=== PATIENT | male | born 2000 ===

== ENCOUNTER 2022-03-12 01:13 | Inpatient (IN) | payer OTHER, SELFPAY ==
[2022-03-12] VITALS (16 sets, daily range): BP systolic 107–145; BP diastolic 59–94; PULSE 62–96; RESP 16–18; TEMP 36.3–37; O2SAT 97–100; BMI 31.7; BMI 31.2
--- NOTE | 2022-03-12 01:26 | ED_ITS ---
HPI - URI/Sore Throat General Time Seen by Provider: 01:26 Date Seen: 03/12/22 Chief Complaint: Sore Throat Stated Complaint: Swollen Tonsils, difficulty speaking Time Seen by Provider: 03/12/22 01:26 Source: patient and RN notes reviewed Mode of arrival: ambulatory Limitations: no limitations History of Present Illness HPI Narrative: KHALIF is a very pleasant 21-year-old male previously healthy who comes to the emergency room with 2 days of sore throat mainly on the left now with tonsillar swelling and change in his voice. He has never had this before. He denies a fever. He denies any belly pain. He notes that he is still able to breathe and swallow but it does cause him pain. He notes that he has pain radiating into his left ear. He has not taken any medications at this time. No nausea vomiting. Related Data Allergies Allergy/AdvReac Type Severity Reaction Status Date / Time No Known Drug Allergies Allergy Verified 03/12/22 01:33 Review of Systems Status of ROS: Reports: 10 or more systems reviewed and unremarkable except as noted in History and below Const: Denies: fever or chills ENMT: Reports: throat pain, throat swelling, difficulty swallowing and other (Change in voice); Denies: hoarseness Cardio: Denies: chest pain or shortness of breath with exertion Resp: Denies: shortness of breath or cough GI: Reports: difficulty swallowing; Denies: abdominal pain, nausea or vomiting Neuro: Denies: headache Allergy/Immuno: Reports: throat swelling Exam Narrative: Exam Narrative: KHALIF is alert and oriented. He looks fatigued but nontoxic in appearance. However, when he talks he has a definite muffled voice. Eyes are clear and TMs without erythema or fluid. He is breathing without difficulty but examination of his oral cavity shows that his tonsils are quite enlarged and touching. There is deviation of the uvula to the right. Left soft palate and peritonsillar area definitely more swollen than the right. Positive for anterior cervical lymphadenopathy could left greater than right. Neck is otherwise supple and he is moving his neck without difficulty. Heart with regular rate and rhythm and lungs are clear bilaterally. Abdomen soft. Moving all extremities. Const: Vital Signs, click to edit/add: Vital Signs - 24 hr 03/12/22 01:22 03/12/22 02:25 03/12/22 02:40 Temperature 97.3 F L Pulse Rate [Right Pulse Oximeter] 83 Respiratory Rate 16 Blood Pressure [Le ft Upper Arm] 129/94 H 117/92 H 135/87 Blood Pressure [Ri ght Upper Arm] Pulse Oximetry 97 Oxygen Delivery Me thod Room Air 03/12/22 03:09 03/12/22 03:30 03/12/22 04:00 Temperature Pulse Rate [Right Pulse Oximeter] 93 96 75 Respiratory Rate 18 18 18 Blood Pressure [Le ft Upper Arm] 143/89 H Blood Pressure [Ri ght Upper Arm] 141/86 H 127/85 Pulse Oximetry 100 99 98 Oxygen Delivery Me thod Room Air Room Air Room Air 03/12/22 04:30 03/12/22 05:00 03/12/22 05:30 Temperature Pulse Rate [Right Pulse Oximeter] 86 62 76 Respiratory Rate 18 18 18 Blood Pressure [Le ft Upper Arm] Blood Pressure [Ri ght Upper Arm] 132/81 133/73 120/72 Pulse Oximetry 100 100 100 Oxygen Delivery Me thod Room Air Room Air Room Air 03/12/22 06:00 03/12/22 06:30 Temperature Pulse Rate [Right Pulse Oximeter] 69 72 Respiratory Rate 18 18 Blood Pressure [Le ft Upper Arm] Blood Pressure [Ri ght Upper Arm] 107/59 L 133/81 Pulse Oximetry 99 100 Oxygen Delivery Me thod Room Air Room Air Documenting provider has reviewed patient's vital signs: yes Course Course Hospital Course: Past medical history: Healthy. No previous surgeries. Social history: Mom here. Family history: No problems with anesthesia. Recommend immediate placement of IV and contrast CT soft tissue neck along with CBC, comprehensive panel, CRP, COVID. Will initiate antibiotic Unasyn 3 g IV and dexamethasone 10 mg IV. Alert ENT as I a.m. quite concerned about this young man's airway. Do suggest move in to stay room. Reevaluation(s) Reevaluation #1: KHALIF has had an extreme reaction to any needles. Our nursing staff has been unable to even get close to DJ to place an IV. We have tried to explain multiple times the importance of a CT and treatment with antibiotics. In spite of that he is extremely challenging. At 1 point he starts vomiting and is very diaphoretic. We did try Ativan 0.5 mg atomizer. This did not help as what we had expected. Did have anesthesia in house and with multiple staff members coaxing him they were able to place an IV in the left antecubital fossa. He received antibiotics and was able to go to CT which unfortunately did show phlegmon. Note that the CT report states abscess but discussion with radiologist notes phlegmon or abscess not well defined at this time. Consultations Consultation #1: Dr. Odin Calderon, microsoft bi consultant came from his house to consult on DJ. He notes that he would recommend antibiotics at this time but would recommend surgery if he has any worsening symptoms. The ENT was able to view the CT while in-house. Agreed with radiology assessment of phlegmon. Vital Signs Vital signs: Initial Vital Signs Temperature 97.3 F L 03/12/22 01:22 Temperature Source Temporal Artery Scan 03/12/22 01:22 Pulse Rate 83 03/12/22 01:22 Respiratory Rate 16 03/12/22 01:22 Blood Pressure 129/94 H 03/12/22 01:22 Blood Pressure Mean 105 03/12/22 01:22 Blood Pressure Position Sitting 03/12/22 01:22 Pulse Oximetry 97 03/12/22 01:22 Oxygen Delivery Method 03/12/22 01:22 Vital Signs Temperature 97.3 F L 03/12/22 01:22 Pulse Rate 83 03/12/22 01:22 Respiratory Rate 16 03/12/22 01:22 Blood Pressure 129/94 H 03/12/22 01:22 Pulse Oximetry 97 03/12/22 01:22 Oxygen Delivery Method 03/12/22 01:22 Temperature 97.3 F L 03/12/22 01:22 Pulse Rate 72 03/12/22 06:30 Respiratory Rate 18 03/12/22 06:30 Blood Pressure 133/81 03/12/22 06:30 Pulse Oximetry 100 03/12/22 06:30 Oxygen Delivery Method 03/12/22 06:30 MDM - URI/Sore Throat MDM Narrative Medical decision making narrative: Assessment/plan 1. Tonsillitis-Decadron 10 mg IV. Recommend repeat in 6 hours. [place] negative but LFTs do appear to be elevated. 2.Phlegmon with developing abscess -Unasyn 3 g IV given prior to CT. Will repeat this dose every 6 hours. For worsening symptoms immediate contact with ENT. 3. Needle phobia -Ativan 0.5 mg x 1. At this time he is doing better and tolerating IV. He will not be tolerant of further draws unless getting some sort of sedative or perhaps EMLA application would be helpful in this case. 4. Disposition-patient will be admitted under the care of [facility] physician. ENT will round in the morning. Addendum: Patient noted that he was feeling better. He is allowed clear liquids per ENT. Obviously, for worsening symptoms he would need to be NPO. Lab Data Attestation: I reviewed the patient's lab results. Labs: Lab Results 03/12/22 03/12/22 03/12/22 Range/Units 02:25 02:25 02:25 WBC 18.83 H (4.50-11.00) K/uL RBC 4.98 (4.30-5.90) m/uL Hgb 15.0 (13.5-17.5) gm/dL Hct 44.3 (37.0-53.0) % MCV 89 (80-100) fL MCH 30 (26-34) pg MCHC 34 (32-36) gm/dL RDW Coeff of Nara 12.5 (11.5-15.5) % Plt Count 355 (140-440) K/uL Neut % (Auto) 77.1 H (42.0-72.0) % Lymph % (Auto) 13.0 L (20-44) % [place] % (Auto) 9.5 (0.0-11.0) % Eos % (Auto) 0.1 (0.0-7.0) % Baso % (Auto) 0.1 (0.0-3.0) % Neut # (Auto) 14.50 H (1.7-7.0) K/uL Lymph # (Auto) 2.40 (0.90-2.90) K/uL [place] # (Auto) 1.80 H (0.00-0.90) K/UL Eos # (Auto) 0.00 (0.00-0.50) K/uL Baso # (Auto) 0.00 (0.00-0.30) K/uL Abs Immat Gran (auto) 0.00 (0.00-0.30) K/uL Imm/Tot Granulo (auto) 0.2 % Sodium 140 (135-149) mmol/L Potassium Not Reportable Chloride 104 (96-114) mmol/L Carbon Dioxide 20 (20-32) mmol/L BUN 10 (5-24) mg/dL Creatinine 0.7 (0.5-1.5) mg/dL Estimated Creat Clear 168.33 Estimated GFR 135 ml/min Glucose 109 (60-115) mg/dL Calcium 9.9 (8.4-10.6) mg/dL Total Bilirubin 2.8 H (0.1-1.5) mg/dL AST 62 H (12-35) U/L ALT 31 (4-50) U/L Alkaline Phosphatase 159 H (40-150) U/L C-Reactive Protein 3.8 H (0.5-1.0) mg/dL Total Protein > 11.0 H (6.0-8.3) g/dL Albumin 5.6 H (3.3-5.0) g/dL SARS-CoV-2 (PCR) (Negative) Monoscreen Negative (Negative) 03/12/22 Range/Units 05:26 WBC (4.50-11.00) K/uL RBC (4.30-5.90) m/uL Hgb (13.5-17.5) gm/dL Hct (37.0-53.0) % MCV (80-100) fL MCH (26-34) pg MCHC (32-36) gm/dL RDW Coeff of Nara (11.5-15.5) % Plt Count (140-440) K/uL Neut % (Auto) (42.0-72.0) % Lymph % (Auto) (20-44) % [place] % (Auto) (0.0-11.0) % Eos % (Auto) (0.0-7.0) % Baso % (Auto) (0.0-3.0) % Neut # (Auto) (1.7-7.0) K/uL Lymph # (Auto) (0.90-2.90) K/uL [place] # (Auto) (0.00-0.90) K/UL Eos # (Auto) (0.00-0.50) K/uL Baso # (Auto) (0.00-0.30) K/uL Abs Immat Gran (auto) (0.00-0.30) K/uL Imm/Tot Granulo (auto) % Sodium (135-149) mmol/L Potassium Chloride (96-114) mmol/L Carbon Dioxide (20-32) mmol/L BUN (5-24) mg/dL Creatinine (0.5-1.5) mg/dL Estimated Creat Clear Estimated GFR ml/min Glucose (60-115) mg/dL Calcium (8.4-10.6) mg/dL Total Bilirubin (0.1-1.5) mg/dL AST (12-35) U/L ALT (4-50) U/L Alkaline Phosphatase (40-150) U/L C-Reactive Protein (0.5-1.0) mg/dL Total Protein (6.0-8.3) g/dL Albumin (3.3-5.0) g/dL SARS-CoV-2 (PCR) Negative SARS-CoV-2 (Negative) Monoscreen (Negative) Critical Care Time Critical Care Time Total Critical Care Time in Minutes: 60 Discharge Plan Discharge Clinical Impression: Acute tonsillitis, Phlegmon, Severe needle phobia Patient Disposition: Admitted As Inpatient Condition: Improved
[2022-03-12] MEDS: LORazepam 2 MG/ML inj 0.5 MG IV (02:00)
[2022-03-12] MEDS: ONDANSETRON ODT 4 MG TAB PO (02:15)
--- NOTE | 2022-03-12 02:28 | CRLHL7_ITS ---
For Patients: As a result of the Cures Act, medical imaging exams and procedure reports are released immediately into your electronic medical record. You may view this report before your referring provider. If you have questions, please contact your health care provider. DATE: 03/12/2022 CLINICAL HISTORY: Patient with bilateral tonsillar swelling, left greater than right. TECHNIQUE: Standard helical CT image acquisition of the neck up to the skull base after bolus intravenous contrast enhancement. Multiplanar reconstructed images performed on a separate workstation. COMPARISON: None. FINDINGS: There is bilateral tonsillar edema consistent with acute tonsillitis with near complete narrowing of airway at tonsillar level. There is an associated 2.0 x 1.2 x 1.6cm left tonsillar abscess and reactive bilateral cervical adenopathy measuring up to 1.3cm. The visualized intracranial contents are unremarkable. The visualized lung apices are unremarkable. The thyroid gland is unremarkable. The cervical spine is unremarkable. IMPRESSION: Bilateral tonsillar edema is consistent with acute tonsillitis causing near complete narrowing of airway at tonsillar level. There is an associated 2.0 x 1.2 x 1.6cm left tonsillar abscess and reactive bilateral cervical adenopathy measuring up to 1.3cm. Please note that all CT scans at this facility use dose modulation, iterative reconstruction, and/or weight-based dosing when appropriate to reduce radiation dose to as low as reasonably achievable. Dictated by Will Brar MD @ 03/12/2022 5:18:44 AM (Electronically Signed)
[2022-03-12 02:33] LABS: Basophils Percent Auto 0.1 % (0.0-3.0); Eosinophils Percent Auto 0.1 % (0.0-7.0); Hematocrit 44.3 % (37.0-53.0); Immature Granulocytes Pct Auto 0.2 %; Mean Corpuscular HGB Conc 34 gm/dL (32-36); Mean Corpuscular Hemoglobin 30 pg (26-34); Mean Corpuscular Volume 89 fL (80-100); Monocytes Percent Auto 9.5 % (0.0-11.0); Neutrophils Percent Auto 77.1 % (42.0-72.0); Platelet Count* 355 K/uL (140-440); RDW Coefficient of Variation % 12.5 % (11.5-15.5); Red Blood Count 4.98 m/uL (4.30-5.90); White Blood Count* 18.83 K/uL (4.50-11.00)
[2022-03-12 02:37] LABS: Slide Review Reflex No
[2022-03-12 02:40] LABS: Mono Screen* Negative (Negative)
[2022-03-12] MEDS: 0.9 % SODIUM CHLORIDE 1000 ml 1,000 ML IV (02:40)
[2022-03-12] MEDS: dexAMETHasone 10 MG/ML inj IVP ×2 (02:43→08:22)
[2022-03-12] MEDS: AMPICILLIN/SULBACTAM 3 GM in 0.9 % SODIUM CHLORIDE Mini-bag 100 ML IVPB ×4 (02:45→20:15)
[2022-03-12 02:48] LABS: Albumin* 5.6 g/dL (3.3-5.0); Chloride* 104 mmol/L (96-114); Sodium* 140 mmol/L (135-149)
[2022-03-12 02:51] LABS: Creatinine* 0.7 mg/dL (0.5-1.5); Est. Creatinine Clearance* 168.33; Estimated Glomerular Filt Rate 135 ml/min
[2022-03-12 02:52] LABS: Alkaline Phosphatase* 159 U/L (40-150); Bilirubin Total* 2.8 mg/dL (0.1-1.5); Blood Urea Nitrogen* 10 mg/dL (5-24); Calcium* 9.9 mg/dL (8.4-10.6); Carbon Dioxide* 20 mmol/L (20-32); Glucose* 109 mg/dL (60-115)
[2022-03-12 02:55] LABS: C Reactive Protein* 3.8 mg/dL (0.5-1.0)
--- NOTE | 2022-03-12 03:30 | ED.NURSE ---
Dr. Chávez in Pt room now, Pt mom at BS.
[2022-03-12 04:10] LABS: Aspartate Amino Transferase* 62 U/L (12-35); Total Protein* > 11.0 g/dL (6.0-8.3)
[2022-03-12 04:12] LABS: Alanine Aminotransferase* 31 U/L (4-50)
--- OUTSIDE RECORDS SUMMARY | 2022-03-12 04:42 | XMS_ITS | Encounter Summary ---
:2000 Author Organization Sincerely Address [address] [place] [address] Care Team Providers Name Role Phone Destiny Peralta MD Primary Care Provider Reason for Visit Reason Comments Patient Care Coordination Encounter Details Date Type Department Care Team Description 01/08/2014 Pt Care Coordination [facility] Destiny Peralta [address] [place] [place] [address] [address] [facility] [address] [phone] [place], [place] [address] (Wo rk) Social History Tobacco Use Types Packs/Day Years Used Date Smoking Tobacco: Passive Smoke Exposure - Never Smoker Comments: no smokers at home 11/13,matern all grandmother's home Alcohol Use Standard Drinks/Week Comments Not Asked 0 (1 standard drink = 0.6 oz pure alcoho l) Sex Assigned at Date Recorded Not on file documented as of this encounter Progress Notes Nicole Clemente RN - 01/22/2014 4:30 PM CDT Left message to call back. Nicole Clemente RN 01/22/2014, 4:30 PM Nicole Clemente RN - 01/20/2014 4:43 PM CDT Father states that Sue is in the shower. He will be able to talk on MondayJanuary 22 at 430pm. Will try him then. Nicole Clemente RN 01/20/2014, 4:48 PM Gillian Corrigan - 01/20/2014 4:38 PM CDT Father ( Elliot Ray ) calling you back, please try again. Nicole Clemente RN - 01/20/2014 3:45 PM CDT Left message to call back. Unable to reach by phone wrote letter to try to follow up with patient. Will try again in 1 month. Nicole Clemente RN 01/20/2014, 3:46 PM Nicole Clemente RN - 01/17/2014 4:02 PM CDT Left message to call back. Nicole Clemente RN 01/17/2014, 4:02 PM Nicole Clemente RN - 01/08/2014 2:20 PM CDT Left message to call back. Nicole Clemente RN 01/08/2014, 2:21 PM documented in this encounter Plan of Treatment Not on filedocumented as of this encounter Visit Diagnoses Not on filedocumented in this encounter Care Teams Bobbin Fixer Relationship Specialty Start Date End Date Destiny Peralta MD PCP - General Pediatric Medicine 09/23/13 01/21/15 [address] [place] [address] documented as of this encounter
--- OUTSIDE RECORDS SUMMARY | 2022-03-12 04:42 | XMS_ITS | Encounter Summary ---
:2000 Author Organization [employer] Address [address] [place] [address] Care Team Providers Name Role Phone Destiny Peralta MD Primary Care Provider Reason for Visit Reason Comments Patient Care Coordination Encounter Details Date Type Department Care Team Description 06/10/2014 Pt Care Coordination [facility] Destiny Peralta [address] [address] [address] [phone] [place], [place] [address] (Wo rk) Social History [...] encounter Progress Notes Nicole Clemente RN - 06/24/2014 4:43 PM CDT See Pt care coordination healthcare home notes. Nicole Clemente RN 06/24/2014, 4:46 PM Nicole Clemente RN - 06/20/2014 4:36 PM CDT Left message to call back. Nicole Clemente RN 06/20/2014, 4:36 PM Nicole Clemente RN - 06/13/2014 4:43 PM CST No answer. Rang and rang. Will try again later. Nicole Clemente RN 06/13/2014, 4:44 PM documented in this encounter Miscellaneous Notes Assessment & Plan Note - Nicole Clemente RN - 06/24/2014 4:41 PM CDTAssociated Problem(s): PT CARE COORDINATION - [facility] (Resolved 07/14/2014) Per father he has not had daiciyon for the past 2 weeks. His mother has not returned him. They are going back to court for this on 06/25/2014. Father states this is more of a civil matter. Will continuesame goals and check up in 3 weeks. Nicole Clemente RN 06/24/2014, 4:41 PM documented in this encounter Plan of Treatment Not on filedocumented as of this encounter Visit Diagnoses Not on filedocumented in this encounter Care Teams Residence Life Coordinator Relationship Specialty Start Date End Date Destiny Peralta MD PCP - General Pediatric Medicine 09/23/13 01/21/15 [address] [place] [address] documented as of this encounter
--- OUTSIDE RECORDS SUMMARY | 2022-03-12 04:42 | XMS_ITS | Encounter Summary ---
:2000 Author Organization [employer] Address [address] [place] [address] Care Team Providers Name Role Phone Michele Hernandez MD Primary Care Provider Encounter Details Date Type Department Care Team Description 10/09/2013 Correspondence External to External, Provid er SCHOOL ASSESSMENTS [place] [address] Social History Tobacco Use Types Packs/Day Years Used Date Smoking Tobacco: Passive Smoke Exposure - Never Smoker Comments: no smokers at home 11/13,matern all grandmother's home Alcohol Use Standard Drinks/Week Comments Not Asked 0 (1 standard drink = 0.6 oz pure alcoho l) Sex Assigned at Date Recorded Not on file documented as of this encounter Plan of Treatment Not on filedocumented as of this encounter Visit Diagnoses Not on filedocumented in this encounter Care Teams Is Support Analyst Relationship Specialty Start Date End Date Michele Hernandez MD PCP - General Family Practice 08/13/21 [address] [place], [place] [id number] documented as of this encounter
--- OUTSIDE RECORDS SUMMARY | 2022-03-12 04:42 | XMS_ITS | Encounter Summary ---
:2000 Author Organization [employer] Address [address] [place] [address] Care Team Providers Name Role Phone Destiny Peralta MD Primary Care Provider Reason for Visit Reason Comments Patient Care Coordination Encounter Details Date Type Department Care Team Description 04/22/2014 Pt Care Coordination [facility] Destiny Peralta [address] [place] [place] [address] [address] [facility] [address] [phone] [place], [place] [address] (Wo rk) Social History [...] encounter Progress Notes Nicole Clemente RN - 05/06/2014 3:13 PM CST Wrote letter since unable to reach by phone. Nicole Clemente RN 05/06/2014, 3:13 PM VIOUR SUPPORT TEACHER Nicole Clemente RN - 04/29/2014 4:32 PM CST Left message to call back. Nicole Clemente RN 04/29/2014, 4:32 PM VIOUR SUPPORT TEACHER Nicole Clemente RN - 04/25/2014 4:05 PM CST Left message to call back. Nicole Clemente RN 04/25/2014, 4:05 PM VIOUR SUPPORT TEACHER Nicole Clemente RN - 04/22/2014 3:55 PM CST Left message to call back. Nicole Clemente RN 04/22/2014, 3:55 PM VIOUR SUPPORT TEACHER documented in this encounter Plan of Treatment Not on filedocumented as of this encounter Visit Diagnoses Not on filedocumented in this encounter Care Teams Valve Grinder Relationship Specialty Start Date End Date Destiny Peralta MD PCP - General Pediatric Medicine 09/23/13 01/21/15 [address] [place] [address] documented as of this encounter
--- OUTSIDE RECORDS SUMMARY | 2022-03-12 04:42 | XMS_ITS | Encounter Summary ---
:2000 Author Organization [employer] Address [address] [place] [address] Care Team Providers Name Role Phone Destiny Peralta MD Primary Care Provider [phone] Encounter Details Date Type Department Care Team Description 07/14/2014 Notes/Orders [facility] En counter for [facility], long-term (current) [address] [place] [address] medications (Primary [phone] Dx) Social History Tobacco Use Types Packs/Day Years Used Date Smoking Tobacco: Passive Smoke Exposure - Never Smoker Comments: no smokers at home 11/13,matern all grandmother's home Alcohol Use Standard Drinks/Week Comments Not Asked 0 (1 standard drink = 0.6 oz pure alcoho l) Sex Assigned at Date Recorded Not on file documented as of this encounter Nursing Notes Vito Brown - 07/15/2014 12:24 PM CDT Letter was sent to patient. Vito Brown CMA 07/15/2014, 12:24 PM Interface, Out Surescripts Prov Query - 07/14/2014 12:45 PM CDT SCHEDULE THE FOLLOWING: - OFFICE VISIT BY: 09/19/2014 (Coming due as of 09/19/2014 for montelukast (SINGULAIR) 5 MG chewabletablet) - LAST QUALIFYING VISIT IN PEDIATRICS: 09/24/2013 - NEXT SCHEDULED VISIT: None - NEXT LAB APPOINTMENT: None Powered by [employer], Reference: [id number], 07/14/2014 12:45:47 PM CDT, Pool: TAMMY BENAVIDES RN ([id number]) documented in this encounter Plan of Treatment Not on filedocumented as of this encounter Visit Diagnoses Diagnosis Encounter for long-term (current) use of other medications - Primary documented in this encounter Care Teams Director Of Preclinical Research Relationship Specialty Start Date End Date Destiny Peralta MD PCP - General Pediatric Medicine 09/23/13 01/21/15 [address] [place] [address] documented as of this encounter
--- OUTSIDE RECORDS SUMMARY | 2022-03-12 04:42 | XMS_ITS | Encounter Summary ---
:2001 Author Organization [employer] Address [address] [place] [address] Care Team Providers Name Role Phone Destiny Peralta MD Primary Care Provider Reason for Visit Reason Comments Patient Care Coordination Encounter Details Date Type Department Care Team Description 07/14/2014 Pt Care Coordination [facility] Destiny Peralta [address] [address] [address] [facility] [address] [phone] [place], [place] [address] (Wo rk) Social History [...] encounter Progress Notes Nicole Clemente RN - 07/14/2014 4:41 PM CDT Patient is no longer living with father and now living with mother. Nicole Clemente RN 07/14/2014, 4:41PM documented in this encounter Plan of Treatment Not on filedocumented as of this encounter Visit Diagnoses Not on filedocumented in this encounter Care Teams Risk Compliance Manager Relationship Specialty Start Date End Date Destiny Peralta MD PCP - General Pediatric Medicine 09/23/13 01/21/15 [address] [facility] [place] [address] documented as of this encounter
--- OUTSIDE RECORDS SUMMARY | 2022-03-12 04:42 | XMS_ITS | Encounter Summary ---
:2000 Author Organization [employer] Address [address] [place] [address] Care Team Providers Name Role Phone Garfield Mock MD Primary Care Provider Unavailable Reason for Visit Reason Comments Refill VENTOLIN HFA 108 (90 BASE) M CG/ACT inhaler [Pharmacy Med Name: VENTOLIN HFA INH W/DOS CTR [id number]] Encounter Details Date Type Department Care Team Description 08/22/2015 Refill [facility] Garfield Mock Refi ll (VENTOLIN HFA 108 Kapil White MD (90 BASE) MCG/ACT [address] [place] [address] inhaler [[place] [address] MAIL STOP [id number] Name: VENTOLIN HFA INH [phone] [place], [place] W/DOS CTR 20 [id number]]) [address] Social History Tobacco Use Types Packs/Day Years Used Date Smoking Tobacco: Never Smokeless Tobacco: Never Alcohol Use Standard Drinks/Week Comments Not Asked 0 (1 standard drink = 0.6 oz pure alcoho l) Sex Assigned at Date Recorded Not on file documented as of this encounter Nursing Notes Garfield Mock MD - 08/24/2015 2:49 PM CDT Medication refill is ok and sent to pharmacy electronically. Isabell Solorio RN - 08/24/2015 9:55 AM CDT Routing to [facility] to assign PCP and then route to provider for refill. If no longer [facility] pt, please ask them to notify pharmacy to no longer send refills to [facility]. Isabell Solorio, RN Interface, Out Worlize Prov Query - 08/22/2015 1:51 PM CDT VENTOLIN HFA 108 (90 BASE) MCG/ACT inhaler [Pharmacy Med Name: VENTOLIN HFA INH W/DOS CTR [id number]] Protocol: Respiratory - Bronchodilator Inhalers -> Refill x 6 months (until due for an office visit) Last qualifying visit: 11/26/2014 (in Family Practice) Next scheduled visit: None Last ordered: 11/26/2014 (269 days ago) QTY: 25.5, Refills: 2, Sig: inhale 2 puffs by mouth every 4 hours as needed for wheezing (coughing). (changed but equivalent) Powered by [employer], Reference: [id number], 08/22/2015 1:51:11 PM CDT, Pool: WAYNE BENAVIDES RN ([id number]) documented in this encounter Plan of Treatment Not on filedocumented as of this encounter Visit Diagnoses Not on filedocumented in this encounter Care Teams Deodorizer Operator Relationship Specialty Start Date End Date Garfield Mock MD PCP - General Family Practice 08/24/15 08/12/21 documented as of this encounter
--- OUTSIDE RECORDS SUMMARY | 2022-03-12 04:42 | XMS_ITS | Encounter Summary ---
:2000 Author Organization [employer] Address [address] [place] [address] Care Team Providers Name Role Phone Michele Hernandez MD Primary Care Provider Encounter Details Date Type Department Care Team Description 02/18/2015 Scanned History External to External, Provid er SCHOOL - [employer]ITTEN [place] [address] Social History Tobacco Use Types Packs/Day Years [...] on filedocumented in this encounter Care Teams Spa Coordinator Relationship Specialty Start Date End Date Michele Hernandez MD PCP - General Family Practice 08/13/21 [address] [place], [place] [id number] documented as of this encounter
--- OUTSIDE RECORDS SUMMARY | 2022-03-12 04:42 | XMS_ITS | Encounter Summary ---
:2000 Author Organization [employer] Address [address] [place] [address] Care Team Providers Name Role Phone Garfield Mock MD Primary Care Provider Unavailable Reason for Visit Reason Comments Dental Conversion [facility] to [place] convers ion Encounter Details Date Type Department Care Team Description 09/15/2016 Dental Conversion [facility] General [facility], DDS [address] [place] [id number] [phone] Social History Tobacco Use Types Packs/Day Years [...] on filedocumented in this encounter Care Teams Drawing In Machine Tender Relationship Specialty Start Date End Date Garfield Mock MD PCP - General Family Practice 08/24/15 08/12/21 documented as of this encounter
--- OUTSIDE RECORDS SUMMARY | 2022-03-12 04:42 | XMS_ITS | Encounter Summary ---
:2000 Author Organization [employer] Address [address] [place] [address] Care Team Providers Name Role Phone Garfield Mock MD Primary Care Provider Unavailable Reason for Visit Reason Comments WELL CHILD EXAM Encounter Details Date Type Department Care Team Description 02/24/2016 Office Visit [facility] Pebbles Herring, Encounter for routine [address] child health [place], [place] [address] [address] examination without [phone] [place], [place] abnormal fin dings [id number] (Primary Dx) Social History Tobacco Use Types Packs/Day Years Used Date Smoking Tobacco: Never Smokeless Tobacco: Never Alcohol Use Standard Drinks/Week Comments Not Asked 0 (1 standard drink = 0.6 oz pure alcoho l) Sex Assigned at Date Recorded Not on file documented as of this encounter Last Filed Vital Signs Vital Sign Reading Time Taken Comments Blood Pressure 117/65 02/24/2016 3:04 PM WILDLIFE PROTECTOR Pulse 69 02/24/2016 3:04 PM WILDLIFE PROTECTOR Temperature 36.2 ??C (97.2 ??F) 02/24/2016 3:04 PM WILDLIFE PROTECTOR Respiratory Rate - - Oxygen Saturation - - Inhaled Oxygen Concentration - - Weight 72.6 kg (160 lb) 02/24/2016 3:04 PM WILDLIFE PROTECTOR Height 167 cm (5' 5.75) 02/24/2016 3:04 PM WILDLIFE PROTECTOR Body Mass Index 26.02 02/24/2016 3:04 PM WILDLIFE PROTECTOR Body Mass Index Percentile 94.70 % 02/24/2016 3:04 PM CS T Growth Chart: CDC (Boys, 2-20 Years) documented in this encounter Patient Instructions Patient InstructionsPebbles Herring MD - 02/24/2016 3:37 PM CST 13-14 Year Well Adolescent We would like to see Sue back every other year. If there are any problems before that time, don???t hesitate to call the clinic during business hours. Otherwise, you can call our Careline at [phone] or for 24 hour service. Development ?? Your adolescent may have questions or concerns about puberty and sexual health. ?? Talk about relationships, sex, and values. ?? Friendships will become more important. Peer pressure may begin or continue. ?? Limit your adolescent to 1 to 2 hours of quality screen time each day, according to the [place] [employer] (AAP). Screen time includes television, video game and computer use. Watch TV with your child and supervise Internet use (including social networking sites). ?? The AAP advises keeping TVs, video games and computers out of children???s and teen???s bedrooms. ?? Continue a routine for talking about school and doing homework. The AAP advises you not let your adolescent watch TV while doing homework. ?? Encourage your adolescent???to read for pleasure. ?? Teach your adolescent respect for property and other people. ?? Give your adolescent opportunities for independence within set boundaries. ?? Talk honestly with your adolescent about responsibilities and expectations around: school and homework, dating, driving, activities outside of school, keeping a job. Diet ?? Try to eat together as a family often. ?? Lean beef, iron-fortified cereal, oatmeal, soybeans, spinach and tofu are good sources of iron. ?? Breakfast is important. Make sure your adolescent eats a healthful breakfast every morning. ?? Help your adolescent choose fiber-rich fruits, vegetables and whole grains. Choose and prepare foods and beverages with little added sugars or sweeteners. ?? Offer your adolescent healthful snacks such as fruits, vegetables, healthful cereals, yogurt, pudding, turkey, peanut butter sandwich, fruit smoothie, or cheese. Avoid foods high in sugar or fat. ?? Limit soft drinks and sweetened beverages (including juice) to less than one a day. Limit sweets,treats, snack foods (such as chips), fast foods and fried foods. ?? Drink water and milk instead of sports drinks. Exercise ?? The [place] [employer] recommends adolescents get 60 minutes of moderate to vigorous physical activity each day. If your adolescent???s school does not offer regular physical education classes, organize daily family activities (such as walking or bike riding) or consider enrolling him in cla sses, team sports, or community education activities. ?? In addition to helping build strong bones and muscles, regular exercise can reduce risks of certain diseases, reduce stress levels, increase self-esteem, help maintain a healthy weight, improve concentration, and help maintain good cholesterol levels. ?? Even if your adolescent doesn???t think it???s ???cool,?? he needs to wear the right safety gearfor his activities, such as a helmet, mouth guard, knee pads, eye protection or life vest. Sleep ?? Adolescent's ages 12 to 18 need at least 9 hours of sleep each night on a regular basis. ?? Your adolescent should continue a sleep routine (such as washing his face and brushing teeth). ?? It is still important to keep a regular sleep and waking schedule. Safety ?? When riding in a car, your adolescent needs to be buckled with a lap and shoulder belt. At 13 years old, he may ride in the front seat. (Follow directions from your health care provider.) ?? Do not let anyone smoke in your home or around your adolescent. ?? Talk with your adolescent about the dangers of alcohol, drug and tobacco use. ?? Make sure your adolescent understands safety guidelines for fire, water, animal safety, firearms,social networking Internet sites, and personal safety (including dating). Self-esteem ?? Provide support, attention and enthusiasm for your adolescent???s abilities, achievements and school activities. Show your child affection. ?? Get to know your adolescent???s friends and their parents. ?? Let your child try new skills. ?? Older teenagers may want to begin dating. Set boundaries and talk honestly with your child about your family???s values and morals. ?? Help your adolescent find healthy ways to deal with stress, including talking about concerns. Discipline ?? Teach your adolescent consequences for unacceptable or inappropriate behavior. Talk about your family???s values and morals and what is right and wrong. ?? Use discipline to teach, not punish. Be fair and consistent with discipline. Dental Care ?? Make sure your child brushes his teeth twice a day and flosses once a day. ?? Make regular dental appointments for cleanings and checkups. Thank you for choosing [email or web address] It has been a pleasure taking care of your child today. A dentist appointment each year is important for your child's health. Your child's insurance may payfor this. If you don't know where to take your child to see the dentist, check your child's insurance card or call [phone] for help. LIFE PROTECTOR documented in this encounter Progress Notes Pebbles Herring MD - 02/24/2016 3:37 PM CST [id number] SPORTS QUALIFYING PHYSICAL HISTORY FORM [employer] Student name: Sue Ray Birthdate: 2000 Date of exam: 02/24/2016 History GENERAL QUESTIONS No *1. Has a doctor ever denied or restricted your participation in sports for any reason or told you to give up sports? No 2. Do you have an ongoing medical condition (like diabetes, asthma, anemia, infections)? No 3. Are you currently taking any prescription or nonprescription (myej-iya-ytrpild) medicines or pills? List: none Yes 4. Do you have allergies to medicines, pollens, foods, or stinging insects? No 5. Have you ever spent the night in a hospital? No 6. Have you ever had surgery? HEART HEALTH QUESTIONS ABOUT YOU No *7. Have you ever passed out or nearly passed out DURING exercise? No *8. Have you ever passed out or nearly passed out AFTER exercise? No *9. Have you ever had discomfort, pain, tightness, or pressure in your chest during exercise? No *10. Does your heart race or skip beats (irregular beats) during exercise? 11. Has a doctor ever told you that you have: No High blood pressure? No A heart murmur? No High cholesterol? No A heart infection? No Rheumatic fever? No Kawasaki's disease? No 12. Has a doctor ever ordered a test for your heart? (for example, ECG/EKG, echocardiogram, stress test) No *13. Do you get lightheaded or feel more short of breath than expected during exercise? No *14. Have you ever had an unexplained seizure? No 15. Do you get more tired or short of breath more quickly than your friends during exercise? HEART HEALTH QUESTIONS ABOUT YOUR FAMILY No *16. Has any family member or relative of heart problems or had an unexpected or unexplainedsudden before age 50 (including unexplained drowning, unexplained car accident, or sudden infant syndrome? No *17. Does anyone in your family have hypertrophic cardiomyopathy, Marfan syndrome, arrhythmogenicright ventricular cardiomyopathy, long QT syndrome, short QT syndrome, Brugada syndrome, or catecholaminergic polymorphic ventricular tachycardia? No *18 Does anyone in your family have a heart problem, pacemaker, or implanted defibrillator? No *19. Has anyone in your family had unexplained fainting, unexplained seizures, or near drowning? BONE AND JOINT QUESTIONS No 20. Have you ever had an injury, like a sprain, muscle or ligament tear or tendonitis that causedyou to miss a practice or game? No 21. Have you had any broken or fractured bones or dislocated joints? No 22. Have you ever had an injury that required x-rays,MRI, CT scan, injections, therapy, a brace, a cast, or crutches? No 23. Have you ever had a stress fracture? No 24. Have you ever been told that you have or have you had an x-ray for neck instability or atlantoaxial instability? (Down syndrome or dwarfism) No 25. Do you regularly use a brace, orthotics or other assistive device? No 26. Do you have a bone, muscle, or joint injury that bothers you? No 27. Do any of your joints become painful, swollen, feel warm, or look red? No 28. Do you have any history of juvenile arthritis or connective tissue disease? MEDICAL QUESTIONS yes 29. Has a doctor ever told you that you have asthma or allergies? no 30. Do you cough, wheeze, experience chest tightness, or have difficulty breathing during or after exercise? yes 31. Is there anyone in your family who has asthma? yes 32. Have you ever used an inhaler or taken asthma medicine? No 33. Do you develop a rash or hives when you exercise? No 34. Were you born without or are you missing a kidney, an eye, a testicle (males), or any other organ? No 35. Do you have groin pain or a painful bulge or hernia in the groin area? No *36. Have you had infectious mononucleosis (mono) within the last month? No 37. Do you have any rashes, pressure sores, or other skin problems? No 38. Have you had a herpes or MRSA skin infection? No *39. Have you ever had a head injury or concussion? No *40. Have you ever had a hit or blow to the head that caused confusion, prolonged headache, or memory problems? No 41. Do you have a history of seizure disorder? No 42. Do you have headaches with exercise? No *43. Have you ever had numbness, tingling, or weakness in your arms or legs after being hit or falling? No 44. Have you ever been unable to move your arms or legs after being hit or falling? No 45. Have you ever become ill while exercising in the heat? No 46. Do you get frequent muscle cramps when exercising? No 47. Do you or someone in your family have sickle cell trait or disease? No 48. Have you had any problems with your eyes or vision? No 49. Have you had any eye injuries? No 50. Do you wear glasses or contact lenses? No 51. Do you wear protective eyewear, such as goggles or a face shield? No 52. Do you worry about your weight? No 53. Are you trying to or has anyone recommended that you gain or lose weight? No 54. Are you on a special diet or do you avoid certain types of foods? No 55. Have you ever had an eating disorder? No 56. Do you have any concerns that you would like to discuss with a doctor? FEMALES ONLY na 57. Have you ever had a menstrual period? na 58. How old where you when you had your first menstrual period? na 60. How many menstrual periods have you had in the last year? Notes: none Follow-Up Questions About More Sensitive Issues: 1. Do you feel stressed out or under a lot of pressure? No 2. Do you ever feel so sad or hopeless that you stop doing some of your usual activities for more than a few days? No 3. Do you feel safe? Yes 4. Have you ever tried cigarette, cigar, or pipe smoking, even 1 of 2 puffs? No Do you currently smoke? No 5. During the past 30 days, did you use chewing tobacco, snuff, or dip? No 6. During the past 30 days, have you had any alcohols, even just one? No 7. Have you ever taken steroid pills or shots without a doctor's prescription? No 8. Have you ever taken any medications or supplements to help you gain or lose weight or improve your performance? No 9. Question Risk Behaviors like guns, seatbelts, unprotected sex, domestic violence, drugs, and others. Notes About Follow-Up Questions: none Subjective Sue Ray is a 15 y.o. male who presents accompanied by his mother for routine childcare aide. Parental/Patient Concerns absent SCHOOL Name: [employer] Grade: 9th Success: doing well Sports/Recreational Activities Sports: basketball Exercise: adequate Cardiovascular Risk: none Extracurricular Activities: none Recreation/Hobbies/TV: 2 hours/day screen time and does not read daily I have reviewed and updated the family, past and surgical history. Daily Activities Nutrition: well balanced and varied diet, adequate milk intake Sleep: adequate sleep Dental Care: last dental visit within 6 months brushes daily Developmental Assessment Family/Relationships/Community Current Living Situation: lives with mom, step dad and sister Family: no problems identified Peer: sociable Abuse: absent Mental Health Issues: None Active Support/Resources: Family/Friends Environmental Risks Tuberculosis Screening: Not indicated Review of Systems Detailed review of systems including constitutional, skin, eyes, ENT, resp, CVS, GI & , revealed no abnormality except as detailed above. Required Testing Hemoglobin Prior Hgb: HGB (g/dl) Date Value 02/23/2004 12.4 Hemoglobin test required?: Yes (Menstruating, no testing since age 13) Kidney/Bladder Screening: Prior Urine: No results found for: ULEUK Urinalysis required?: Yes (no urinalysis since age 13) Objective BP 117/65 mmHg Pulse 69 Temp(Src) 97.2 ??F (36.2 ??C) (Tympanic) Ht 5' 5.75 (1.67 m) Wt 160lb (72.576 kg) BMI 26.02 kg/m2 Estimated body mass index is 26.02 kg/(m^2) as calculated from the following: Height as of this encounter: 5' 5.75 (1.67 m). Weight as of this encounter: 160 lb (72.576 kg). Hearing Screening 125Hz 250Hz 500Hz 1000Hz 2000Hz 4000Hz 8000Hz Right ear: 20 10 5 0 5 Left ear: 10 5 0 5 5 Visual Acuity Screening Right eye Left eye Both eyes Without correction: 10/10 10/10 With correction: Normal Abnormal GENERAL X HEENT Head X Eyes/Nose X Ears X Mouth/Pharynx X NECK X LYMPHATICS X LUNGS X CV X ABDOMEN X X MS X NEURO X SKIN X Vision Objective exam completed. No problems found. and Subjective assessment. No problems found Visual Acuity Screening performed and documented in nurse's note. Hearing Objective exam completed. No problems found. and Subjective assessment. No problems found Audiogram passed. Toi Staging GENITALS 4: penis larger, glans developed, scrotum darkened PUBIC HAIR 4: adult type hair, but less than adult, no spread to medial thighs Assessment Healthy young adolescent. Cleared for sports without restriction Plan Per orders and patient instructions. Plan: Immunizations: Up-to-Date and Health Maintenance: Lifestyle, health, and safety counseling Counseling Immunizations: Reviewed benefits of receiving immunizations with parents, including deferring immunizations puts their child(amari) at risk of acquiring and transmitting vaccine-preventable disease(s). Informed that it is strongly recommended by this clinician, the [place] [employer]s, the [place] [employer], and the Centers for Disease Control and Prevention that vaccinesbe given according to recommendations. Parent deferred vaccinations at today's visit. Vaccine information sheets on deferred vaccinations provided. Social: peer pressure Parenting: increased autonomy in decision making Nutrition: age specific nutritional needs and Counseling about nutrition provided to patient and/or parent Play and communication: organized sports/regular exercise and appropriate use of TV/video games (total Screen Time) Health: Counseling about physical activity provided to patient and/or parent Dental: Reinforced benefits of daily dental care. Emphasized need for annual dental exam by a licensed dentist Safety: no safety issues identified. child should ride in care seat until .he reaches 80 lbs child should wear helmet when riding bicycle, scooter or skates install smoke/carbon monoxide detectors in home Sexuality: the following issues were discussed: self testicular exam Transition Readiness (Pediatric to Adult Medicine): Discussed Pediatric Transitions to Adult Care: Age & Transition Topics to Review Follow-up Next preventive health care visit in 1 year Pebblse Herring MD LIFE PROTECTOR documented in this encounter Plan of Treatment Not on filedocumented as of this encounter Visit Diagnoses Diagnosis Encounter for routine child health exami nation without abnormal findings - Primary Routine or child health check documented in this encounter Care Teams Archivist [employer] History Relationship Specialty Start Date End Date Garfield Mock MD PCP - General Family Practice 08/24/15 08/12/21 documented as of this encounter
--- OUTSIDE RECORDS SUMMARY | 2022-03-12 04:42 | XMS_ITS | Encounter Summary ---
:2000 Author Organization [facility] Address [address] [place] [address] Care Team Providers Name Role Phone Destiny Peralta MD Primary Care Provider [phone] Reason for Referral Consult/Transfer Care (Routine) - Closed Specialty Diagnoses / Procedures Referred By Contact Refer red To Contact Destiny Peralta MD [address] [place] [address] Referral ID Status Reason Start Date Expiration Date Visits Requ ested Visits Authorized [id number] Closed 10/08/2013 01/07/2015 1 1 Scheduling Instructions Your provider has recommended an appoint ment with a [facility] nurse. A maintenance scheduler will contact you within the next 3 in days to assist you in setting up this appointment. Reason for Visit Reason Comments Follow-up, NOS asthma,multiple Encounter Details Date Type Department Care Team Description 10/08/2013 Office Visit [facility] Sena Peralta pe rsistent asthma, uncomplicated (Primary Dx); Department Destiny Elizondo MD Allergic rhinitis; [address] Stress at home; [place] [address] [place] [address] Mood problem [phone] Social History Tobacco Use Types Packs/Day Years [...] Sign Reading Time Taken Comments Blood Pressure 101/67 10/08/2013 9:27 AM CDT Pulse 80 10/08/2013 9:27 AM CDT Temperature 36.2 ??C (97.2 ??F) 10/08/2013 9:27 AM CDT Respiratory Rate 19 10/08/2013 9:27 AM CDT Oxygen Saturation 100% 10/08/2013 9:27 AM CDT Inhaled Oxygen Concentration - - Weight 44 kg (97 lb) 10/08/2013 9:27 AM CDT Height - - Body Mass Index - - documented in this encounter Patient Instructions Patient InstructionsNicole Clemente RN - 10/08/2013 2:15 PM CDT If you have any questions or concerns please contact: Your Care Team at [facility] Department :[phone] opt. 7 Primary Care Provider: Destiny Peralta MD RN Coordinator: Nicole VASQUES CareLine at [phone] or after hours and on weekends. Care Coordination (Community Resources, Specialists, Home Health Agency, Caregiver, Supply Vendor, Commanding Officer Homicide Squad) Contact Name KRISTI Obtained? Phone Number Role in Care Comments Action Plan Sue's Chosen Goal: To work on his mental health Detailed Action Steps to Achieve Goal & Who Will Complete: Sue will ride his bike with his sister twice a week for a half hour after school for 4 weeks starting October 14, 2013. Sue will ask his father once a week if he can hang out with a friend at school starting October. Sue will get contact information from friends at school starting October 09, 2013. Father will call to make Sue a therapy appointment before next scheduled telephone visit. Confidence Level: On a scale of 1-10, Sue's confidence level to achieve this goal is 8 Date Goal Achieved Additional Patient Instructions 1. If you need anything prior to the next scheduled telephone visit please call Nicole or Caryn at [phone] Opt. 7 Follow-Up Nicole will follow-up with Sue and Timo by phone on October 21, 2013. documented in this encounter Progress Notes Destiny Peralta MD - 10/08/2013 9:39 AM CDT Sue Ray is a 12 yr old male who presents to clinic with father for a shared RN visit due follow-up on multiple concerns: Asthma- pt completed prednisone x 5 days, and used albuterol inhaler, flovent 44 two puffs BID for aweek or so (father not exactly sure) for an acute asthma exacerbation. Please see my note in EPIC from 09/24 for details. He has also been taking montelukast and loratadine. Pt pretty much seems back tohis baseline according to father. Coughing and wheezing or completely resolved. Father continues to have concerns about him having shallow breathing and breathing through his mouth during sleep. He hasnot waking up at night with any breathing difficulties. Patient does continue to have concerns that he has difficulty with his breathing when he is being physically active/playing sports. He has not been using albuterol prior to physical activity. Asthma severity: moderate persistent asthma symptoms based on daily asthma symptoms on PRN albuterolonly (prior to 09/24 when the above meds were started). Asthma Control Test - Peds 10/08/2013 ACT Total 11 Risk Assessment 1 Today's ACT reflects symptoms that were occuring prior to starting above meds. Father brings parent development the/behavioral questionnaire for my review. Father is concerns: Whyis patient's so scared and emotional? Why is he nervous all the time? Why is he afraid to open up and talk to me? Father first noticed these issues when he gained custody of the patient and whenever hereturns from mother's house. Patient spends two weekends a month with his mother and is otherwise living with father. Father has full custody. What are your child's strengths: Father notes the patient as artistic, a great leader when he comes out of his show, compassionate, and at times appears to be responsible. He does have an individualized education plan at school. Family history: A nephew with is noted to have ADD. Anxiety and depression are also present in the family. Child health history: Father has concerns about frequent and/or severe headaches, frequent stomachaches, and developmentally he has concerns about socializing and writing. Father's education level XIIth grade. He is employed full-time as a high school music instructor. Father completed the initial [place] assessment: Four symptoms of inattention were marked as being observed often or very often. One symptom of hyperactivity was notedvery often. Please see smart forms for full details. [place] form (from father only) suggests depr ession/anxiety. Pt has been seen Aunchristina Purcell once in the past, but no follow-up appt has been made yet. I did encourage dad to do this at previous visit. Outpatient Prescriptions Prior to Visit Medication Sig Dispense Refill ??? ALBUterol sulfate hfa 108 (90 BASE) MCG/ACT inhaler Inhale 2 Puffs by mouth every 4 hours as needed for Wheezing (coughing). 18 g 3 ??? diphenhydrAMINE (BENADRYL) 25 MG capsule Take 1 Cap by mouth every 6 hours as needed for Itchingor Allergies. 30 Cap 1 ??? EPINEPHrine (AUVI-Q) 0.3 MG/0.3ML SAMMIE injection Inject 0.3 mL intramuscularly once as needed for 1 dose. 1 Each 1 ??? EPINEPHrine (EPIPEN) 0.3 MG/0.3ML injection Inject 0.3 mL intramuscularly once as needed for up to 1 dose. into thigh as directed for and/or potential for an allergic reaction 2 Each 1 ??? fluticasone (FLONASE) 50 MCG/ACT nasal solution Apply or instill 1 Point Clear into both nostrils daily. 16 g 5 ??? fluticasone (FLOVENT HFA) 44 MCG/ACT inhaler Inhale 2 Puffs by mouth two times a day. Increase per Asthma Action Plan when in yellow or red zone. 10.6 g 3 ??? loratadine (AKA CLARITIN) 10 MG tablet Take 1 Tab by mouth daily. 30 Tab 3 ??? montelukast (SINGULAIR) 5 MG chewable tablet Take 1 Tab by mouth daily. 90 Tab 2 ??? predniSONE (AKA DELTASONE) 20 MG tablet Take 1 Tab by mouth two times a day for 5 days. 10 Tab 0 No facility-administered medications prior to visit. Allergies Allergen Reactions ??? Shellfish Allergy Other, see comments Swelling ,rash,hives Objective Blood pressure 101/67, pulse 80, temperature 97.2 ??F (36.2 ??C), temperature source Tympanic, resp.rate 19, weight 97 lb (43.999 kg), SpO2 100 %. General: Alert, tearful, cooperative young man Lungs clear bilaterally with no wheezing or crackles. Assessment/Plan 1. Moderate persistent asthma, uncomplicated - restart Flovent 44, 2 puffs BID and continue until seen in follow-up in 2 months. Also continue albuterol PRN and before sports/exercise. Continue Singulair. 2. Allergic rhinitis- continue loratadine. Take Flonase consistently every night for the next 2 months. I hope this will improve his mouth breathing. 3. Family stress, mood problem- Schedule counseling visit SAM. RTC in 2 months for asthma and allergies follow-up visit. Seek care sooner with concerns. Please see patient instructions and orders. Call or return to clinic if these symptoms worsen or fail to improve as anticipated. Destiny Peralta MD documented in this encounter Plan of Treatment Scheduled Referrals Name Type Priority Associated Diagnoses Order S [facility] NURSE APPOINTMENT Referral Routine Ordered: 0 10/08/2013 ADULT/PEDS [[id number]] documented as of this encounter Visit Diagnoses Diagnosis Moderate persistent asthma, uncomplicate d ([facility]) - Primary Unspecified asthma Allergic rhinitis Allergic rhinitis, cause unspecified Stress at home ([facility]) Unspecified family circumstance Mood problem ([facility]) Other mental problems documented in this encounter Care Teams Bottle Capping Machine Operator Relationship Specialty Start Date End Date Destiny Peralta MD PCP - General Pediatric Medicine 09/23/13 01/21/[address] [place] [id number] documented as of this encounter
--- OUTSIDE RECORDS SUMMARY | 2022-03-12 04:42 | XMS_ITS | Encounter Summary ---
:2000 Author Organization [facility] Address [address], [place] [address] Care Team Providers Name Role Phone Destiny Peralta MD Primary Care Provider [phone] Reason for Visit Reason Comments Patient Care Coordination Encounter Details Date Type Department Care Team Description 02/05/2014 Pt Care Coordination [facility] Destiny Peralta [address] [place] [address] [address] [facility] [phone] [place], [place] [address] (Wo rk) Social History [...] encounter Progress Notes Nicole Clemente RN - 02/05/2014 4:10 PM CDT Left message to call back. Nicole Clemente RN 02/05/2014, 4:10 PM IGN AGENT documented in this encounter Miscellaneous Notes Assessment & Plan Note - Nicole Clemente RN - 02/10/2014 4:59 PM CSTAssociated Problem(s): PT CARE COORDINATION - [facility] (Resolved 07/14/2014) Father is upset that he never knows what is going on with his son since he doesn't talk. Per father he clams up in his little shell. Father states that Aunchristina Purcell told him that he should see a psychiatrist and maybe get him on some medication. Father keeps stating that he is going through the steps.He is also nervous that its affecting the other kids in the household. The other kids noticing that he is getting away with things because Timo doesn't know how to react yet to his child. IGN AGENT documented in this encounter Plan of Treatment Not on filedocumented as of this encounter Visit Diagnoses Not on filedocumented in this encounter Care Teams Director Financial Analysis Relationship Specialty Start Date End Date Destiny Peralta MD PCP - General Pediatric Medicine 09/23/13 01/21/[address] [place] [id number] documented as of this encounter
--- OUTSIDE RECORDS SUMMARY | 2022-03-12 04:42 | XMS_ITS | Encounter Summary ---
:2000 Author Organization ? Address [address] [place] [address] Care Team Providers Name Role Phone Garfield Mock MD Primary Care Provider Unavailable Reason for Visit Reason Onset Date Comments CYST CANCEL APPOINTMENT 03/12/2021 Clinic Cancel Encounter Details Date Type Department Care Team Description 03/12/2021 Telemedicine [facility] Antonio Mosquera MD administrative purposes Dermatology [address] [facility] [address] (Primary Dx) [address] [facility] [address] [place], [place] [phone] Social History Tobacco Use Types Packs/Day Years Used Date Smoking Tobacco: Never Smokeless Tobacco: Never Alcohol Use Standard Drinks/Week Comments Yes 0 (1 standard drink = 0.6 oz pure alcoho l) Sex Assigned at Date Recorded Not on file documented as of this encounter Progress Notes Izabella Paige MD - 03/12/2021 1:30 PM CST Photos showed keloids, was able to reach him around his appt time. Will bring him in for in person visit instead since we will likely do procedure in office and didn't want to charge twice. He is agreeable to this plan. This appointment was cancelled by the clinic. PACKER documented in this encounter Plan of Treatment Not on filedocumented as of this encounter Visit Diagnoses Diagnosis Encounters for administrative purposes - Primary Encounters for unspecified administrativ e purpose documented in this encounter Care Teams Water Taxi Driver Relationship Specialty Start Date End Date Garfield Mock MD PCP - General Family Practice 08/24/15 08/12/21 documented as of this encounter
--- OUTSIDE RECORDS SUMMARY | 2022-03-12 04:42 | XMS_ITS | Encounter Summary ---
:2000 Author Organization [facility] Address [address] [place] [address] Care Team Providers Name Role Phone Garfield Mock MD Primary Care Provider Unavailable Reason for Referral Consult/Transfer Care (Routine) - Closed Specialty Diagnoses / Procedures Referred By Contact Refer red To Contact Diagnoses Snoring Witnessed episode of apnea [place] [address] [place], [place] [address] Referral ID Status Reason Start Date Expiration Date Visits Requ ested Visits Authorized [id number] Closed 09/11/2020 12/11/2021 1 1 Scheduling Instructions Your provider has recommended an appoint ment with [facility]. This is not a sleep study order and must first be re viewed by a sleep specialist to determine the next steps. The review process looks at multiple factors including your insurance requirements, personal health history, a nd [employer] guidelines. This referral will be reviewed within 1 business day and sent to scheduling for one of the following appointments: - Consultation/Office Visit with a Sleep Medicine Specialist - Consultation/Office Visit with an Inso mnia Specialist - In-Center Overnight Sleep Study - Portable/Home Sleep Test If you do not hear from our scheduling s taff within the next 7 days, please contact us at [phone]. Reason for Visit Reason Comments ROUTINE HEALTH MAINTENANCE ASTHMA Encounter Details Date Type Department Care Team Description 09/11/2020 Office Visit [facility] Michele Hernandez Ro utine health maintenance (Primary Dx); Practice MD Mild persistent asthma, unspecified whet her complicated; [address] [facility] [address] [facility] Snoring; [place], [place] Witness ed episode of apnea; [id number] Daytime somnolence [phone] Social History Tobacco Use Types Packs/Day Years Used Date Smoking Tobacco: Never Smokeless Tobacco: Never Alcohol Use Standard Drinks/Week Comments Yes 0 (1 standard drink = 0.6 oz pure alcoho l) Sex Assigned at Date Recorded Not on file documented as of this encounter Last Filed Vital Signs Vital Sign Reading Time Taken Comments Blood Pressure 117/87 09/11/2020 1:44 PM CDT Pulse 83 09/11/2020 1:44 PM CDT Temperature - - Respiratory Rate - - Oxygen Saturation - - Inhaled Oxygen Concentration - - Weight 104.8 kg (231 lb) 09/11/2020 1:44 PM CDT Height 175.8 cm (5' 9.2) 09/11/2020 1:44 PM CDT Body Mass Index 33.92 09/11/2020 1:44 PM CDT Body Mass Index Percentile 98.60 % 09/11/2020 1:44 PM CD T Growth Chart: [facility] (Boys, 2-20 Years) documented in this encounter Patient Instructions Patient InstructionsRadha Morris LPN - 09/11/2020 1:30 PM CDT Images from the original note were not included. ASTHMA START TAKING SINGULAIR 10 MG IN EVENING EVERY DAY XOPENEX INHALER USE IF NEEDED FOR COUGH TROUBLE BREATHING WHEEZING RECOMMEND TO SEE SLEEP DOCTOR OTHERWISE NORMAL EXAM FOLLOW UP IN 2 WEEKS It's been a pleasure seeing you today. Michele Hernandez MD 09/11/2020, 2:11 PM Sleep Apnea: Care Instructions Overview Sleep apnea means that you frequently stop breathing for 10 seconds or longer during sleep. It can be mild to severe, based on the number of times an hour that you stop breathing or have slowed breathing. Blocked or narrowed airways in your nose, mouth, or throat can cause sleep apnea. Your airway can become blocked when your throat muscles and tongue relax during sleep. You can help treat sleep apnea at home by making lifestyle changes. You also can use a CPAP breathing machine that keeps tissues in the throat from blocking your airway. Or your doctor may suggest thatyou use a breathing device while you sleep. It helps keep your airway open. This could be a device that you put in your mouth. In some cases, surgery may be needed to remove enlarged tissues in the throat. Follow-up care is a vanessa part of your treatment and safety. Be sure to make and go to all appointments, and call your doctor if you are having problems. It's also a good idea to know your test results and keep a list of the medicines you take. How can you care for yourself at home? ?? Lose weight, if needed. ?? Sleep on your side. It may help mild apnea. ?? Avoid alcohol and medicines such as sleeping pills, opioids, or sedatives before bed. ?? Don't smoke. If you need help quitting, talk to your doctor. ?? Prop up the head of your bed. ?? Treat breathing problems, such as a stuffy nose, that are caused by a cold or allergies. ?? Try a continuous positive airway pressure (CPAP) breathing machine if your doctor recommends it. ?? If CPAP doesn't work for you, ask your doctor if you can try other masks, settings, or breathing machines. ?? Try oral breathing devices or other nasal devices. ?? Talk to your doctor if your nose feels dry or bleeds, or if it gets runny or stuffy when you use a breathing machine. ?? Tell your doctor if you're sleepy during the day and it affects your daily life. Don't drive or operate machinery when you're drowsy. When should you call for help? Watch closely for changes in your health, and be sure to contact your doctor if: ? You still have sleep apnea even though you have made lifestyle changes. ? You are thinking of trying a device such as CPAP. ? You are having problems using a CPAP or similar machine. ? You are still sleepy during the day, and it affects your daily life. Where can you learn more? 1. Go to https://www.[employer].com/healthlibrary. 2. Enter J936 in the search box. Current as of: February 03, 2020?Content Version: 12.8 ?? [employer]. Care instructions adapted under license by your healthcare professional. If you have questions abouta medical condition or this instruction, always ask your healthcare professional. [employer] disclaims any warranty or liability for your use of this information. Well Visit, Ages 18 to 50: Care Instructions Overview Well visits can help you stay healthy. Your doctor has checked your overall health and may have suggested ways to take good care of yourself. Your doctor also may have recommended tests. At home, you can help prevent illness with healthy eating, regular exercise, and other steps. Follow-up care is a vanessa part of your treatment and safety. Be sure to make and go to all appointments, and call your doctor if you are having problems. It's also a good idea to know your test results and keep a list of the medicines you take. How can you care for yourself at home? ?? Get screening tests that you and your doctor decide on. Screening helps find diseases before any symptoms appear. ?? Eat healthy foods. Choose fruits, vegetables, whole grains, protein, and low- fat dairy foods. Limit fat, especially saturated fat. Reduce salt in your diet. ?? Limit alcohol. If you are a man, have no more than 2 drinks a day or 14 drinks a week. If you area woman, have no more than 1 drink a day or 7 drinks a week. ?? Get at least 30 minutes of physical activity on most days of the week. Walking is a good choice. You also may want to do other activities, such as running, swimming, cycling, or playing tennis or team sports. Discuss any changes in your exercise program with your doctor. ?? Reach and stay at a healthy weight. This will lower your risk for many problems, such as obesity,diabetes, heart disease, and high blood pressure. ?? Do not smoke or allow others to smoke around you. If you need help quitting, talk to your doctor about stop-smoking programs and medicines. These can increase your chances of quitting for good. ?? Care for your mental health. It is easy to get weighed down by worry and stress. Learn strategiesto manage stress, like deep breathing and mindfulness, and stay connected with your family and community. If you find you often feel sad or hopeless, talk with your doctor. Treatment can help. ?? Talk to your doctor about whether you have any risk factors for sexually transmitted infections (STIs). You can help prevent STIs if you wait to have sex with a new partner (or partners) until you've each been tested for STIs. It also helps if you use condoms (male or female condoms) and if you limit your sex partners to one person who only has sex with you. Vaccines are available for some STIs, such as HPV. ?? Use control if it's important to you to prevent . Talk with your doctor about the choices available and what might be best for you. ?? If you think you may have a problem with alcohol or drug use, talk to your doctor. This includes prescription medicines (such as amphetamines and opioids) and illegal drugs (such as cocaine and methamphetamine). Your doctor can help you figure out what type of treatment is best for you. ?? Protect your skin from too much sun. When you're outdoors from 10 a.m. to 4 p.m., stay in the shade or cover up with clothing and a hat with a wide brim. Wear sunglasses that block UV rays. Even when it's cloudy, put broad-spectrum sunscreen (SPF 30 or higher) on any exposed skin. ?? See a dentist one or two times a year for checkups and to have your teeth cleaned. ?? Wear a seat belt in the car. When should you call for help? Watch closely for changes in your health, and be sure to contact your doctor if you have any problems or symptoms that concern you. Where can you learn more? 1. Go to https://www.[employer].[place]/healthlibrary. 2. Enter P072 in the search box. Current as of: September 04, 2019?Content Version: 12.8 ?? SPARQCode. Care instructions adapted under license by your healthcare professional. If you have questions abouta medical condition or this instruction, always ask your healthcare professional. Healthwise, Incorporated disclaims any warranty or liability for your use of this information. documented in this encounter Progress Notes Michele Hernandez MD - 09/11/2020 1:30 PM CDT Routine Health Maintenance: Historical: Sue Ray is a 19 y.o. old male Chief Complaint Patient presents with ??? ROUTINE HEALTH MAINTENANCE ??? ASTHMA Current concerns: Asthma Follow-Up Do you take any prescription medication for this condition? Not taking What types of inhalers do you use? , needs new one. No flowsheet data found. Diet, fruits/ vegetables: 2-4 servings each day Present exercise habits: 30 minutes or more, >3-5 times per week Last PHQ-2 Score: No Value exists for the CHALK CUTTER: [id number] Smoke marijuana Daily To calm his nerves Snores very loud Does not feel rested in am Feels like taking day time naps Stop breathing while sleep and catches Him self ALL - See allergy list PMH - Mild persistent asthma Uses albuterol prn PSxH - None SH - S x never Marijuana - every day A x occasionally rum 1/2 cup (4 drinks) Once a week No other drugs Lives at home with mother and sister Not in school for now FH - F - asthma - blood clot to heart lung (not sure) M - lactose intolerance Observed: BP 117/87 (BP Location: Right Arm, BP Cuff Size: Regular) Pulse 83 Ht 5' 9.2 (1.758 m) Wt 231lb (104.8 kg) BMI 33.92 kg/m?? General: appears well, no acute distress, alert and oriented x3 HEENT: PERRLA, EOMI, nasal mucosa normal, MMM, Pharyngeal mucosa is normal NECK: supple soft without any lymphadenopathy LUNGS: Clear to auscultation bilaterally, no wheezes or rhonchi appreciated HEART: RRR, S1 S2 normal, no murmurs appreciated ABDOMEN: soft non tender non distended, positive bowel sounds NEURO: CN2-12 appears grossly normal, no significant motor or sensory deficits noted EXT: pedal pulses intact bilaterally, no pedal edema noted Assessment/Plan: 1. Routine health maintenance Patient counseled: -healthy diet -increasing physical activity -tobacco cessation -safe alcohol consumption -protection from UV light -sleep hygiene -stress management -safety belt use -bike/cycle helmet use -firearm storage 2. Mild persistent asthma, unspecified whether complicated (HRC) Worsening asthma. Counseled patient about asthma. Start Singulair 1 tablet a daily in the evening. Albuterol p.r.n.. Patient agreed. He will follow-up in see me in 3 weeks. - ASTHMA MANAGEMENT PLAN [AMP] - montelukast (SINGULAIR) 10 MG tablet; Take 1 Tablet by mouth every evening. Dispense: 90 Tablet; Refill: 3 - levalbuterol (XOPENEX HFA) 45 mcg/actuation inhaler; Inhale 1-2 Puffs every 4 hours as needed for Wheezing. Dispense: 1 Each; Refill: 0 3. Snoring 4. Witnessed episode of apnea 5. Daytime somnolence New complaint. Discussed with the patient about concerns for sleep apnea based on his presentation. Referred to Sleep Medicine. He agreed. - Sleep Services He will follow-up in see me in 2 weeks. Michele Hernandez MD 09/20/2020, 3:55 PM documented in this encounter Plan of Treatment Scheduled Referrals Name Type Priority Associated Diagnoses Order S [facility] Sleep Services Referral Routine Snoring Ordered: 09/11/2020 Witnessed episod e of apnea Daytime somnolence documented as of this encounter Visit Diagnoses Diagnosis Routine health maintenance - Primary Routine general medical examination at a health care facility Mild persistent asthma, unspecified whet her complicated (HRC) Snoring Other dyspnea and respiratory abnormalit y Witnessed episode of apnea Daytime somnolence documented in this encounter Care Teams Drying Supervisor Relationship Specialty Start Date End Date Garfield Mock MD PCP - General Family Practice 08/24/15 08/12/21 documented as of this encounter
--- OUTSIDE RECORDS SUMMARY | 2022-03-12 04:42 | XMS_ITS | Encounter Summary ---
:2001 Author Organization [facility] Address [address] [place] [address] Care Team Providers Name Role Phone Garfield Mock MD Primary Care Provider Unavailable Reason for Visit Reason Comments Hair/Scalp Problem Encounter Details Date Type Department Care Team Description 04/30/2020 Telemedicine [facility] [address] ne keloidalis Dermatology MD sheehan (Primary Dx) [address] [facility] [address] [facility] [place] [address] [phone] (Wo rk) Social History Tobacco Use Types Packs/Day Years Used Date Smoking Tobacco: Never Smokeless Tobacco: Never Alcohol Use Standard Drinks/Week Comments Not Asked 0 (1 standard drink = 0.6 oz pure alcoho l) Sex Assigned at Date Recorded Not on file documented as of this encounter Progress Notes Ping Gonzalez MD - 04/30/2020 1:00 PM CST Chief Complaint Patient presents with ??? Hair/Scalp Problem This visit was conducted via video. Location of clinician home. Location of patient home Billing based on: Complexity History of Present Illness: Sue Ray (--) is a 19 y.o. male here for evaluation of a rash on the posterior neck. This has been present 2 years. No pain, some pus. Past treatments include none. Past Medical History: Healthy. Medications: The patient has a current medication list which includes the following prescription(s): epinephrine. Allergies: The patient is allergic to fish-derived products and shellfish allergy. Physical Exam: General: Well appearing male in no acute distress, alert and oriented times three, normal affect. Skin: A focused skin exam was performed of the face, posterior neck. Notable findings include: - Crusted scarred papules on the posterior neck, hair is worn longer. Findings otherwise normal. Assessment and Plan: 1. Acne keloidalis nuchae, stable but chronic, not currently treated. Discussed with the patient that this is a common pattern of inflammation and scarring. Discussed that it is not caused by dirty clippers. Given robust inflammation will treat with topical fluocinonide solution used on a twice daily basis, reviewed risks of skin thinning and dyspigmentation. In in addition will treat with oral doxycycline 100 mg taken twice daily for 30 days, risks of stomach upset and photosensitivity were reviewed. If this fails to produce improvement encouraged him to return to our clinic as there are myriad treatment options with this condition, asked him to try and keep his hair longer as shorter hair styles tend to exacerbate the condition. The patient is in agreement with this plan, questions were answered. Orders Placed This Encounter ??? fluocinonide (LIDEX) 0.05 % external solution ??? doxycycline monohydrate (MONODOX) 100 MG capsule PRINT ASSEMBLER documented in this encounter Plan of Treatment Not on filedocumented as of this encounter Visit Diagnoses Diagnosis Acne keloidalis nuchae - Primary Other acne documented in this encounter Care Teams Material Crew Supervisor Relationship Specialty Start Date End Date Garfield Mock MD PCP - General Family Practice 08/24/15 08/12/21 documented as of this encounter
--- OUTSIDE RECORDS SUMMARY | 2022-03-12 04:42 | XMS_ITS | Encounter Summary ---
:2001 Author Organization [facility] Address [address] [place] [address] Care Team Providers Name Role Phone Michele Hernandez MD Primary Care Provider Encounter Details Date Type Department Care Team Description 02/18/2015 Scanned History External to External, Provid er SCHOOL - PARENTAL No address CONSENT / [place] [address] Social History Tobacco Use Types Packs/Day Years [...] on filedocumented in this encounter Care Teams Milieu Coordinator Relationship Specialty Start Date End Date Michele Hernandez MD PCP - General Family Practice 08/13/21 [address] [address] [place], [place] [id number] documented as of this encounter
--- OUTSIDE RECORDS SUMMARY | 2022-03-12 04:42 | XMS_ITS | Encounter Summary ---
:2001 Author Organization [facility] Address [address] [place] [address] Care Team Providers Name Role Phone Michele Hernandez MD Primary Care Provider Encounter Details Date Type Department Care Team Description 10/02/2013 Correspondence External to External, Provid er HEALTH EXAM [place]M [place] [address] Social History Tobacco Use Types Packs/Day Years [...] on filedocumented in this encounter Care Teams Film Technician Relationship Specialty Start Date End Date Michele Hernandez MD PCP - General Family Practice 08/13/21 [address] [place], [place] [id number] documented as of this encounter
--- OUTSIDE RECORDS SUMMARY | 2022-03-12 04:42 | XMS_ITS | Encounter Summary ---
:2000 Author Organization [facility] Address [address] [place] [address] Care Team Providers Name Role Phone Michele Hernandez MD Primary Care Provider Encounter Details Date Type Department Care Team Description 02/18/2015 Scanned History External to External, [facility] er SCHOOL [place] [address] Social History Tobacco Use Types Packs/Day Years [...] on filedocumented in this encounter Care Teams Brand Ambassador Relationship Specialty Start Date End Date Michele Hernandez MD PCP - General Family Practice 08/13/21 [address] [place] [address] documented as of this encounter
--- OUTSIDE RECORDS SUMMARY | 2022-03-12 04:42 | XMS_ITS | Encounter Summary ---
:2001 Author Organization [facility] Address [address] [place] [address] Care Team Providers Name Role Phone Destiny Peralta MD Primary Care Provider Reason for Visit Reason Comments Patient Care Coordination Encounter Details Date Type Department Care Team Description 11/18/2013 Pt Care Coordination [facility] Destiny Peralta [address] [place] [address] [address] [facility] [phone] [place], [place] [address] (Wo rk) Social History [...] encounter Progress Notes Nicole Clemente RN - 12/17/2013 4:29 PM CDT Left message to call back. Nicole Clemente RN 12/17/2013, 4:29 PM Alejandra Burden - 12/17/2013 4:17 PM CDT Dad called back Nicole Clemente RN - 12/17/2013 4:00 PM CDT Left message to call back. Nicole Clemente RN 12/17/2013, 4:00 PM Nicole Clemente RN - 12/11/2013 3:58 PM CDT Left message to call back. Nicole Clemente RN 12/11/2013, 3:59 PM Nicole Clemente RN - 11/19/2013 8:45 AM CDT Father states he will have Eduyon call nurse when he gets home from work. Nicole Clemente RN 11/19/2013, 9:03 AM Nicole Clemente RN - 11/18/2013 3:54 PM CDT Left message to call back. Nicole Clemente RN 11/18/2013, 3:54 PM documented in this encounter Miscellaneous Notes Assessment & Plan Note - Nicole Clemente RN - 11/19/2013 9:02 AM CDTAssociated Problem(s): PT CARE COORDINATION - HEALTH HALFWAY (Resolved 07/14/2014) Father states that he has a hard time getting Jean-Claudeiyon into therapy since his work schedule will not allow it. Sue is riding his bike a lot with his sister. Per father he has not asked him if he can hang out with any friends during the day. documented in this encounter Plan of Treatment Not on filedocumented as of this encounter Visit Diagnoses Not on filedocumented in this encounter Care Teams Crusher Tender Relationship Specialty Start Date End Date Destiny Peralta MD PCP - General Pediatric Medicine 09/23/13 01/21/15 [address] [place] [address] documented as of this encounter
--- OUTSIDE RECORDS SUMMARY | 2022-03-12 04:42 | XMS_ITS | Encounter Summary ---
:2001 Author Organization [facility] Address [address] [place] [address] Care Team Providers Name Role Phone Destiny Peralta MD Primary Care Provider [phone] Reason for Visit Reason Comments SHOT,FLU Encounter Details Date Type Department Care Team Description 02/25/2014 Nursing Visit [facility] Dough Catcher/Lio/Yusuf Georges Need for prophylactic Department Nursing vaccination and [address] [place] [address] [place] influenza (Primary Dx) [phone] [id number] Social History Tobacco Use Types Packs/Day Years Used Date Smoking Tobacco: Passive Smoke Exposure - Never Smoker Comments: no smokers at home 11/13,matern all grandmother's home Alcohol Use Standard Drinks/Week Comments Not Asked 0 (1 standard drink = 0.6 oz pure alcoho l) Sex Assigned at Date Recorded Not on file documented as of this encounter Progress Notes Johanna Dent LPN - 02/25/2014 3:03 PM CST Flu shot given, see smartform. OUS EXCEPTIONALITIES TEACHER documented in this encounter Plan of Treatment Not on filedocumented as of this encounter Visit Diagnoses Diagnosis Need for prophylactic vaccination and in oculation against influenza - Primary documented in this encounter Care Teams City Sanitarian Relationship Specialty Start Date End Date Destiny Peralta MD PCP - General Pediatric Medicine 09/23/13 01/21/[address] [place] [address] documented as of this encounter
--- OUTSIDE RECORDS SUMMARY | 2022-03-12 04:42 | XMS_ITS | Encounter Summary ---
:2000 Author Organization [employer] Address [address] [place] [address] Care Team Providers Name Role Phone Destiny Peralta MD Primary Care Provider [phone] Reason for Visit Reason Comments WELL CHILD EXAM Allergies Consult/Transfer Care (Routine) - Closed Specialty Diagnoses / Procedures Referred By Contact Refer red To Contact Destiny Peralta MD [address] [place] [address] Referral ID Status Reason Start Date Expiration Date Visits Requ ested Visits Authorized [id number] Closed 10/08/2013 01/07/2015 1 1 Encounter Details Date Type Department Care Team Description 11/26/2014 Office Visit Anna Chavis Nish, Routine inf ant or child health check (Primary Dx); Practice Garfield White MD Asthma with acute exacerbation, unspecif ied asthma severity; [address] Allergic rhinitis due to oth er allergen; [place] [address] MA[address] STOP [id number] Other chronic allergic conjunctivitis [phone] [place] [address] Social History Tobacco Use Types Packs/Day Years Used Date Smoking Tobacco: Never Smokeless Tobacco: Never Alcohol Use Standard Drinks/Week Comments Not Asked 0 (1 standard drink = 0.6 oz pure alcoho l) Sex Assigned at Date Recorded Not on file documented as of this encounter Last Filed Vital Signs Vital Sign Reading Time Taken Comments Blood Pressure 100/61 11/26/2014 3:41 PM CDT Pulse 78 11/26/2014 3:41 PM CDT Temperature 36.2 ??C (97.1 ??F) 11/26/2014 3:41 PM CDT Respiratory Rate - - Oxygen Saturation - - Inhaled Oxygen Concentration - - Weight 61.3 kg (135 lb 3.2 oz) 11/26/2014 3:41 PM CDT Height 157.5 cm (5' 2) 11/26/2014 3:41 PM CDT Body Mass Index 24.73 11/26/2014 3:41 PM CDT Body Mass Index Percentile 94.33 % 11/26/2014 3:41 PM CD T Growth Chart: [facility][NOTE 3] (Boys, 2-20 Years) documented in this encounter Patient Instructions Patient InstructionsEileen Martinez LPN - 11/26/2014 3:40 PM CDT It has been a pleasure taking care of your child today. A dentist appointment each year is important for your child's health. Your child's insurance may payfor this. If you don't know where to take your child to see the dentist, check your child's insurance card or call [phone] for help. 1. Refill on meds sent to pharmacy electronically 2. Use inhalers as needed. See Asthma plan 3. Deep breathing exercises : please do 3 deep breaths every 2-3 hours to strengthen your lungs. Make your hand into a tunnel and place over mouth to increase resistance as you breathe. 4. [place] teeth twice daily. Floss 2-3 times a week. 5. Exercise daily: 20 pushups, 20 situps and 20 minutes jogging or biking. 13-14 Year Well Adolescent We would like to see [facility] every other year. If there are any problems before that time, don???t hesitate to call the clinic during business hours. Otherwise, you can call our Careline at [phone] or for 24 hour service. Development ?? Your adolescent may have questions or concerns about puberty and sexual health. ?? Talk about relationships, sex, and values. ?? Friendships will become more important. Peer pressure may begin or continue. ?? Limit your adolescent to 1 to 2 hours of quality screen time each day, according to the [place] [employer] Pediatric[employer] (AAP). Screen time includes [...] instead of sports drinks. Exercise ?? The [place] Heart Association recommends adolescents get 60 minutes [...] cleanings and checkups. Thank you for choosing [email or web address] documented in this encounter Progress Notes Garfield Mock MD - 11/26/2014 3:40 PM CDT Montse Ray is a 14 y.o. male who presents accompanied by his mother for routine child development director. Parental/Patient Concerns 1. Allergies and asthma- many allergies Uses inhalers as needed. flovent only used when symptoms are occurring. Has been off all meds since 05/2014 due to meds being left with dad and now he is living with mom. 2. Was to get HPV vaccine per mom but patient was physically resisting the shot so it was deferred. SCHOOL Name: [employer] Grade: 8th Success: Yes Sports/Recreational Activities Sports: baseball/softball and football Exercise: adequate Cardiovascular Risk: none Extracurricular Activities: Sports Recreation/Hobbies/TV: Sports I have reviewed and updated the family history. Daily Activities Nutrition: well balanced and varied diet, adequate milk intake Sleep: stays up late Dental Care: brushes daily date of last dental visit > 6 months Developmental Assessment Family/Relationships/Community Current Living Situation: lives with parent(s) Family: no problems identified Peer: sociable Abuse: absent Mental Health Issues: None Active Support/Resources: Family/Friends and [place] Environmental Risks Tuberculosis Screening: Not indicated Review of Systems Detailed review of systems including constitutional, skin, eyes, ENT, resp, CVS, GI & , revealed no abnormality except as detailed above. Required Testing Hemoglobin Prior Hgb: HGB (g/dl) Date Value 02/23/2004 12.4 Hemoglobin test required?: No. Kidney/Bladder Screening: Prior Urine: No results found for: ULEUK Urinalysis required?: No Objective BP 100/61 mmHg Pulse 78 Temp(Src) 97.1 ??F (36.2 ??C) Ht 5' 2 (1.575 m) Wt 135 lb 3.2 oz (61.326 kg) BMI 24.72 kg/m2 Estimated body mass index is 24.72 kg/(m^2) as calculated from the following: Height as of this encounter: 5' 2 (1.575 m). Weight as of this encounter: 135 lb 3.2 oz (61.326 kg). Hearing Screening 125Hz 250Hz 500Hz 1000Hz 2000Hz 4000Hz 8000Hz Right ear: 25 40 20 20 Left ear: 40 25 20 20 Normal Abnormal GENERAL X: male teen HEENT Head X Eyes/Nose X Ears X Mouth/Pharynx X NECK X LYMPHATICS X LUNGS X CV X ABDOMEN X Patient refused MS X NEURO X SKIN X Vision Objective exam completed. No problems found. and Subjective assessment. No problems found Visual Acuity Screening performed and documented in nurse's note. Hearing Objective exam completed. No problems found. and Subjective assessment. No problems found Audiogram passed. Toi Staging Declined by patient Assessment Healthy young adolescent. ICD-9-CM 1. Routine or child health check V20.2 42281 PURE TONE HEARING TEST, AIR 36333 SCR TEST VISUAL ACUITY ARUN LILA CMPL EARLY PRD SCREEN DX&TX SRVC (S0302) CANCELED: UA MICRO IF 2. Asthma with acute exacerbation, unspecified asthma severity 493.92 ALBUterol sulfate hfa 108 (90 BASE) MCG/ACT inhaler fluticasone (FLOVENT HFA) 44 MCG/ACT inhaler montelukast (SINGULAIR) 5 MG chewable tablet 3. Allergic rhinitis due to other allergen 477.8 fluticasone (FLONASE) 50 MCG/ACT nasal solution montelukast (SINGULAIR) 5 MG chewable tablet 4. Other chronic allergic conjunctivitis 372.14 montelukast (SINGULAIR) 5 MG chewable tablet Plan Per orders and patient instructions. Counseling Immunizations: see above, patient refused. Social: peer pressure Parenting: increased autonomy in decision making Nutrition: age specific nutritional needs and Counseling about nutrition provided to patient and/or parent Play and communication: organized sports/regular exercise and appropriate use of TV/video games (total Screen Time) Health: sexual exploration, Counseling about physical activity provided to patient and/or parent Dental: Reinforced benefits of daily dental care. Emphasized need for annual dental exam by a licensed dentist Safety: no safety issues identified. Sexuality: the following issues were discussed: treating others with respect Follow-up Next preventive health care visit in 2 years Patient Instructions It has been a pleasure taking care of your child today. A dentist appointment each year is important for your child's health. Your child's insurance may payfor this. If you don't know where to take your child to see the dentist, check your child's insurance card or call [phone] for help. 1. Refill on meds sent to pharmacy electronically 2. Use inhalers as needed. See Asthma plan 3. Deep breathing exercises : please do 3 deep breaths every 2-3 hours to strengthen your lungs. Make your hand into a tunnel and place over mouth to increase resistance as you breathe. 4. [place] teeth twice daily. Floss 2-3 times a week. 5. Exercise daily: 20 pushups, 20 situps and 20 minutes jogging or biking. 13-14 Year Well Adolescent We would like to see Sue back every other year. If there are any problems before that time, don???t hesitate to call the clinic during business hours. Otherwise, you can call our Careline at [phone] or for 24 hour service. Development ?? Your adolescent may have questions or concerns about puberty and sexual health. ?? Talk about relationships, sex, and values. ?? Friendships will become more important. Peer pressure may begin or continue. ?? Limit your adolescent to 1 to 2 hours of quality screen time each day, according to the [place] [employer] Pediatrics (AAP). Screen time includes [...] instead of sports drinks. Exercise ?? The [place] Heart Association recommends adolescents get 60 minutes [...] cleanings and checkups. Thank you for choosing [facility] Garfield Mock MD documented in this encounter Plan of Treatment Not on filedocumented as of this encounter Visit Diagnoses Diagnosis Routine infant or child health check - P rimary Asthma with acute exacerbation, unspecif ied asthma severity (HRC) Allergic rhinitis due to other allergen Other chronic allergic conjunctivitis documented in this encounter Care Teams Mc Kay Stitcher Relationship Specialty Start Date End Date Destiny Peralta MD PCP - General Pediatric Medicine 09/23/13 01/21/15 [address] [place] [address] documented as of this encounter
--- OUTSIDE RECORDS SUMMARY | 2022-03-12 04:42 | XMS_ITS | Clinical Summary ---
:2000 Author Organization [employer] Address [address] [place] [address] Care Team Providers Name Role Phone Michele Hernandez MD Primary Care Provider Source Comments You are receiving this document as you are listed as the primary care provider,follow-up provider, or the patient has been referred to you for consultation.This is in compliance with the Medicare and Medicaid EHR Incentive Program,which states Providers who transition their patient to another setting of careor provider of care or refers their patient to another provider of care shouldprovide summarycare record for each transition of care or referral. [employer] Allergies Active Allergy Reactions Severity Noted Date Comments Fish-Derived Products Hives High 02/24/2016 Shellfish Allergy Other, see comments 2004 Swe lling ,rash,hives Medications Medication Sig Dispensed Refills Start Date End Date Status EPINEPHrine Inject 0.3 mL 2 Each 1 09/24/2013 Act ralph (EPIPEN) 0.3 intramuscularly once MG/0.3ML injection as needed for up to 1 dose. into thigh as directed for and/or potential for an allergic reaction fluocinonide Apply topically two 60 mL 1 04/30/2020 Active (LIDEX) 0.05 % times a day. external solution levalbuterol Inhale 1-2 Puffs 1 Each 0 12/15/2021 Active (XOPENEX HFA) 45 every 4 hours as mcg/actuation needed for Wheezing. inhalerIndications : Mild persistent asthma, unspecified whether complicated (HRC) doxycycline Take 1 Capsule (100 60 Capsule 0 12/15/2021 Active monohydrate mg) by mouth two (MONODOX) 100 MG times a day. 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 If you have any questions or concerns pl ease contact: Your Care Team at [facility] tment :[phone] Primary Care Provider: Destiny marti MD RN Coordinator: Nicole VASQUES CareLine at [phone] or after hours and on weekends. Care Coordination (Community Resources, Specialists, Home Health Agency, Caregiver, Supply Vendor, Platform Man) Contact Name KRISTI Obtained? Phone Number Role in Care Comments Action Plan Sue's Chosen Goal: To increase communication with his aleah chan Detailed Action Steps to Achieve Goal & Who Will Complete: Sue will get his point sheet signed at school by every teacher every day for the next 4 weeks. Sue point sheet will indicate yes i nstead of a no for the next 4 weeks Sue will bring point sheet back fro m school for father to review daily. Sue will talk to his father one grzegorz e a week about what Nola needs or what Nola wants. Nola will talk to his father every before he goes to his mom's house and after he gets back from his mom's house. He will talk to his father on monday's a bout what Nola needs or wants when he is home at his father's house for the weekend. Patient wants to try goal for at least 2 to 3 weeks. Confidence Level: On a scale of 1-10, Edulivier's confidenc e level to achieve this goal is 8 or 9 Date Goal Achieved Additional Patient Instructions 1. If you need anything prior to the nex t scheduled telephone visit please call Nicole or Caryn at [phone] Opt. 7 Follow-Up Nicole will follow-up with Sue and David ely by phone on July 14, 2014. Last Assessment & Plan: Per father he has not had sue for t he past 2 weeks. His mother has not returned him. They are going back to court for this on 06/25/2014. Father states this is more of a civil matter. Will continue same goals and check up in 3 weeks. Nciole Clemente RN 06/24/2014, 4:41 PM Encounters Date Type Specialty Care Team Description 12/15/2021 Telemedicine Family Medicine Michele Hernandez, Acne k solitario sheehan (Primary Dx); Mild persistent asthma, unspecified whether complicated from Last 3 Months Immunizations Name Administration Dates Next Due 4vHPV (Gardasil) 10/08/2013 DTaP 05/17/2007, 04/14/2003, 05/28/2002, 03/11/2002, 01/18/2002 Flu Vac (6-35 mo) 04/16/2002, 03/11/2002 Hib (PedvaxHIB) 04/14/2003 Hib/HBV 05/28/2002, 03/11/2002, 01/18/2002 IPV (Polio) 05/17/2007, 05/28/2002, 03/11/2002, 01/18/2002 Influenza LAIV (Nasal, 2-49 yrs) 02/25/2014 MCV4 (Menveo) 10/08/2013 MMR 12/24/2002 MMRV (ProQuad) 12/06/2005 Pneumococcal 7, PED 12/24/2002 Tdap 10/08/2013 Varicella 12/24/2002 Family History Medical History Relation Name Comments Anxiety Father Asthma Father Bipolar Disorder Father Other Mother lactose intelera nce Other Maternal Grandmother lazy eye ADHD Other 1 dad's nephews Kidney Disorder Other 2 kidney disorder Migraines Other 3 aunt Obesity Other 4 fathers side Schizophrenia Paternal Grandmother Relation Name Status Comments Father Alive Mother Alive Maternal Grandmother Other 1 Other 2 Other 3 Other 4 Paternal Grandmother Sister 1 Alive Sister 2 Alive Social History Tobacco Use Types Packs/Day Years Used Date Smoking Tobacco: Never Smokeless Tobacco: Never Alcohol Use Standard Drinks/Week Comments Yes 0 (1 standard drink = 0.6 oz pure alcoho l) Sex Assigned at Date Recorded Not on file Last Filed Vital Signs Vital Sign Reading Time Taken Comments Blood Pressure 117/87 09/11/2020 1:44 PM CDT Pulse 83 09/11/2020 1:44 PM CDT Temperature 36.2 ??C (97.2 ??F) 02/24/2016 3:04 PM DRAW FRAME TENDER Respiratory Rate 19 10/08/2013 9:27 AM CDT Oxygen Saturation 100% 10/08/2013 9:27 AM CDT Inhaled Oxygen Concentration - - Weight 94.3 kg (208 lb) 12/15/2021 11:35 AM CDT Height 175.3 cm (5' 9) 12/15/2021 11:35 AM CDT Body Mass Index 30.72 12/15/2021 11:35 AM CDT Plan of Treatment Health Maintenance Due Date Last Done Comments Hep C Screening (Preventive 2001 Services) COVID-19 Vaccine (#1) 05/27/2002 Asthma ACT 2005 Pneumococcal (1 - PCV) 11/25/2007 12/24/2002 HPV Vaccine (2 - Male 04/10/2014 10/08/2013 2-dose series) HIV Screening (Preventive 2017 Services) Adult Preventive Visit 09/11/2021 09/11/2020, 02/24/2016, 11/26/2014, Additional history exists Influenza (#1) 2021 02/25/2014, 04/16/2002, 03/11/2002 DTaP/Tdap/Td (7 - Tdap) 10/09/2023 10/08/2013, 05/17/2007, 04/14/2003, Additional history exists Zoster/Shingles (1 of 2) 11/25/2051 HepB Completed 05/28/2002, 03/11/2002, 01/18/2002 Hib Completed 04/14/2003, 05/28/2002, 03/11/2002, Additional history exists Varicella Completed 12/06/2005, 12/24/2002 IPV (Polio) Completed 05/17/2007, 05/28/2002, 03/11/2002, Additional history exists MCV4 Aged Out 10/08/2013 No longer eligib le based on patient 's age to complete this topic HepA Aged Out No longer eligib le based on patient 's age to complete this topic Insurance Payer Benefit Plan / Subscriber ID Effective Dates Phone Addre ss Type Group [employer] SELF INSURED [id number] 2020-Present Commercial Care [employer] Project Manager Relationship Specialty Start Date End Date Michele Hernandez MD PCP - General Family Practice 08/13/21 [address] [place], [place] [id number]
--- OUTSIDE RECORDS SUMMARY | 2022-03-12 04:42 | XMS_ITS | Encounter Summary ---
:2000 Author Organization [employer] Address [address] [place] [address] Care Team Providers Name Role Phone Garfield Mock MD Primary Care Provider Unavailable Reason for Visit Reason Comments Keloid On a tattoo Encounter Details Date Type Department Care Team Description 07/19/2021 Telemedicine [facility] [address] loid (Primary Dx) Pediatrics [address] [place] [address]. [place] [address] [phone] (Wo rk) Social History Tobacco Use Types Packs/Day Years Used Date Smoking Tobacco: Never Smokeless Tobacco: Never Alcohol Use Standard Drinks/Week Comments Yes 0 (1 standard drink = 0.6 oz pure alcoho l) Sex Assigned at Date Recorded Not on file documented as of this encounter Progress Notes Sumanth Prater MD - 07/19/2021 7:45 AM CDT General Pediatrics Telemedicine Video Visit Patient Name: Sue Ray Date of : 2000 Date of Visit: 07/19/2021 PCP: Garfield Mock MD Chief complaint: Keloid (On a tattoo) History of Present Illness: Sue Ray is a 20 y.o. male who is present for the visit. History is obtained from the Patient. Tattoo 6 mo ago middle of chest - bumps started to occur 2 months later. Have not changed, mod pruritic. Has had tattoos on other areas of his body without any complications Medications: Reviewed Allergies: is allergic to fish-derived products and shellfish allergy. Family/Social History: Objective: There were no vitals taken for this visit. General: Appears alert. LUNGS: Normal respiratory effort, breathing room air. Photos in chart from March, patient states that the appearance has not changed. Multiple skin protuberances along the tattoo lines consistent with keloids Assessment/Plan: 1. Keloid Recommended make an appointment in Dermatology to discuss treatment options. First step most likely would be triamcinolone injections No orders of the defined types were placed in this encounter. Reviewed symptomatic care. Acetaminophen or Ibuprofen prn discomfort or fever. RTC prn worse or not improved. This visit was conducted via secure video. Location of clinician clinic. Location of patient home. Billing based on: Complexity This visit was a telehealth visit and was performed via 2-way audio-video. Photos reviewed in chart,if available. Sumanth Prater MD Pediatrics [facility] documented in this encounter Plan of Treatment Not on filedocumented as of this encounter Visit Diagnoses Diagnosis Keloid - Primary Keloid scar documented in this encounter Care Teams Carpet Tile Layer Relationship Specialty Start Date End Date Garfield Mock MD PCP - General Family Practice 08/24/15 08/12/21 documented as of this encounter
--- OUTSIDE RECORDS SUMMARY | 2022-03-12 04:42 | XMS_ITS | Encounter Summary ---
:2000 Author Organization [employer] Address [address] [place] [address] Care Team Providers Name Role Phone No Primary/Referring, Phy Primary Care Provider Unavailable Reason for Visit Reason Comments IMMUNIZATIONS Encounter Details Date Type Department Care Team Description 01/22/2015 Telephone [facility] Unassigned, Provider IMMUNIZATIONS [address] [place] [address] [place] [address] Social History Tobacco Use Types Packs/Day Years Used Date Smoking Tobacco: Never Smokeless Tobacco: Never Alcohol Use Standard Drinks/Week Comments Not Asked 0 (1 standard drink = 0.6 oz pure alcoho l) Sex Assigned at Date Recorded Not on file documented as of this encounter Nursing Notes Joelle Granado RN - 01/22/2015 9:14 AM CDT Ok to schedule on nurse schedule today. Joelle Granado RN 01/22/2015, 9:14 AM Molly Cobb - 01/22/2015 8:34 AM CDT Patient requesting appointment for: Today Symptoms: Mom would like to bring pt in today or tomorrow at [facility] to see a nurse to get HPV- 2nd dose. Molly Cobb documented in this encounter Plan of Treatment Not on filedocumented as of this encounter Visit Diagnoses Not on filedocumented in this encounter Care Teams Electronic Assembler Group Leader Relationship Specialty Start Date End Date No Primary/Referring, Phy PCP - General 01/22/15 documented as of this encounter
--- OUTSIDE RECORDS SUMMARY | 2022-03-12 04:42 | XMS_ITS | Encounter Summary ---
:2000 Author Organization [employer] Address [address], [place] [address] Care Team Providers Name Role Phone Destiny Peralta MD Primary Care Provider [phone] Reason for Visit Reason Onset Date Comments APPOINTMENT REQUEST 02/05/2014 Encounter Details Date Type Department Care Team Description 02/05/2014 Telephone [facility] Unassigned, APPO INTMENT REQUEST Behavioral Peds Provider [facility] [place] [address] Social History Tobacco Use Types Packs/Day Years Used Date Smoking Tobacco: Passive Smoke Exposure - Never Smoker Comments: no smokers at home 11/13,matern all grandmother's home Alcohol Use Standard Drinks/Week Comments Not Asked 0 (1 standard drink = 0.6 oz pure alcoho l) Sex Assigned at Date Recorded Not on file documented as of this encounter Nursing Notes Mirella Gallegos - 02/11/2014 4:08 PM CST Per instruction from Karen Velazquez the following forms were sent: Developmental/Behavioral Questionnaire Teacher/School Questionnaire 2 Teacher Taylor's/ 2 Parent Taylor's 2 TRF's 1 YSF And 1 KRISTI for school/IEP records Per Staff Message Trace Purcell will be sending CBCLs thru inter-office Pt's father informed forms were being sent and we cannot schedule until all forms are returned Address verified. Mirella Rm ING ROD MARKER James Gallegosssrudy Patel - 02/11/2014 12:52 PM CST Looks like pt has intake done 04/16/[address] Purcell so no new intake needed Please advise which forms should be sent Mirella Jorge Rm ING ROD MARKER Raisa Hadley - 02/05/2014 2:55 PM CDT Talked to father, he will call back, he didn't have time to answer any questions at this time. Torrie German - 02/05/2014 10:43 AM CDT Tmio, father, is calling to request initial appt with developmental pediatrics. He was given our information by Trace Purcell in the dept at [facility]. He states pt struggles with multiple issues including depression, anxiety, interruptive behaviors. Currently being seen with Behavioral Health. [employer] documented in this encounter Plan of Treatment Not on filedocumented as of this encounter Visit Diagnoses Not on filedocumented in this encounter Care Teams Crane Man Relationship Specialty Start Date End Date Destiny Peralta MD PCP - General Pediatric Medicine 09/23/13 01/21/15 [address] [place] [address] documented as of this encounter
--- OUTSIDE RECORDS SUMMARY | 2022-03-12 04:42 | XMS_ITS | Encounter Summary ---
:2001 Author Organization [facility] Address [address] [place] [address] Care Team Providers Name Role Phone Destiny Peralta MD Primary Care Provider [phone] Reason for Visit Reason Onset Date Comments Refill 07/02/2014 Encounter Details Date Type Department Care Team Description 07/02/2014 Refill [facility] 401 Allergy Randall Milan MD Refill Clinic 401 [facility] [place] [address] Social History Tobacco Use Types Packs/Day Years Used Date Smoking Tobacco: Passive Smoke Exposure - Never Smoker Comments: no smokers at home 11/13,matern all grandmother's home Alcohol Use Standard Drinks/Week Comments Not Asked 0 (1 standard drink = 0.6 oz pure alcoho l) Sex Assigned at Date Recorded Not on file documented as of this encounter Nursing Notes Evelyn Marlow RN - 07/02/2014 3:13 PM CDT Duplicate encounter, see 07/02/14 refill request. Evelyn Marlow RN 07/02/2014, 3:13 PM Batsheva Clayton - 07/02/2014 8:40 AM CDT Last refilled: 04/01/13 Qty of last refill: 90 documented in this encounter Plan of Treatment Not on filedocumented as of this encounter Visit Diagnoses Diagnosis Allergic rhinitis due to other allergen Other chronic allergic conjunctivitis Asthma with acute exacerbation, unspecif ied asthma severity (HRC) documented in this encounter Care Teams Eyewear Manufacturing Tech Relationship Specialty Start Date End Date Destiny Peralta MD PCP - General Pediatric Medicine 09/23/13 01/21/15 [address] [place] [address] documented as of this encounter
--- OUTSIDE RECORDS SUMMARY | 2022-03-12 04:42 | XMS_ITS | Encounter Summary ---
:2001 Author Organization [employer] Address [address], [place] [address] Care Team Providers Name Role Phone Destiny Peralta MD Primary Care Provider [phone] Reason for Visit Reason Onset Date Comments Refill 07/14/2014 Ventolin Encounter Details Date Type Department Care Team Description 07/14/2014 Refill [facility] 401 Allergy And Asthm a Refill (Ventolin) [facility] Specialists, Provider 401 [facility] [place] [address] Social History Tobacco Use Types Packs/Day Years Used Date Smoking Tobacco: Passive Smoke Exposure - Never Smoker Comments: no smokers at home 11/13,matern all grandmother's home Alcohol Use Standard Drinks/Week Comments Not Asked 0 (1 standard drink = 0.6 oz pure alcoho l) Sex Assigned at Date Recorded Not on file documented as of this encounter Nursing Notes Alma Reece RN - 07/14/2014 3:44 PM CDT Refilled per standing orders. Alma Reece R.N. Interface, Out Surescripts Prov Query - 07/14/2014 12:45 PM CDT ALBUterol sulfate hfa 108 (90 BASE) MCG/ACT inhaler - REFILL: 3 months - PROTOCOL: Beta Agonists - RATIONALE: This refill should last until the patient is due for an office visit. - LAST QUALIFYING VISIT IN PEDIATRICS: 09/24/2013 - NEXT SCHEDULED VISIT: None - LAST REFILLED ON: 09/24/2013, QTY: 18, Refills: 3, Sig: inhale 2 puffs by mouth every 4 hours as needed for wheezing (coughing). (unchanged) Powered by [employer], Reference: [id number], 07/14/2014 12:45:47 PM CDT, Pool: TAMMY REFILL RN ([id number]) Alee Dominguez RN - 07/14/2014 12:43 PM CDT Patient's last appointment with MD was 02/22/2013. Next office visit recommended in 3 months. Appointment needed? Yes, if continues with hired hand as MD has retired and would need new hired hand. Treatment plan reviewed and medication requested recommended by MD? Yes Last refill 09/24/2013 by pt's PCP. Appropriate time interval for refill request? No. Refill forwarded to PC as they were last prescribing MD. Alee Dominguez RN 12:43 PM Jose Hull - 07/14/2014 12:20 PM CDT Ventolin HFA INH w/dos ctr 200 puffs Inhale 2 puffs by mouth every 6 hours as needed documented in this encounter Plan of Treatment Not on filedocumented as of this encounter Visit Diagnoses Diagnosis Asthma with acute exacerbation, unspecif ied asthma severity (HRC) documented in this encounter Care Teams Human Resources Generalist Relationship Specialty Start Date End Date Destiny Peralta MD PCP - General Pediatric Medicine 09/23/13 01/21/15 [address] [place] [address] documented as of this encounter
--- OUTSIDE RECORDS SUMMARY | 2022-03-12 04:42 | XMS_ITS | Encounter Summary ---
:2001 Author Organization [employer] Address [address] [place] [address] Care Team Providers Name Role Phone Destiny Peralta MD Primary Care Provider [phone] Reason for Visit Reason Comments Refill Encounter Details Date Type Department Care Team Description 07/02/2014 [facility] 401 Adrien Milan MD Refill Allergy Clinic 401 [facility] [place] [address] Social History Tobacco Use Types Packs/Day Years Used Date Smoking Tobacco: Passive Smoke Exposure - Never Smoker Comments: no smokers at home 11/13,matern all grandmother's home Alcohol Use Standard Drinks/Week Comments Not Asked 0 (1 standard drink = 0.6 oz pure alcoho l) Sex Assigned at Date Recorded Not on file documented as of this encounter Nursing Notes Evelyn Marlow RN - 07/02/2014 3:15 PM CDT Patient last seen by Dr. Milan on 02/22/13, who has since then retired. Rx was last filled by PCP. Will route to PCP for refill order. Evelyn Marlow RN 07/02/2014, 3:17 PM Batsheva Clayton - 07/02/2014 8:22 AM CDT Last refilled: 11/19/13 Qty of last refill: 16-for fluticasone Refill request: Medication: Ventolin HFA INH w/DOS CTR 200 puffs Patient Sig: inhale 2 puffs by mouth every 6 hours as needed Dispense:18 Date of last Refill: 02/25/13 documented in this encounter Plan of Treatment Not on filedocumented as of this encounter Visit Diagnoses Diagnosis Allergic rhinitis due to other allergen Other chronic allergic conjunctivitis Asthma with acute exacerbation, unspecif ied asthma severity (HRC) documented in this encounter Care Teams Tester Sound Relationship Specialty Start Date End Date Destiny Peralta MD PCP - General Pediatric Medicine 09/23/13 01/21/15 [address] [place] [address] documented as of this encounter
--- OUTSIDE RECORDS SUMMARY | 2022-03-12 04:42 | XMS_ITS | Encounter Summary ---
:2001 Author Organization [employer] Address [address] [place] [address] Care Team Providers Name Role Phone Destiny Peralta MD Primary Care Provider Reason for Visit Reason Comments Patient Care Coordination Encounter Details Date Type Department Care Team Description 03/05/2014 Pt Care Coordination [facility] Destiny Peralta [address] [place] [address] [address] [facility] [phone] [place], [place] [address] (Wo rk) Social History [...] encounter Progress Notes Nicole Clemente RN - 03/05/2014 4:34 PM CST Left message to call back. Nicole Clemente RN 03/05/2014, 4:34 PM GN CELL ENGINEER documented in this encounter Miscellaneous Notes Assessment & Plan Note - Nicole Clemente RN - 03/11/2014 4:33 PM CSTAssociated Problem(s): PT CARE COORDINATION - HEALTH MCC (Resolved 07/14/2014) Father states he is still having problems with communication. Per father he just shuts down and hangs out in his room. Father states he is getting frustrated with everything. Patient continues to statethat he is talking to his father. When talking to father separately he states that Sue does nottalk to him. On a side note Sue likes playing video games. GN CELL ENGINEER documented in this encounter Plan of Treatment Not on filedocumented as of this encounter Visit Diagnoses Not on filedocumented in this encounter Care Teams Sheeter Operator Relationship Specialty Start Date End Date Destiny Peralta MD PCP - General Pediatric Medicine 09/23/13 01/21/15 [address] [place] [address] documented as of this encounter
--- OUTSIDE RECORDS SUMMARY | 2022-03-12 04:42 | XMS_ITS | Encounter Summary ---
:2001 Author Organization [employer] Address [address] [place] [address] Care Team Providers Name Role Phone Destiny Peralta MD Primary Care Provider [phone] Reason for Visit Reason Onset Date Comments Patient Care Coordination 09/26/2013 enrolled Encounter Details Date Type Department Care Team Description 09/26/2013 Telephone [facility] Destiny Peralta Patient Care [address] MD Mikhail Coordination (enrolled) [place] [address] [address] [phone] [place], [place] [address] (Wo rk) Social History Tobacco Use Types Packs/Day Years Used Date Smoking Tobacco: Passive Smoke Exposure - Never Smoker Comments: no smokers at home 11/13,matern all grandmother's home Alcohol Use Standard Drinks/Week Comments Not Asked 0 (1 standard drink = 0.6 oz pure alcoho l) Sex Assigned at Date Recorded Not on file documented as of this encounter Nursing Notes Caryn Gage RN - 09/26/2013 4:07 PM CDT Nurse spoke to father. Nurse explained the role of RN with pt care. Father is interested in enrolling in pt care coordination. Nurse will convert 10/08/2013 to shared appt. Questionaire will be completedat that time. Nurse did ask father if Appt for Aunchristina Purcell() or allergy has been made. Father states he has not made the appts yet but plans. Letter sent to father. Caryn Gage RN 09/26/2013, 4:09 PM documented in this encounter Miscellaneous Notes Assessment & Plan Note - Caryn Gage RN - 09/26/2013 4:19 PM CDT Associated Problem(s): PT CARE COORDINATION - HEALTH RETIREMENT (Resolved 07/14/2014) To be completed on 10/08/2013, shared appt documented in this encounter Plan of Treatment Not on filedocumented as of this encounter Visit Diagnoses Not on filedocumented in this encounter Care Teams Global Safety Officer Relationship Specialty Start Date End Date Destiny Peralta MD PCP - General Pediatric Medicine 09/23/13 01/21/15 [address] [place] [address] documented as of this encounter
--- OUTSIDE RECORDS SUMMARY | 2022-03-12 04:42 | XMS_ITS | Encounter Summary ---
:2001 Author Organization [employer] Address [address] [place] [address] Care Team Providers Name Role Phone Destiny Peralta MD Primary Care Provider [phone] Reason for Visit Reason Comments Patient Care Coordination Encounter Details Date Type Department Care Team Description 02/19/2014 Pt Care Coordination [facility] Destiny Peralta [address] [address] [address] [facility] [phone] [place], [place] [address] (Wo rk) Social History Tobacco Use Types Packs/Day Years Used Date Smoking Tobacco: Passive Smoke Exposure - Never Smoker Comments: no smokers at home 11/13,matern all grandmother's home Alcohol Use Standard Drinks/Week Comments Not Asked 0 (1 standard drink = 0.6 oz pure alcoho l) Sex Assigned at Date Recorded Not on file documented as of this encounter Miscellaneous Notes Assessment & Plan Note - Nicole Clemente RN - 02/21/2014 10:58 AM CSTAssociated Problem(s): PT CARE COORDINATION - HEALTH INTERMEDIATE (Resolved 07/14/2014) Father states that he is not communicating with him. He had this field trip he was suppose to go on and he lost the slip. He started to act up and there was a school conference regarding this. When talking to Nola he states he lost the slip and than decided he didn't want to go cause it was going to be stupid. Father is really frustrated that he is not able to get Sue to communicate with him.When talking to Sue he continues to say he wants to talk to his father and he wants to continueto work on it as a goal. LOPMENT PLANNER documented in this encounter Plan of Treatment Not on filedocumented as of this encounter Visit Diagnoses Not on filedocumented in this encounter Care Teams Painter Plate Relationship Specialty Start Date End Date Destiny Peralta MD PCP - General Pediatric Medicine 09/23/13 01/21/15 [address] [place] [address] documented as of this encounter
--- OUTSIDE RECORDS SUMMARY | 2022-03-12 04:42 | XMS_ITS | Encounter Summary ---
:2001 Author Organization [employer] Address [address] [place] [address] Care Team Providers Name Role Phone Destiny Peralta MD Primary Care Provider [phone] Reason for Visit Reason Comments Refill Encounter Details Date Type Department Care Team Description 02/19/2014 Refill [facility] Destiny Peralta MD Refill [address] [facility]. [address] [place] [address] [place] [address] [phone] (Wo rk) Social History Tobacco Use Types [...] encounter Nursing Notes Alma Reece RN - 02/19/2014 11:58 AM CST Refilled per standing orders. Alma Reece R.N. M PLANT RECORDS CLERK 02/19/2014 11:58 AM CST diphenhydrAMINE (AKA BENADRYL) 25 MG capsule [Pharmacy Med Name: DIPHENHYDRAMINE 25MG CAPSULES] - REFILL: 12 months (manual update required, due to unreadable sig) - PROTOCOL: OTC/Herbals/Natural Products - RATIONALE: The refill granted is the maximum allowable refill amount for this protocol. - LAST QUALIFYING VISIT IN PEDIATRICS: 09/24/2013 - NEXT SCHEDULED VISIT IN PEDIATRICS: 02/25/2014 - LAST REFILLED ON: 09/24/2013, QTY: 30, Refills: 1, Sig: take 1 cap by mouth every 6 hours as needed for itching or allergies. (changed) Powered by [employer], Reference: [id number], 02/19/2014 11:58:24 AM RM, Ozzy: TAMMY BENAVIDES RN ([id number]) M PLANT RECORDS CLERK documented in this encounter Plan of Treatment Not on filedocumented as of this encounter Visit Diagnoses Not on filedocumented in this encounter Care Teams Geometry Professor Relationship Specialty Start Date End Date Destiny Peralta MD PCP - General Pediatric Medicine 09/23/13 01/21/15 [address] [place] [address] documented as of this encounter
--- OUTSIDE RECORDS SUMMARY | 2022-03-12 04:42 | XMS_ITS | Encounter Summary ---
:2001 [facility] Address [address] [place] [address] Care Team Providers Name Role Phone Michele Hernandez MD Primary Care Provider Reason for Referral Consult/Transfer Care (Routine) - New Request Specialty Diagnoses / Procedures Referred By Contact Refer red To Contact Diagnoses [place] [address] [place], [place] [address] Referral ID Status Reason Start Date Expiration Date Visits V isits Requested Authorized [id number] New Request 12/15/2021 03/16/2023 1 1 Scheduling Instructions Your provider has recommended an appoint ment with Ana Maria Quintanilla. You can quickly make your appointment online at [employer]/schedule. You can also call [phone] for help scheduling yo ur appointment. We suggest you call your health insurance company about your cove rage and benefits for this appointment. Reason for Visit Reason Onset Date Comments Video Visit 12/14/2021 Encounter Details Date Type Department Care Team Description 12/15/2021 Telemedicine [facility] Michele Hernandez Ac ne keloidalis nucmarcos (Primary Dx); Practice MD Mild persistent asthma, unspecified whet her complicated [address] [facility] [address] [place] [address] [phone] Social History Tobacco Use Types Packs/Day Years Used Date Smoking Tobacco: Never Smokeless Tobacco: Never Alcohol Use Standard Drinks/Week Comments Yes 0 (1 standard drink = 0.6 oz pure alcoho l) Sex Assigned at Date Recorded Not on file documented as of this encounter Last Filed Vital Signs Vital Sign Reading Time Taken Comments Blood Pressure - - Pulse - - Temperature - - Respiratory Rate - - Oxygen Saturation - - Inhaled Oxygen Concentration - - Weight 94.3 kg (208 lb) 12/15/2021 11:35 AM CDT Height 175.3 cm (5' 9) 12/15/2021 11:35 AM CDT Body Mass Index 30.72 12/15/2021 11:35 AM CDT documented in this encounter Progress Notes Michele Hernandez MD - 12/15/2021 12:05 PM CDT Subjective: Today's visit with Susanclarence was conducted as a scheduled video visit. Medication Check: Which medication(s) are you here to have reviewed/refilled? Doxycycline Monohydrate Do you have difficulty taking medications as prescribed? No Do you have medication side effect concerns? No This is a 21-year-old male patient comes in today because he would like refill for doxycycline. Patient explains that he was seen by Dermatology last year and diagnosed with acne neck keloidalis nuchae Patient says that he was prescribed doxycycline which helped clear up the rash however 2 days after he stop the antibiotic the rash came back. He would like another prescription. He agrees to see Dermatology. Asthma. Mild intermittent. He uses albuterol on a p.r.n. basis. Mostly twice a week. Needs refills. No other concerns. Denies any shortness of breath or chest pain. No headache or palpitations Objective: Ht 5' 9 (1.753 m) Wt 208 lb (94.3 kg) BMI 30.72 kg/m?? General: appears well, no acute distress, alert and oriented x3 Assessment/Plan: 1. Acne keloidalis nuchae Flared up again Difficult to see on video As at the back of his neck so could not see Rx sent Refer urgent to dermatology - doxycycline monohydrate (MONODOX) 100 MG capsule; Take 1 Capsule (100 mg) by mouth two times a day. Dispense: 60 Capsule; Refill: 0 - Dermatology Consult-Adult/Peds 2. Mild persistent asthma, unspecified whether complicated (HRC) Stable. Use on a p.r.n. basis - levalbuterol (XOPENEX HFA) 45 mcg/actuation inhaler; Inhale 1-2 Puffs every 4 hours as needed for Wheezing. Dispense: 1 Each; Refill: 0 Michele Hernandez MD documented in this encounter Plan of Treatment Scheduled Referrals Name Type Priority Associated Diagnoses Order S chedule Dermatology Referral Routine Acne keloidalis nuchae Order ed: 12/15/2021 Consult-Adult/Peds documented as of this encounter Visit Diagnoses Diagnosis Acne keloidalis nuchae - Primary Other acne Mild persistent asthma, unspecified whet her complicated (HRC) documented in this encounter Care Teams Commercial Fisherman Relationship Specialty Start Date End Date Michele Hernandez MD PCP - General Family Practice 08/13/21 [address] [place] [address] documented as of this encounter
--- OUTSIDE RECORDS SUMMARY | 2022-03-12 04:42 | XMS_ITS | Encounter Summary ---
:2001 Author Organization [employer] Address [address] [place] [address] Care Team Providers Name Role Phone Garfield Mock MD Primary Care Provider Unavailable Reason for Referral Procedure/Equipment (Routine) - Closed Specialty Diagnoses / Procedures Referred By Contact Refer red To Contact Diagnoses [place] [address] [place], [place] [address] Referral ID Status Reason Start Date Expiration Date Visits Requ ested Visits Authorized [id number] Closed 09/13/2020 12/13/2021 1 1 Scheduling Instructions Your provider has placed an order for yo u to have a home sleep test. You will be contacted within the next 3 business day s to discuss the scheduling your set-up and return appointments for this device. The re may be a delay in the set-up of your home sleep test due to insurance coverage alesia ification and prior-authorization requirements. The location and contact i nformation for the site where you will cloth picker your device is as follows: [facility] A [address] [address] (option 2) [email or web address] 1. You will be scheduled for 2 visits to the sleep center (set up and return). Please allow up to 1 hour for each appointment, as there will be a significant amount of information covered in order to ensure y our test is a successful one. 2. Please notify us immediately at (option 2) if you are unable to keep your appointments. Failure to cance l or re-schedule your appointment will result in a cancellation fee. 3. Based upon the results of your home s leep test one of the following may occur: a.You may be referred back to your [facility] [place] provider for a results visit to discuss the next steps. b.You may be referred for an in-center sleep study for a more thorough diagnostic test. c.You may be referred for an in-center sleep study to titrate Positive Airway Pressure (PAP) for treatment of obstruct ralph sleep apnea (MERRITT). Encounter Details Date Type Department Care Team Description 09/13/2020 Notes/Orders [facility] Michele Hernandez Sl eep [facility] Practice (Primary Dx) [address] [facility] [address] [place] [id number] Social History Tobacco Use Types Packs/Day Years Used Date Smoking Tobacco: Never Smokeless Tobacco: Never Alcohol Use Standard Drinks/Week Comments Yes 0 (1 standard drink = 0.6 oz pure alcoho l) Sex Assigned at Date Recorded Not on file documented as of this encounter Plan of Treatment Scheduled Referrals Name Type Priority Associated Diagnoses Order S chedule Sleep Study Referral Routine Sleep disturbances Ordered: 09/13/2020 (Home)-Portable Setup documented as of this encounter Visit Diagnoses Diagnosis Sleep disturbances - Primary Sleep disturbance, unspecified documented in this encounter Care Teams Engineer Steam Relationship Specialty Start Date End Date Garfield Mock MD PCP - General Family Practice 08/24/15 08/12/21 documented as of this encounter
--- OUTSIDE RECORDS SUMMARY | 2022-03-12 04:43 | XMS_ITS | Encounter Summary ---
:2001 Author Organization [employer] Address [address] [place] [address] Care Team Providers Name Role Phone Marian Anderson APRN, CNP Primary Care Provider Unavailable Reason for Visit Reason Comments PE,C&TC Encounter Details Date Type Department Care Team Description 02/23/2004 Office Visit [facility] Marian Anderson, ROUTINE CHILD HEALTH [address] [facility] MONET RODRIGUEZ EXAM (Primary Dx) [place], [place] [id number] Social History Tobacco Use Types Packs/Day Years Used Date Smoking Tobacco: Never Comments: no smokers at home 02/11 Alcohol Use Standard Drinks/Week Comments Not Asked 0 (1 standard drink = 0.6 oz pure alcoho l) Sex Assigned at Date Recorded Not on file documented as of this encounter Last Filed Vital Signs Vital Sign Reading Time Taken Comments Blood Pressure - - Pulse - - Temperature 36.2 ??C (97.2 ??F) 02/23/2004 4:35 PM MEDICAL OBSERVER Respiratory Rate - - Oxygen Saturation - - Inhaled Oxygen Concentration - - Weight 12.7 kg (28 lb) 02/23/2004 4:35 PM MEDICAL OBSERVER Height 83.8 cm (2' 9) 02/23/2004 4:35 PM MEDICAL OBSERVER Odpdgv-bgv-Qilxxo Percentile 82.28 % 02/23/2004 4:35 PM MEDICAL OBSERVER Growth Chart: CDC (Boys, 2-20 Years) Head Circumference 49 cm 02/23/2004 4:35 PM MEDICAL OBSERVER Head Circumference Percentile 50.36 % 02/23/2004 4:35 PM MEDICAL OBSERVER Growth Chart: CDC (Boys, 0-36 Months) Body Mass Index 18.08 02/23/2004 4:35 PM MEDICAL OBSERVER Body Mass Index Percentile 87.12 % 02/23/2004 4:35 PM CS T Growth Chart: [facility] (Boys, 2-20 Years) documented in this encounter Patient Instructions Patient Egxfjpwjcrlx44/15/2004 4:40 PM MEDICAL OBSERVER It's been a pleasure seeing to your child's needs today. Please schedule his next well-child check-up at age 4. documented in this encounter Progress Notes 02/23/2004 4:40 PM MEDICAL OBSERVER S> Susan Ray is a 3 yr male who is brought in by mother for well early childhood education coordinator. History is obtainedfrom mother. PARENTAL CONCERNS: present: PE,no other Concerns about vision: None Concerns about hearing/speech: None MENTAL HEALTH RISKS: None CHEMICAL USE: None LEAD SCREENING: No risk factors. Lead level required? Yes Review of patient's family history indicates: Other Mother Comment: lactose intolerance DOMESTIC VIOLENCE SCREENING denied concerns FAMILY INTERACTION : mother laid off until April, children not now in day care. Is enjoying the time off NUTRITION: Content: varied diet, off bottles Snacks: generally nutritious, eats 3 regular meals a day, no seconds but fairly good appetitie DAILY HABITS: sleep: 1 nap elimination: no problems identified Developmental milestones: 23-24 months Usually responds to correction - stops Takes off open coat or shirt without help Walks up and down stairs alone Turns pages of picture books, one at a time Follows two-part instructions clear words REVIEW OF SYSTEMS The rest of the complete review of systems was negative. O> GENERAL: Temp (Src) 97.2 (Tympanic) Ht 2' 9 (0.84m) Wt 28 lbs (12.7kg) HC 49.0cm His weight has not increased however it is proportional to his height and BMI good alert, verbal, age appropriate behavior SKIN: no abnormalities noted HEENT: Head: Head: normocephalic Eyes: PERRL, EOMs intact, conjunctiva clear bilaterally Ears: External canals free of lesions, TM's pearly rodney with normal light reflex Nose: Nostrils patent without discharge Mouth: no deterioration of hard tissue, no inflammation, no swelling Pharynx: posterior palate and posterior pharyngeal wall normal, tonsils present and normal, uvula normal NECK: supple and no adenopathy LUNGS: clear to percussion and auscultation, no wheezes, no crackles CV: regular rate and rhythm, normal S1 and S2 without murmur or click and femoral pulses present ABDOMEN: soft, without masses, distention or organomegaly : normal male prepubertal external genitalia MS: extremities: no sign of deformity, atrophy, tenderness, asymmetry or edema, good muscle tone & symmetry, normal alignment of lower extremities NEURO: motor strength +5 throughout, sensation intact to light touch, gait normal for age and speech normal for age VISION/HEARING: normal by subjective exam DENTAL: Objective exam completed. No problems found. A> Healthy child. P> Per orders. Counseling: Social: dependence/autonomy Parenting: exploring, books Nutrition: appetite fluctuation, weight, appropriate nutrition Play and communication: imitation and language development Health: immunizations Dental: Advised of benefits and explained process of daily dental care. Safety: Discussed issues suggested during Safety Evaluation. CHELSEA Zuleta documented in this encounter Nursing Notes 02/23/2004 4:40 PM CST >> TERESA DELGADO 02/23/2004 4:37 pm Patient coverage: Use XV modifier SmartSet(s) Immunization History: DTaP 01/18/2002 03/11/2002 05/28/2002 04/14/2003 Hib-PRP-OMP 04/14/2003 Hib/HBV 01/18/2002 03/11/2002 05/28/2002 IPV(poliomyelitis) 01/18/2002 03/11/2002 05/28/2002 Influenza (6-35 Mos) 03/11/2002 04/16/2002 MMR 12/24/2002 Pneumococcal, Peds 12/24/2002 Varicella 12/24/2002 3 year pe. Teresa Delgado LPN documented in this encounter Plan of Treatment Not on filedocumented as of this encounter Procedures Procedure Name Priority Date/Time Associated Comments Diagnosis COMPLETE BLOOD Routine 02/23/2004 5:02 PM Routine Child Result s for this COUNT-NO DIFF MEDICAL OBSERVER Health Exam procedure are in the results section. LEAD, FINGERSTICK Routine 02/23/2004 5:02 PM Routine Child Res ults for this MEDICAL OBSERVER Health Exam procedure are i n the results section. documented in this encounter Results LEAD (Required for C&TC at age 24 months) (02/23/2004 5:02 PM MEDICAL OBSERVER) athologist Signature Lead, Blood 9 <10 mcg/dl [facility] Comment: Specimen Collected by Venipunct ure Specimen Anatomical Collection Method Collection Time Receive d Time (Source) Location / / Volume Laterality 02/23/2004 5:02 PM 4 5:03 MEDICAL OBSERVER PM MEDICAL OBSERVER Marian Anderson APRN, CNP LAB_1 Performing Organization Address [facility] Phon e Number [facility] [employer] [phone] [address] HEMOGRAM/PLATELETS (Recommended at 24 months) (02/23/2004 5:02 PM MEDICAL OBSERVER) athologist Signature WBC 7.9 6.0 - 17.0 [facility] k/ul RBC 4.26 3.9 - 5.3 [facility] M/ul Hemoglobin 12.4 11.5 - 13.5 [facility] g/dl HCT 35.2 34.0 - 40.0 [facility] % MCV 82.7 75 - 87 fl [facility] MCH 29.1 24 - 30 pg [facility] MCHC 35.2 32 - 36 % [facility] RDW 13.7 11.5 - 15.0 [facility] % Platelets 432 150 - 450 [facility] k/ul Specimen Anatomical Collection Method Collection Time Receive d Time (Source) Location / / Volume Laterality 02/23/2004 5:02 PM 4 5:03 MEDICAL OBSERVER PM MEDICAL OBSERVER Marian Anderson APRN, CNP LAB_1 Performing Organization Address [facility] Phon e Number [facility] [employer] [phone] [address] documented in this encounter Visit Diagnoses Diagnosis Routine infant or child health check - P rimary documented in this encounter Care Teams Professional Engineer Relationship Specialty Start Date End Date Marian Anderson APRN, CNP PCP - General 02/02/04 02/24/11 documented as of this encounter
--- OUTSIDE RECORDS SUMMARY | 2022-03-12 04:43 | XMS_ITS | Encounter Summary ---
:2001 Author Organization [employer] Address [address] [place] [address] Care Team Providers Name Role Phone Marian Anderson APRN, CNP Primary Care Provider Unavailable Encounter Details Date Type Department Care Team Description 01/29/2008 Correspondence [facility] Marian Anderson, AUTHORIZATION FOR THE [facility] [place] [address] MEDICATION [phone] Social History Tobacco Use Types Packs/Day Years Used Date Smoking Tobacco: Never Comments: no smokers at home 11/13 Alcohol Use Standard Drinks/Week Comments Not Asked 0 (1 standard drink = 0.6 oz pure alcoho l) Sex Assigned at Date Recorded Not on file documented as of this encounter Progress Notes Marian Anderson - 02/14/2008 1:35 PM MANAGER WATER WASTEWATER GER WATER WASTEWATER documented in this encounter Plan of Treatment Not on filedocumented as of this encounter Visit Diagnoses Not on filedocumented in this encounter Care Teams Steam Oven Operator Relationship Specialty Start Date End Date Marian Anderson APRN, CNP PCP - General 02/02/04 02/24/11 documented as of this encounter
--- OUTSIDE RECORDS SUMMARY | 2022-03-12 04:43 | XMS_ITS | Encounter Summary ---
:2001 Author Organization [employer] Address [address] [place] [address] Care Team Providers Name Role Phone aMrian Anderson APRN, PERFUSIONIST Primary Care Provider Unavailable Reason for Visit Reason Comments BUMP(S), NOS Encounter Details Date Type Department Care Team Description 07/17/2006 Office Visit [facility] Marian Anderson, Scarlet Fever (Primary [address] CHILD AND FAMILY SERVICES SPECIALIST, PERFUSIONIST Dx) [place] [address] Social History Tobacco Use Types Packs/Day Years [...] Pressure - - Pulse - - Temperature 36.1 ??C (97 ??F) 07/17/2006 2:20 PM CDT Respiratory Rate - - Oxygen Saturation - - Inhaled Oxygen Concentration - - Weight 17.8 kg (39 lb 4 oz) 07/17/2006 2:20 PM CDT Height - - Body Mass Index - - documented in this encounter Progress Notes Marian Anderson - 07/17/2006 2:52 PM CDT Susan Ernandez (Day see on)Flor is a 5 yr male who presents for care, accompanied by mother. History is obtained from mother and child. cc:rash SUBJECTIVE: He was ill about 6 days ago with a cough. Then 3 days ago came home c/o stomach ache, slept quite a bit. The next day had a rash covering his body which persists although he know feels well except for some itching. No recent fever, no known exposures There is no problem list on file for this patient. Allergies: Review of patient's allergies indicates no known allergies. ROS: otherwise negative OBJECTIVE: Temp (Src) 97 ??F (36.1 ??C) (Tympanic) Wt 39 lbs 4.0 oz (17.804 kg) General appearance:appears well, active Skin:hea has very rough.sandpaper like fine papules covering trunk, face, uppr arms and accentuated in inguinal folds, sl pink conjunctiva: clear Nose:mild rhinorrhea Oropharynx: tonsils 2+, no exudates Neck supple with shotty anterior cervical nodes ASSESSMENT: scarletina PLAN: 1) symptommatic treatment of pruritis discussed, see orders re amoxicillin Discussed expected course over the next week 2) discussed signs and symptoms to watch for and return for if occur: fever, poor intake,lethargy,persistence or increase in current symptoms or any signs of concern to caretakers. parent agreed with plan and instructions CHELSEA Zuleta documented in this encounter Nursing Notes 07/17/2006 2:20 PM CDT >> Kuldeep Dyer CMA Mon Jul 17, 2006 2:38 PM Pt is here for bumps all over the body and itching. Immunization History DTaP 01/18/2002 03/11/2002 05/28/2002 04/14/2003 Hib-PRP-OMP 04/14/2003 Hib/HBV 01/18/2002 03/11/2002 05/28/2002 IPV(poliomyelitis) 01/18/2002 03/11/2002 05/28/2002 Influenza Vaccine (6-35 Mos) 03/11/2002 04/16/2002 MMR 12/24/2002 MMRV 12/06/2005 Pneumococcal, Peds 12/24/2002 Varicella 12/24/2002 Payor: BRIELLE [id number] Plan: [employer] Product Type: *No Product type* Kuldeep M Said, DISPLAY AND BANNER DESIGNER documented in this encounter Plan of Treatment Not on filedocumented as of this encounter Visit Diagnoses Diagnosis Scarlet fever - Primary documented in this encounter Care Teams Home Care Manager Rn Relationship Specialty Start Date End Date Marian Anderson APRN, PERFUSIONIST PCP - General 02/02/04 02/24/11 documented as of this encounter
--- OUTSIDE RECORDS SUMMARY | 2022-03-12 04:43 | XMS_ITS | Encounter Summary ---
:2001 Author Organization [employer] Address [address] [place] [address] Care Team Providers Name Role Phone Unassigned, Provider Primary Care Provider Unavailable Reason for Visit Reason Comments Routine Eye Exam First exam Decreased Vision Far Mom states he has to sit lisa se to the tv. His eyes also water. Encounter Details Date Type Department Care Team Description 04/30/2012 Office Visit [facility] Johnathan Frank, OD Exa mination of eyes and vision (Primary Dx); [facility] [address] [place] [address] Social History Tobacco Use Types Packs/Day Years Used Date Smoking Tobacco: Never Comments: no smokers at home 11/13 Alcohol Use Standard Drinks/Week Comments Not Asked 0 (1 standard drink = 0.6 oz pure alcoho l) Sex Assigned at Date Recorded Not on file documented as of this encounter Patient Instructions Patient InstructionsJohnathan Frank OD - 04/30/2012 2:26 PM CST Thank you for choosing [facility] for your eye care needs. Many tests were done to check your eye health today including: pupil reaction, eye muscle function, peripheral (side) vision, visual acuity, and eye pressure. The health of your eyes was also checked, both on the outside as well as the inside of each eye. Your eyeglass prescription or contact prescription may have also been updated. Early detection of eye health problems is important to keep your eyes healthy over your lifetime. Atyour eye exam we are looking for signs of glaucoma, diabetes, high blood pressure, cataract, dry eye, eye allergies, and many other conditions. Frequently Asked Questions: Why do you use eye drops? We use a clear drop to dilate, or open the pupil wider. This allows us to have a clearer, wider view inside the eye to look for signs of eye disease. We use a different eye drop to check the pressure inside the eye; this is usually the yellow eye drop. How long will my eyes be blurry today? Your vision will be blurry up close for about an hour, and your eyes will stay dilated for about 4 hours. You will need to wear sunglasses when you are outside today. If you do not have any sunglasses with you, there are some disposable ones available. Please usecaution in getting around for the few hours that your eyes are dilated. How can I contact the clinic in the future? Appointment Center: [phone] Eye Dept: [phone] Online Services: [email or web address] For after hours care, call the CareLine at [phone] or . We look forward to taking care of your eye care needs in the years to come. CTOR OF RETAIL ANALYTICS documented in this encounter Progress Notes Johnathan Frank, OD - 04/30/2012 3:00 PM CST HPI Chief Complaint Patient presents with ??? Routine Eye Exam First exam ??? Decreased Vision Far Mom states he has to sit close to the tv. His eyes also water. History Reviewed Assessment Low hyperopia OU Possible color vision deficiency-poor effort today-repeat at next exam Plan Spectacle Prescription none Return to clinic in 2-3 year(s). Johnathan Frank, GIL CTOR OF RETAIL ANALYTICS documented in this encounter Plan of Treatment Not on filedocumented as of this encounter Visit Diagnoses Diagnosis Examination of eyes and vision - Primary Hyperopia Hypermetropia documented in this encounter Care Teams Senior Program Manager Relationship Specialty Start Date End Date Unassigned, Provider PCP - General Unknown Physician 02/25/11 02/21/[address] [place] [address] documented as of this encounter
--- OUTSIDE RECORDS SUMMARY | 2022-03-12 04:43 | XMS_ITS | Encounter Summary ---
:2001 Author Organization [facility] Address [address] [place] [address] Care Team Providers Name Role Phone Marian Anderson APRN, CNP Primary Care Provider Unavailable Encounter Details Date Type Department Care Team Description 04/14/2003 Correspondence None Unknown, [facility]SENT AND RELEASE [address] [place] [address] (Wo rk) Social History Tobacco Use Types Packs/Day Years Used Date Smoking Tobacco: Never Comments: no smokers at home 04/14/03 Alcohol Use Standard Drinks/Week Comments Not Asked 0 (1 standard drink = 0.6 oz pure alcoho l) Sex Assigned at Date Recorded Not on file documented as of this encounter Progress Notes Unknown, Physician - 04/14/2003 12:00 AM SERVER CASHIER documented in this encounter Plan of Treatment Not on filedocumented as of this encounter Visit Diagnoses Not on filedocumented in this encounter Care Teams Airplane Gastank Liner Assembler Relationship Specialty Start Date End Date Marian Anderson APRN, CNP PCP - General 02/02/04 02/24/11 documented as of this encounter
--- OUTSIDE RECORDS SUMMARY | 2022-03-12 04:43 | XMS_ITS | Encounter Summary ---
:2001 Author Organization [employer] Address [address] [place] [address] Care Team Providers Name Role Phone Destiny Peralta MD Primary Care Provider [phone] Reason for Visit Reason Onset Date Comments BEHAVIOR CONCERNS 09/23/2013 Encounter Details Date Type Department Care Team Description 09/23/2013 Telephone [facility] No BEHAVIOR CONCERNS [address] Primary/Referring, [place] [address] y [phone] Social History Tobacco Use Types Packs/Day Years Used Date Smoking Tobacco: Never Comments: no smokers at home 11/13 Alcohol Use Standard Drinks/Week Comments Not Asked 0 (1 standard drink = 0.6 oz pure alcoho l) Sex Assigned at Date Recorded Not on file documented as of this encounter Nursing Notes Kyra Coyne RN - 09/23/2013 3:30 PM CDT Spoke with FatherTimo. He has several concerns regarding Sue. 1- Learning disability- has medications, and IEP 2. Problems with Asthma- needs inhaler, needs nebulizer with medications 3- Child is having crying spells, seems to shut down/withdraw, anxiety concerns. 4- Father has complete custody of child Appointment with Dr. Peralta on 09/24/13 Child may need [facility] Child may need Behavioral Health Kyra Coyne RN 09/23/2013, 3:35 PM Kyra Coyne, LAYO - 09/23/2013 3:11 PM CDT Message left for parent, Father- Timo to return my call. Sue has not been seen at this clinicbefore. Where has child been receiving his well child checks? Kyra Coyne RN 09/23/2013, 3:12 PM Hermelinda Fernandez - 09/23/2013 2:24 PM CDT Patient would like to speak to his ANY TRIAGE NURSE Name of patient's provider: N/A Summarize the patient's question or concern: FATHER REQ APPT FOR PT FOR BEHAVIORAL ISSUES. Is it okay to leave detailed message on your voicemail? YES If after 3pm, can this wait until tomorrow? NO Hermelinda Fernandez documented in this encounter Plan of Treatment Not on filedocumented as of this encounter Visit Diagnoses Not on filedocumented in this encounter Care Teams Marketing Information Coordinator Relationship Specialty Start Date End Date Destiny Peralta MD PCP - General Pediatric Medicine 09/23/13 01/21/15 [address] [place] [address] documented as of this encounter
--- OUTSIDE RECORDS SUMMARY | 2022-03-12 04:43 | XMS_ITS | Encounter Summary ---
:2001 Author Organization [employer] Address [address] [place] [address] Care Team Providers Name Role Phone Michele Hernandez MD Primary Care Provider Encounter Details Date Type Department Care Team Description 08/10/2013 Correspondence External to External, [facility] [employer] [place] [address] Social History Tobacco Use Types Packs/Day Years [...] on filedocumented in this encounter Care Teams Snow Plow Operator Relationship Specialty Start Date End Date Michele Hernandez MD PCP - General Family Practice 08/13/21 [address] [place], [place] [id number] documented as of this encounter
--- OUTSIDE RECORDS SUMMARY | 2022-03-12 04:43 | XMS_ITS | Encounter Summary ---
:2001 Author Organization [employer] Address [address] [place] [address] Care Team Providers Name Role Phone Marian Anderson APRN, CNP Primary Care Provider Unavailable Reason for Visit Reason Comments Follow-up, NOS Encounter Details Date Type Department Care Team Description 09/01/2005 Office Visit [facility] Marian Anderson, MOLLUSCUM CONTAGIOSUM [address] [facility] MONET RODRIGUEZ (Primary Dx) [place], [place] [id number] Social History Tobacco Use Types Packs/Day Years [...] Pressure - - Pulse - - Temperature 36.6 ??C (97.9 ??F) 09/01/2005 4:00 PM CDT Respiratory Rate - - Oxygen Saturation - - Inhaled Oxygen Concentration - - Weight 15.4 kg (34 lb) 09/01/2005 4:00 PM CDT Height - - Body Mass Index - - documented in this encounter Progress Notes 09/01/2005 4:00 PM CDT Susan Ray is a 4 yr male who presents for care, accompanied by mother. History is obtained from mother. cc: rash SUBJECTIVE: seen here for molluscum at outset 08/11. Returns becayse rash has spread rapidly. Not ill There is no problem list on file for this patient. ROS: otherwise negative OBJECTIVE: Temp (Src) 97.9 (Tympanic) Wt 34 lbs (15.4kg) skin: multiple small umbilicated paplues over philtrum and chin. One tiny one at right ocular innercanthus ASSESSMENT: molluscum PLAN: retin A per orders to chin and philtrum, avoid eye refer to Derm unless clears prior to appt CHELSEA Zuleta documented in this encounter Nursing Notes 09/01/2005 4:00 PM CDT >> KULDEEP DYER 09/01/2005 4:29 pm pt. is here for follow up infection on his chin. Immunization History: DTaP 01/18/2002 03/11/2002 05/28/2002 04/14/2003 Hib-PRP-OMP 04/14/2003 Hib/HBV 01/18/2002 03/11/2002 05/28/2002 IPV(poliomyelitis) 01/18/2002 03/11/2002 05/28/2002 Influenza (6-35 Mos) 03/11/2002 04/16/2002 MMR 12/24/2002 Pneumococcal, Peds 12/24/2002 Varicella 12/24/2002 Payor: PMAP - FAMILY MEDICAID Plan: [facility]- 2 Product Type: HMO Kuldeep Dyer MA Student documented in this encounter Plan of Treatment Not on filedocumented as of this encounter Visit Diagnoses Diagnosis Molluscum contagiosum - Primary documented in this encounter Care Teams Linux Network Engineer Relationship Specialty Start Date End Date Marian Anderson APRN, METALLURGICAL ENGINEERING TEACHER PCP - General 02/02/04 02/24/11 documented as of this encounter
--- OUTSIDE RECORDS SUMMARY | 2022-03-12 04:43 | XMS_ITS | Encounter Summary ---
:2000 Author Organization [facility] Address [address] [place] [address] Care Team Providers Name Role Phone Unassigned, Provider Primary Care Provider Unavailable Reason for Referral Consult/Transfer Care - Closed Specialty Diagnoses / Procedures Referred By Contact Refer red To Contact Diagnoses [place]racture, [place] [address] [place] [id number] Referral ID Status Reason Start Date Expiration Date Visits Requ ested Visits Authorized [id number] Closed 12/09/2011 1 1 Scheduling Instructions Your provider has recommended an appoint ment with [facility]. You may call [phone], Option 1 to sched ule your appointment. If you prefer, a highway design engineer will contact you within the ne xt 3 business days to assist you in setting up this appointment. Consult/Transfer Care - Closed Specialty Diagnoses / Procedures Referred By Contact Refer red To Contact Diagnoses Undescended testicle Constantine Dempsey MD [address] [place] [address] Referral ID Status Reason Start Date Expiration Date Visits Requ ested Visits Authorized [id number] Closed 12/09/2011 1 1 Scheduling Instructions If scheduling assistance is needed, keegan prescott inquire with the medical office staff upon exiting your appointment or contact the ordering clinic for recommended locations. This recommended service/s may not be co miki by your insurance coverage. To find out your specific benefit coverage, please c all the number on your insurance card. Reason for Visit Reason Comments PE,C&TC 11 yr Health Maintenance Communication ipv and tdap Encounter Details Date Type Department Care Team Description 12/09/2011 Office Visit Anna Chavis Constantine Dempsey infant or child health check (Primary Dx); Kapil Mosquera MD Wrist injury; [address] Undescended testicle; [place] [address] Fracture, radius [phone] Social History Tobacco Use Types Packs/Day Years Used Date Smoking Tobacco: Never Comments: no smokers at home 11/13 Alcohol Use Standard Drinks/Week Comments Not Asked 0 (1 standard drink = 0.6 oz pure alcoho l) Sex Assigned at Date Recorded Not on file documented as of this encounter Last Filed Vital Signs Vital Sign Reading Time Taken Comments Blood Pressure 90/60 12/09/2011 10:14 AM CDT Pulse 66 12/09/2011 10:14 AM CDT Temperature 36.4 ??C (97.6 ??F) 12/09/2011 10:14 AM CDT Respiratory Rate - - Oxygen Saturation - - Inhaled Oxygen Concentration - - Weight 35.4 kg (78 lb) 12/09/2011 10:14 AM CDT Height 139.7 cm (4' 7) 12/09/2011 10:14 AM CDT Body Mass Index 18.13 12/09/2011 10:14 AM CDT Body Mass Index Percentile 73.68 % 12/09/2011 10:14 AM C DT Growth Chart: CDC (Boys, 2-20 Years) documented in this encounter Patient Instructions Patient InstructionsHer, Raisa Baker, [facility] - 12/09/2011 10:16 AM CDT 7-11 Years: A Parent???s Guide Your developing child Social development Your child is now in the school years, or as some parents call them: ???the diane years of childhood.?? As children grow and learn, they require less help and supervision from parents. Friends becomemore and more important, but the overwhelming peer pressure of adolescence is not yet evident. School is the center of much of your child???s life, and teachers can be very influential. Skills such as reading and physical coordination improve rapidly, opening up a new world of independence for your child. School-related problems (learning problems, behavior difficulties) may surface during these early school years. Get help if you feel that you need it. The school psychologist, your child???s teacher, assistance specialist, counselors and your health care provider, are all important sources of help. A parent advocate group called [employer] can also be a great help with school problems. Call [phone]. Sexuality As children approach age 11, they may be showing some signs of puberty. Girls frequently have early breast development, and some have started their menstrual periods by age 10 or 11. Boys typically show changes a year or two later, but some may already have pubic hair or voice changes. Be respectful of your child???s need for privacy at this age. Expect some moodiness as the stormy adolescent years approach. Be open and honest with your child about issues related to their bodyand sexuality. Activity Many children have their first experience with organized sports at this age. T- ball teams, soccer teams, basketball teams, etc., are sponsored by most [employer] and schools. Coaches are usually community volunteers with children the same age as yours. If your child is interested in team sports, try to find a professional athletes coach who emphasizes learning the sport and having fun rather than just winning. Consider being a professional athletes coach yourself if you have the time. A child of any skill level can have fun on a team if the emphasis is on building skills and developing self-esteem. Avoid criticizing your child???s performance. Praise the good things and try to ignore the mistakes. Avoid overscheduling your child. Too many games, practices, lessons and performances leaves no free time to just ???goof off.?? Goof-off time is a valuable creative, imaginative time for children. Watching television can get to be a habit at this age. Try to set a good example by limiting your own TV viewing. Encourage physical activity, reading and hobbies. Video games can also be consuming, but in limited amounts are not bad. Make sure youget your child a library card and make frequent trips to the library as a family. Consider music lessons, scouting and other activities to divert your child from the TV screen. Parenting In spite of their new-found independence, school-aged children still depend on their parents in subtle ways. They continually test their ideas in the family setting, and look to their parents for guidance and support. Gently encourage your children to make some decisions on their own and to discuss their feelings when things don???t go well. Children at this age have a strong sense of right and wrong. They are outraged at unfairness or injustice. Questions will come up frequently about confusing social issues, such as war, poverty, crime, etc. These questions offer a great opportunity for open communication between parent and child. Remember to listen to your child as well as talk to him or her. Try not to preach -- share ideas and discuss problems. Nutrition for your child Eating Growth is slow throughout the years before puberty. Children are usually active enough to have good appetites, but some are still picky eaters. If your child is very picky, try to avoid sugary snacks which spoil the appetite. Snacking is important for growing bodies, so try to have nutritious snacks handy. Fresh fruit, nuts, yogurt, cheese and crackers, peanut butter, and even ice cream are preferable to candy bars, soda pop, Venu-aid?? and chips. At meal times, offer a well-balanced menu including low-fat milk, lean meats, vegetables or fruit and a grain product such as pasta, rice or bread. Try to avoid packing high-fat lunches with chips and sweets every day. Substitute pretzels, popcorn, dry ce reals and fruits often. Encourage your child to eat breakfast every day. Children who go to school with an empty stomach may have difficulty concentrating, and frequently experience headaches and chronic stomach aches. Your child???s health Dental health Children should be in the habit of brushing and flossing their teeth regularly, but still may need occasional reminders. Tobacco and its harmful effects Children may become aware of smoking early in life when they see their parents and others smoking. This may prompt them to imitate smoking. It may also set the stage for them to become smokers when they are older. As a parent, you can play an important role in helping your kids say ???no?? to tobacco: Don???t allow smoking in your home. Don???t smoke. If you do, don???t smoke in front of children. Make it clear that you don???t approve of smoking. Don???t let your children see or handle your smoking materials. Warn your children about the dangers of smoking. Child safety checklist Safety in the car Insist that your child wear a seat belt every time he rides in a car. Remember to set a good exampleby wearing your own. If your child cannot sit with his legs bent over the edge of the seat without slouching, he still needs to sit in a booster seat in order for the seat belts to fit and protect correctly. Do not allow children to place shoulder straps behind their back or under their arm. The safest place for your child is in the back seat of a vehicle. It is especially important for children under age 13 to sit in the back seat of cars with passenger-side airbags. The force of an expanding airbag can kill a young child. Safety at home Keep matches and lighters out of childrens??? reach. Make sure you have working smoke detectors in your home. Check the batteries monthly and replace them twice a year. Practice a fire-escape plan with your family. If you have guns in your home, store them unloaded and locked. ?? 2004- [employer] -12/15. It has been a pleasure taking care of your child today. A dentist appointment each year is important for your child's health. Your child's insurance may pays for this. If you don't know where to take your child to see the dentist, check your child's insurance card or call [phone] for help. documented in this encounter Progress Notes Constantine Dempsey MD - 12/09/2011 10:50 AM CDT Subjective Sue Ray is a 11 yr male who presents accompanied by his mother for routine director maternal child. Parental/Patient Concerns absent SCHOOL Name: [employer] Grade: 5 Success: struggles Sports/Recreational Activities Sports: none Exercise: adequate Extracurricular Activities: none Recreation/Hobbies/TV: does not read daily Cardiovascular Risk none I have reviewed and updated the family, past and surgical history. Daily Activities Nutrition: well balanced and varied diet, inadequate milk intake Sleep: adequate sleep Dental Care: brushes daily date of last dental visit > 6 months Developmental Assessment Family/Relationships/Community Current Living Situation: lives with parent(s) and blended family Family: no problems identified Peer: Patient has had trouble with police at his previous school. Mother went to bed his counselor and principal and has not changed schools. Part of the problem may be patient's struggle in class the past Abuse: absent Mental Health Issues: None Active Support/Resources: [place] Environmental Risks Tuberculosis Screening: Not indicated Sports Screening Patient notes history of: nothing significant After exercise, patient denies: any concerns Highest weight in past year: current weight Lowest weight in past year: Patient's preferred ideal weight: Patient is following appropriate growth curve and does not have concerns about his weight. Review of Systems Detailed review of systems including constitutional, skin, eyes, ENT, resp, CVS, GI & , revealed no abnormality except as detailed above. Objective BP 90/60 Pulse 66 Temp(Src) 97.6 ??F (36.4 ??C) (Tympanic) Ht 4' 7 (1.397 m) Wt 78 lb (35.381 kg) BMI 18.13 kg/m2 Estimated Body mass index is 18.13 kg/(m^2) as calculated from the following: Height as of this encounter: 4' 7(1.397 m). Weight as of this encounter: 78 lb(35.381 kg). Normal Abnormal GENERAL X HEENT Head X Eyes/Nose X Ears X Mouth/Pharynx X NECK X LYMPHATICS X LUNGS X CV X ABDOMEN X X: Has a single testicle palpable in the left side not palpable on the right MS X: Has tenderness and deformity of the right wrist NEURO X SKIN X Vision Objective exam completed. No problems found. and Subjective assessment. No problems found Visual Acuity Screening performed and documented in nurse's note. Hearing Objective exam completed. No problems found. and Subjective assessment. No problems found Audiogram passed. Toi Staging GENITALS 1: preadolescent PUBIC HAIR 1: preadolescent. AAP MS Exam (Sports) Neck: Full range of movement Shoulder: Full range of movement Elbow: Full range of movement Hands: Full range of movement Back: Full range of movement Quad/Ham: Full range of movement Ankle: Full range of movement Feet: Full range of movement Heel/Toe: normal Duck Walk: normal Right wrist x-ray shows a healed fracture distal radius with some angulation Assessment Undescended testicle Healed fracture distal radius with angulation Learning difficulty at school possible attention deficit/hyperactivity disorder Healthy child. Plan See urology from this and testicle See orthopedist for review of x-rays and wrist exam for the old fracture there Will send attention deficit/hyperactivity disorder evaluation packet. Explained above she thought questionnaires have teacher fill out questionnaires after his been in school for these to short time and then schedule appointment with cognos analyst for further evaluation. This is explained to mom and she left without the packet today. Per orders and patient instructions. Counseling Immunizations: immunizations up to date. We do not have record of this kindergarten physical mother says he got them out of town another clinic. She will attempt to find the record and bring them in for us. Social: increased responsibility Parenting: increased autonomy in decision making Nutrition: age specific nutritional needs Play and communication: organized sports/regular exercise and appropriate use of TV/video games (total Screen Time) Health: adequate rest at night Dental: Reinforced need for regular brushing and flossing. Emphasized need for annual dental exam by a licensed dentist. Safety: seat belts Follow-up Next preventive health care visit in 2 years Constantine Dempsey MD documented in this encounter Plan of Treatment Scheduled Referrals Name Type Priority Associated Diagnoses Order S chedule UROLOGY CONSULT-PEDS Referral Routine Undescended testicle Ordered: 12/09/2011 ORTHOPAEDIC/SPORTS MED Referral Routine Fracture, radius O rdered: 12/09/2011 CONSULT ADULT/PEDS documented as of this encounter Results XR WRIST RIGHT (ROUTINE) (12/09/2011 11:34 AM CDT) Anatomical Region Laterality Modality Upper Extremity, Wrist Computed Radiogra phy Specimen (Source) Anatomical Collection Method Collection Time Re ceived Time Location / / Volume Laterality 12/09/2011 11:34 AM CDT Narrative 12/09/2011 1:28 PM CDT RIGHT WRIST 3 VIEWS 12/09/2011 INDICATION: Injury and wrist pain. FINDINGS: There is a healing fracture of the distal right radius at the diaphyseal metaphyseal junction. There i s a large amount of bridging callus formation along the dorsal aspect of th e distal radius. There is dorsal angulation of the distal radius. There i s approximately 26 degrees of dorsal angulation of the distal radius o n the lateral view. Fracture is nondisplaced. No evidence for acute inju ry. IMPRESSION: Healing subacute fracture of the distal right radius with dorsal angulation of the distal radius. Procedure Note Rajat Acevedo MD - 12/09/2011Form atting of this note might be different from the original. RIGHT WRIST 3 VIEWS 12/09/2011 INDICATION: Injury and wrist pain. FINDINGS: There is a healing fracture of the distal right radius at the diaphyseal metaphyseal junction. There i s a large amount of bridging callus formation along the dorsal aspect of th e distal radius. There is dorsal angulation of the distal radius. There i s approximately 26 degrees of dorsal angulation of the distal radius o n the lateral view. Fracture is nondisplaced. No evidence for acute inju ry. IMPRESSION: Healing subacute fracture of the distal right radius with dorsal angulation of the distal radius. Constantine Dempsey MD RAD GD documented in this encounter Visit Diagnoses Diagnosis Routine infant or child health check - P rimary Wrist injury Injury, other and unspecified, elbow, fo rearm, and wrist Undescended testicle Undescended testis Fracture, radius Closed fracture of unspecified part of r adius (alone) Wrist injury Injury, other and unspecified, elbow, fo rearm, and wrist documented in this encounter Care Teams Manager Credit Risk Relationship Specialty Start Date End Date Unassigned, Provider PCP - General Unknown Physician 02/25/11 02/21/[address] [place] [id number] documented as of this encounter
--- OUTSIDE RECORDS SUMMARY | 2022-03-12 04:43 | XMS_ITS | Encounter Summary ---
:2000 Author Organization [facility] Address [address] [place] [address] Care Team Providers Name Role Phone Marian Anderson APRN, CNP Primary Care Provider Unavailable Reason for Visit Reason Comments PE Encounter Details Date Type Department Care Team Description 12/06/2005 Office Visit [facility] Marian Anderson, Routine or Child Heal th Check (Primary Dx); [address] [facility] MONET RODRIGUEZ [employer]; [place] [address] Rhinitis [phone] Social History Tobacco Use Types Packs/Day Years Used Date Smoking Tobacco: Never Comments: no smokers at home 11/13 Alcohol Use Standard Drinks/Week Comments Not Asked 0 (1 standard drink = 0.6 oz pure alcoho l) Sex Assigned at Date Recorded Not on file documented as of this encounter Last Filed Vital Signs Vital Sign Reading Time Taken Comments Blood Pressure 78/40 12/06/2005 8:20 AM CDT Pulse - - Temperature 35.8 ??C (96.4 ??F) 12/06/2005 8:20 AM CDT Respiratory Rate - - Oxygen Saturation - - Inhaled Oxygen Concentration - - Weight 15.9 kg (35 lb) 12/06/2005 8:20 AM CDT Height 100.3 cm (3' 3.5) 12/06/2005 8:20 AM CDT Yocyhv-qcg-Yvzqyy Percentile 53.13 % 12/06/2005 8:20 AM CDT Growth Chart: CDC (Boys, 2-20 Years) Body Mass Index 15.77 12/06/2005 8:20 AM CDT Body Mass Index Percentile 54.87 % 12/06/2005 8:20 AM CD T Growth Chart: [facility] (Boys, 2-20 Years) documented in this encounter Patient Instructions Patient Ynypflrbyxad37/29/2006 8:20 AM CDT Visual acuity screening: Right 20/20 and Left 20/20 Audiogram performed. Passed Right Ear: 500 Hz: 25 dB 1000 Hz: 20 dB 2000 Hz: 20 dB 4000 Hz: 20 dB. and Passed Left Ear: 500 Hz: 25 dB 1000 Hz: 20 dB 2000 Hz: 20 dB 4000 Hz: 20 dB. Child is healthy, chronic health concerns: none. May participate in school activities/athletics without restrictions. CHELSEA Zuleta documented in this encounter Progress Notes 12/06/2005 8:20 AM CDT S> Susan Ray is a 5 yr male who presents accompanied by mother for well day care home provider. History is obtained from mother. PARENTAL CONCERNS: none; however he does have a runny nose which mother says is quite peristent: clear, o fever and minimal cough There is no problem list on file for this patient. Review of patient's family history indicates: Other Mother Comment: lactose intelerance DAILY ACTIVITIES Feeding/Nutrition: Well-balanced, appropriate for age,Milk, Juice once daily, Table Foods Sleep: sleeps through night. Dental: Brushes daily Exercise: adequate Recreation/TV: parent reading to child: yes, loves books Family Circumstances:he has an older and younger sister, mother employed again Daycare/Preschool/School: Grandma babysits Active Support/Resources:[place], [facility], school in the fall, employment of mother, family ----- ENVIRONMENTAL RISKS: none. ----- REQUIRED TESTING: Tuberculosis Screening: High Risk factors: No risk factors Tb Test Required?: No ----- DEVELOPMENTAL MILESTONES: [place] Developmental Screening passed for age. Protective toward younger children Dresses and undresses without help, except shoelaces Hops on one foot, without support Cuts across paper with small scissors Understands concepts of size, number, shape copies line, [place] but not a cross clear speech, names colors and shapes REVIEW OF SYSTEMS:Other than concerns/questions the rest of the complete review of systems was negative. O> GENERAL: BP 78/40 Temp (Src) 96.4 (Tympanic) Ht 3' 3.5 (1.00m) Wt 35 lbs (15.9kg) well-developed, well-nourished child who behaves age appropriately.. Parent/Child Interaction(Observed): appropriate Skin: no abnormalities noted HEENT: Head: normocephalic Eyes: pupils equally round and reactive to light and cross cover test normal, watery, no purulent discharge Ears: both external canals and tympanic membranes free of lesions or abnormalities Nose: Nostrils patent with copious clear discharge Mouth: no dental abnormalities found Pharynx: tonsils present, not enlarged, no exudate Neck: full range of motion, no significant adenopathy CHEST: chest wall symmetry LUNGS: clear to auscultation, no wheezes, no rales or rhonchi CV: regular rhythm, no abnormal heart sounds, no murmurs, femoral pulses present and equal ABDOMEN: soft, without masses, distention or organomegaly : normal male prepubertal genitalia MS: range of motion full, all joints, no scoliosis NEURO: speech normal, gait normal, muscle tone normal VISION: Objective exam completed. No problems found. Visual acuity screening: Right 20/20 and Left 20/20 HEARING: Objective exam completed. No problems found. Audiogram performed. Passed Right Ear: 500 Hz: 25 dB 1000 Hz: 20 dB 2000 Hz: 20 dB 4000 Hz: 20 dB. and Passed Left Ear: 500 Hz: 25 dB 1000 Hz: 20 dB 2000 Hz: 20 dB 4000 Hz: 20 dB. A> Healthy child. chronis rhinitis P> Per orders. COUNSELING: Social: family activities Parenting: close communication with schools Nutrition: appetite fluctuation Play and communication: amount and type of screen time Health:Immunizations, discussed risks, benefits, alternatives; contacts for care discussed; claritin per orders Dental: Stressed need for regular visits to licensed dentist. Reinforced benefits of daily dental care including fluoride Safety: car and bike safety discussed Follow-up: Next preventive health care visit in 1 year CHELSEA Zuleta documented in this encounter Nursing Notes 12/06/2005 8:20 AM CDT >> KULDEEP DYER 12/06/2005 9:41 am Patient/Parent(s)/Legal Guardian(s) verbalized understanding of risks, possible side effects, and benefits of the vaccines and gave permission to administer the stated immunization(s). No precautions or contraindications noted. >> KULDEEP DYER 12/06/2005 9:06 am pt is in for PE. audiogram results: Right: 970 12 2065 20 2000 20 4000 20 Left: 096 30 7033 20 2000 20 4000 20 Eye exam: L: 20/ 20, R: 20/ 20 Lenses: NO Immunization History: DTaP 01/18/2002 03/11/2002 05/28/2002 04/14/2003 Hib-PRP-OMP 04/14/2003 Hib/HBV 01/18/2002 03/11/2002 05/28/2002 IPV(poliomyelitis) 01/18/2002 03/11/2002 05/28/2002 Influenza (6-35 Mos) 03/11/2002 04/16/2002 MMR 12/24/2002 Pneumococcal, Peds 12/24/2002 Varicella 12/24/2002 Payor: PMAP - FAMILY MEDICAID Plan: [facility] 2 Product Type: HMO Kuldeep Dyer MA documented in this encounter Plan of Treatment Not on filedocumented as of this encounter Visit Diagnoses Diagnosis Routine or child health check - P rimary Need for prophylactic vaccination and in oculation against other combinations of diseases Rhinitis Chronic rhinitis documented in this encounter Care Teams Wastewater Project Engineer Relationship Specialty Start Date End Date Marian Anderson, BACTERIOLOGY TEACHER, CRIMINAL PROFILER PCP - General 02/02/04 02/24/11 documented as of this encounter
--- OUTSIDE RECORDS SUMMARY | 2022-03-12 04:43 | XMS_ITS | Encounter Summary ---
:2001 Author Organization [facility] Address [address], [place] [address] Care Team Providers Name Role Phone Espinoza Gibbs APRN, CNP Primary Care Provider Unavailable Reason for Visit Reason Onset Date Comments Refill 10/07/2004 Encounter Details Date Type Department Care Team Description 10/07/2004 Refill [facility] Espinoza Gibbs APRN, CNP Refill [address] [place] [address] Social History Tobacco Use Types Packs/Day Years Used Date Smoking Tobacco: Never Comments: no smokers at home 02/11 Alcohol Use Standard Drinks/Week Comments Not Asked 0 (1 standard drink = 0.6 oz pure alcoho l) Sex Assigned at Date Recorded Not on file documented as of this encounter Nursing Notes 10/07/2004 11:59 PM CDT >> EDILBERTO GIBBS [facility] Oct 07, 2004 11:56 AM Approved Prescriptions: Disp Refills HYDROCORTISONE 1 % EX OINT 60 gm 1 Sig: Apply thinly 2-3 times daily to eczema as directed Authorizing Provider: ESPINOZA GIBBS >> GAEL FLORES I MonOct 07, 2004 10:43 AM please authorize refill if appropriate documented in this encounter Plan of Treatment Not on filedocumented as of this encounter Visit Diagnoses Diagnosis Contact dermatitis and other eczema, due to unspecified cause - Primary documented in this encounter Care Teams Engine Monitor Relationship Specialty Start Date End Date Espinoza Gibbs APRN, COFOUNDER PCP - General 02/02/04 02/24/11 documented as of this encounter
--- OUTSIDE RECORDS SUMMARY | 2022-03-12 04:43 | XMS_ITS | Encounter Summary ---
:[address] [facility] Address [address] [place] [address] Care Team Providers Name Role Phone Marian Anderson APRN, MONET Primary Care Provider Unavailable Reason for Visit Reason Onset Date Comments REFERRAL REQUEST 09/07/2005 Encounter Details Date Type Department Care Team Description 09/07/2005 Telephone [facility] Marian Anderson APRN, REFERRAL REQUEST [address] [place] [address] Social History Tobacco Use Types Packs/Day Years Used Date Smoking Tobacco: Never Comments: no smokers at home 02/11 Alcohol Use Standard Drinks/Week Comments Not Asked 0 (1 standard drink = 0.6 oz pure alcoho l) Sex Assigned at Date Recorded Not on file documented as of this encounter Nursing Notes 09/07/2005 11:59 PM CDT >> NICKI Wu Sep 09, 2005 3:08 PM Talked with father re: Derm will not consider molluscum an emergency and will not see sooner. If ptgets more around eyes. father is to call back. He has only one spot now and a couple on cheeks. Fat her is to call and make the appt that is avail and call for cancels. Nicki Ibrahim RN >> ERICK BASURTO I Shannan Sep 08, 2005 2:56 PM patient mother Allie is calling to get the Dermatology referral she is willing to call and make th e appointment but she needs the referral in the system please thank you >> NICKI IBRAHIM MonSeptember 07, 2005 11:58 AM Called and pt hung up before I could talk to them. Nicki Ibrahim RN >> SCOUT SILVA MonSeptember 07, 2005 11:30 AM The father is requesting a referral for pt to see a dermatology. documented in this encounter Plan of Treatment Not on filedocumented as of this encounter Visit Diagnoses Not on filedocumented in this encounter Care Teams Inside Sales Executive Relationship Specialty Start Date End Date Marian Anderson APRN, GLOBAL TRANSPORTATION MANAGER PCP - General 02/02/04 02/24/11 documented as of this encounter
--- OUTSIDE RECORDS SUMMARY | 2022-03-12 04:43 | XMS_ITS | Encounter Summary ---
:2001 Author Organization [facility] Address [address], [place] [address] Care Team Providers Name Role Phone Marian Anderson APRN, CNP Primary Care Provider Unavailable Encounter Details Date Type Department Care Team Description 12/06/2005 Correspondence None Kannan Llamas, Provider consent to release Social History Tobacco Use Types Packs/Day Years Used Date Smoking Tobacco: Never Comments: no smokers at home 11/13 Alcohol Use Standard Drinks/Week Comments Not Asked 0 (1 standard drink = 0.6 oz pure alcoho l) Sex Assigned at Date Recorded Not on file documented as of this encounter Progress Notes Kannan Llamas, Provider - 12/06/2005 12:00 AM CDT documented in this encounter Plan of Treatment Not on filedocumented as of this encounter Visit Diagnoses Not on filedocumented in this encounter Care Teams Fire Protection Engineer Relationship Specialty Start Date End Date Marian Anderson APRN, CNP PCP - General 02/02/04 02/24/11 documented as of this encounter
--- OUTSIDE RECORDS SUMMARY | 2022-03-12 04:43 | XMS_ITS | Encounter Summary ---
:2001 Author Organization [employer] Address [address] [place] [address] Care Team Providers Name Role Phone Marian Gibbs APRN, CNP Primary Care Provider Unavailable Reason for Visit Reason Onset Date Comments Refill 05/10/2004 Encounter Details Date Type Department Care Team Description 05/10/2004 Refill [facility] Marian Gibbs APRN, CNP Refill [address] [place] [address] Social History Tobacco Use Types Packs/Day Years Used Date Smoking Tobacco: Never Comments: no smokers at home 02/11 Alcohol Use Standard Drinks/Week Comments Not Asked 0 (1 standard drink = 0.6 oz pure alcoho l) Sex Assigned at Date Recorded Not on file documented as of this encounter Nursing Notes 05/10/2004 11:59 PM ROLLOUT MANAGER Approved Prescriptions: Disp Refills HYDROCORTISONE 1% TOPICAL OINTMENT 45 gm 1 Sig: Apply thinly 2-3 times daily to eczema as directed Authorizing Provider: EDILBERTO GIBBS >> ZACKERY ZAPIEN Mon May 10, 2004 9:29 AM Attempt to contact family, both phone numbers we have in demographics are wrong numbers. Pt has prnrefills they need to call there pharmacy. >> GAEL FLORES I Mon May 10, 2004 7:48 AM please authorize refill if appropriate documented in this encounter Plan of Treatment Not on filedocumented as of this encounter Visit Diagnoses Diagnosis Contact dermatitis and other eczema, due to unspecified cause - Primary documented in this encounter Care Teams Negative Assembler Relationship Specialty Start Date End Date Marian Gibbs APRN, VALUE STREAM LEADER PCP - General 02/02/04 02/24/11 documented as of this encounter
--- OUTSIDE RECORDS SUMMARY | 2022-03-12 04:43 | XMS_ITS | Encounter Summary ---
:2001 Author Organization [facility] Address [address] [place] [address] Care Team Providers Name Role Phone Michele Hernandez MD Primary Care Provider Encounter Details Date Type Department Care Team Description 2001 Hospital None Unknown, Physici an EXAMINATION [address] [place] [address] (Wo rk) Social History Tobacco Use Types Packs/Day Years Used Date Smoking Tobacco: Never Smokeless Tobacco: Never Alcohol Use Standard Drinks/Week Comments Yes 0 (1 standard drink = 0.6 oz pure alcoho l) Sex Assigned at Date Recorded Not on file documented as of this encounter Progress Notes Unknown, Physician - 2001 12:00 AM CDT documented in this encounter Plan of Treatment Not on filedocumented as of this encounter Visit Diagnoses Not on filedocumented in this encounter Care Teams Slasher Tender Relationship Specialty Start Date End Date Michele Hernandez MD PCP - General Family Practice 08/13/21 [address] [place], [place] [id number] documented as of this encounter
--- OUTSIDE RECORDS SUMMARY | 2022-03-12 04:43 | XMS_ITS | Encounter Summary ---
:2001 Author Organization [facility] Address [address] [place] [address] Care Team Providers Name Role Phone Marian Anderson APRN, FILENET ARCHITECT Primary Care Provider Unavailable Reason for Visit Reason Onset Date Comments Refill 09/11/2006 Encounter Details Date Type Department Care Team Description 09/11/2006 Refill [facility] for Marian Anderson APRN, Refill [facility] FILENET ARCHITECT [address] [place] [address] Social History Tobacco Use Types Packs/Day Years Used Date Smoking Tobacco: Never Comments: no smokers at home 11/13 Alcohol Use Standard Drinks/Week Comments Not Asked 0 (1 standard drink = 0.6 oz pure alcoho l) Sex Assigned at Date Recorded Not on file documented as of this encounter Nursing Notes Erik Macias - 09/11/2006 1:33 PM CDTApproved Prescriptions: Disp Refills LORATADINE 10 MG/10ML OR SYRP one mon3 Si mg orally once a day as directed Authorizing Provider: ERIK MACIAS Nicki Ibrahim - 09/11/2006 1:16 PM CDT Pending Prescriptions: Disp Refills LORATADINE 10 MG/10ML OR SYRP one mon3 Si mg orally once a day as directed Nicki Ibrahim - 09/11/2006 1:16 PM CDT To provider per guidelines. Nicki Ibrahim R.N. documented in this encounter Plan of Treatment Not on filedocumented as of this encounter Visit Diagnoses Diagnosis Rhinitis Chronic rhinitis documented in this encounter Care Teams Manager In Training Relationship Specialty Start Date End Date Marian Anderson APRN, FILENET ARCHITECT PCP - General 02/02/04 02/24/11 documented as of this encounter
--- OUTSIDE RECORDS SUMMARY | 2022-03-12 04:43 | XMS_ITS | Encounter Summary ---
:2001 Author Organization [facility] Address [address] [place] [address] Care Team Providers Name Role Phone Unassigned, Provider Primary Care Provider Unavailable Encounter Details Date Type Department Care Team Description 12/09/2011 Imaging [facility] Radiology Wrist injury [address] [place] [address] Social History Tobacco Use Types Packs/Day Years [...] encounter Procedures Procedure Name Priority Date/Time Associated Diagnosis Comme nts XR WRIST RT 3 VIEWS Routine 12/09/2011 11:34 AM Wrist injury R esults for this CDT procedure are i n the results section. documented in this encounter Results XR WRIST RIGHT (ROUTINE) [...] documented in this encounter Visit Diagnoses Diagnosis Wrist injury Injury, other and unspecified, elbow, fo rearm, and wrist documented in this encounter Care Teams Moss Gatherer Relationship Specialty Start Date End Date Unassigned, Provider PCP - General Unknown Physician 02/25/11 02/21/[address] [place] [address] documented as of this encounter
--- OUTSIDE RECORDS SUMMARY | 2022-03-12 04:43 | XMS_ITS | Encounter Summary ---
:2001 Author Organization [facility] Address [address], [place] [address] Care Team Providers Name Role Phone Espinoza Anderson APRN, CNP Primary Care Provider Unavailable Reason for Visit Reason Onset Date Comments IMMUNIZATION QUESTIONS 04/18/2007 Encounter Details Date Type Department Care Team Description 04/18/2007 Telephone [facility] Maren Mccullough, IMMUNIZATION QUESTIONS [address] [place] [address] [address] ESPINOZA SANDEEP [phone] [place] [address] (Wo rk) Social History Tobacco Use Types Packs/Day Years Used Date Smoking Tobacco: Never Comments: no smokers at home 11/13 Alcohol Use Standard Drinks/Week Comments Not Asked 0 (1 standard drink = 0.6 oz pure alcoho l) Sex Assigned at Date Recorded Not on file documented as of this encounter Nursing Notes Maren Mccullough - 04/18/2007 9:25 AM CST Pt mom called asking for on pt immunization record. WORKER documented in this encounter Plan of Treatment Not on filedocumented as of this encounter Visit Diagnoses Not on filedocumented in this encounter Care Teams Turf And Grounds Supervisor Relationship Specialty Start Date End Date Espinoza Anderson APRN, CNP PCP - General 02/02/04 02/24/11 documented as of this encounter
--- OUTSIDE RECORDS SUMMARY | 2022-03-12 04:43 | XMS_ITS | Encounter Summary ---
:2001 Author Organization [employer] Address [address] [place] [address] Care Team Providers Name Role Phone Unassigned, Provider Primary Care Provider Unavailable Reason for Visit Reason Onset Date Comments FOLLOW-UP,LAB 12/09/2011 Encounter Details Date Type Department Care Team Description 12/09/2011 Telephone [facility] Constantine Porter MD FOLLOW-UP,LAB [address] [place], [place] [id number] Social History Tobacco Use Types Packs/Day Years Used Date Smoking Tobacco: Never Comments: no smokers at home 11/13 Alcohol Use Standard Drinks/Week Comments Not Asked 0 (1 standard drink = 0.6 oz pure alcoho l) Sex Assigned at Date Recorded Not on file documented as of this encounter Nursing Notes Her, Raisa Baker CMA - 12/09/2011 3:59 PM CDT Pt's mother informed and phone number given, state would like ADHD packet sent to pt in mail. Raisa Damico CMA Her, Raisa Baker CMA - 12/09/2011 11:54 AM CDT Pt's xray on wrist shows healed broken wrist and it has angled. Dr Dempsey ordered urology and ortho for pt, pls have pt schedule. Also pls inform pt he needs to get ADHD packet, can mail or be picked up at clinic. LMTRCB Raisa Damico, SUSIE documented in this encounter Plan of Treatment Not on filedocumented as of this encounter Visit Diagnoses Not on filedocumented in this encounter Care Teams Fur Blender Relationship Specialty Start Date End Date Unassigned, Provider PCP - General Unknown Physician 02/25/11 02/21/[address] [place] [address] documented as of this encounter
--- OUTSIDE RECORDS SUMMARY | 2022-03-12 04:43 | XMS_ITS | Encounter Summary ---
:2001 [facility] Address [address] [place] [address] Care Team Providers Name Role Phone Destiny Peralta MD Primary Care Provider Reason for Referral Consult/Transfer Care (Routine) - Closed Specialty Diagnoses / Procedures Referred By Contact Refer red To Contact Destiny Peralta MD [address] [place] [address] Referral ID Status Reason Start Date Expiration Date Visits Requ ested Visits Authorized [id number] Closed 09/24/2013 1 1 Scheduling Instructions Please stop at the check out desk as you leave the clinic to make an appointment with an RN. If it is more convenient, the clinic sta ff will call you to schedule an appointment. Consult/Transfer Care (Routine) - Closed Specialty Diagnoses / Procedures Referred By Contact Refer red To Contact Destiny Peralta MD [address] [place] [address] Referral ID Status Reason Start Date Expiration Date Visits Requ ested Visits Authorized [id number] Closed 09/24/2013 1 1 Scheduling Instructions Your provider has [facility] ment [facility] A machine joiner cementer will contact you within the next 3 busin ess days to assist you in setting up this appointment. Consult/Transfer Care (Routine) - Incomplete Specialty Diagnoses / Procedures Referred By Contact Refer red To Contact Diagnoses Stress (HRC) Destiny Peralta MD [address] [place] [address] Referral ID Status Reason Start Date Expiration Date Visits V isits Requested Authorized [id number] Incomplete 09/24/2013 1 1 Scheduling Instructions Your provider has recommended an appoint ment with [facility]. You may call [phone] to schedule your appointmen t. If you prefer, a machine joiner cementer will contact you within the next 3 business days to a ssist you in setting up this appointment. Please note that in order to maintain ac cess for all patients; [facility] does have a late cancellation policy. In orde r to avoid being restricted from scheduling future appointments in [facility] you will need to cancel at least 48 hours in advance. Reason for Visit Reason Comments PE,C&TC Encounter Details Date Type Department Care Team Description 09/24/2013 Office Visit [facility] Destiny Peralta Routine or child heal th check (Primary Dx); [address] MD Mikhail Asthma with acute exacerbation, unspecif ied asthma severity; [place] [address] Wheezing; [phone] [place], [place] [address] Allergy to seafood; [phone] (Wo rk) Allergy to fish; Allergic rhinitis due to other allergen; Other chronic a llergic conjunctivitis; Learning disabi lity; Stress Social History Tobacco Use Types Packs/Day Years [...] Sign Reading Time Taken Comments Blood Pressure 102/64 09/24/2013 10:39 AM CDT Pulse 98 09/24/2013 10:39 AM CDT Temperature 36.8 ??C (98.2 ??F) 09/24/2013 10:39 AM CDT Respiratory Rate - - Oxygen Saturation 96% 09/24/2013 10:39 AM CDT Inhaled Oxygen Concentration - - Weight 42 kg (92 lb 9.6 oz) 09/24/2013 10:39 AM CDT Height 148 cm (4' 10.27) 09/24/2013 10:39 AM CDT Body Mass Index 19.17 09/24/2013 10:39 AM CDT Body Mass Index Percentile 71.25 % 09/24/2013 10:39 AM C DT Growth Chart: [facility] (Boys, 2-20 Years) documented in this encounter Patient Instructions Patient InstructionsPhillip Whyte LPN - 09/24/2013 10:48 AM CDT It has been a pleasure taking care of your child today. A dentist appointment each year is important for your child's health. Your child's insurance may payfor this. If you don't know where to take your child to see the dentist, check your child's insurance card or call [phone] for help. 7-11 Years: A Parent???s Guide Your developing [...] it. The school psychologist, your child???s teacher, manpower development specialist manager, counselors and your health care provider, are all important sources of help. A parent advocate group called [facility] can also be a great help with school problems. Call [phone]. Sexuality As children approach age 11, they [...] basketball teams, etc., are sponsored by most Swr[employer] and schools. Coaches are usually community volunteers with children the same age as yours. If your child is interested in team sports, try to find a assistant women's basketball coach who emphasizes learning the sport and having fun rather than just winning. Consider being a assistant women's basketball coach yourself if you have the time. [...] helping your kids say ???no?? to tobacco: ??? Don???t allow smoking in your home. ??? Don???t smoke. If you do, don???t smoke in front of children. ??? Make it clear that you don???t approve of smoking. ??? Don???t let your children see or handle your smoking materials. ??? Warn your children about the dangers of [...] home, store them unloaded and locked. ?? 2003- [facility] -12/15. documented in this encounter Progress Notes Destiny Peralta MD - 09/24/2013 10:48 AM CDT Subjective Sue Ray is a 12 yr male who presents accompanied by his father for routine director child development center. Parental/Patient Concerns Multiple allergies- father was not aware of results of allergy visit from a few months ago. Learning disability- tested through school. Not doing well in school. Has special ed services. Problems with being easily distracted. Just finished 6th grade at [employer] in [place]. Plan is to start 7th grade in fall. Father recently obtained full custody. Patient is with mother one day per week and every other weekend. Behavioral health- cries very easily per father. Saw Aunchristina Purcell once. Intends to schedule follow-up but has not had a chance to yet due to custody issues. refill medications,asthma/breathing Pt is having trouble with his breathing. Father has asthma. Father thinks that patient is having an asthma attack. He has a tight cough. He has been having shallow rapid breathing at night. Patient used father's albuterol inhaler yesterday morning (last albuterol). Father's nephew has ADHD. SCHOOL Name: [email or web address] Grade: entering 7th Success: not too well Sports/Recreational Activities Sports: none Exercise: adequate Extracurricular Activities: none Recreation/Hobbies/TV: 2+ hours/day screen time Cardiovascular Risk Obesity- father's family. I have reviewed and updated the family, past and surgical history. Daily Activities Nutrition: well balanced and varied diet, adequate milk intake Sleep: adequate sleep, sleeps in own bed, stays up late Dental Care: last dental visit within 6 months brushes daily does not floss daily Developmental Assessment Family/Relationships/Community Current Living Situation: lives with father Family: parents Peer: sociable, participates in organized activities Abuse: absent Mental Health Issues: follows behavioral health Active Support/Resources: Family/Friends and [place] Environmental Risks Tuberculosis Screening: Not indicated Review of Systems Detailed review of systems including constitutional, skin, eyes, ENT, resp, CVS, GI & , revealed no abnormality except as detailed above. Objective Temp(Src) 98.2 ??F (36.8 ??C) (Tympanic) Ht 4' 10.27 (1.48 m) Wt 92 lb 9.6 oz (42.003 kg) BMI19.18 kg/m2 Estimated body mass index is 19.18 kg/(m^2) as calculated from the following: Height as of this encounter: 4' 10.27 (1.48 m). Weight as of this encounter: 92 lb 9.6 oz (42.003 kg). Normal Abnormal GENERAL X HEENT Head X Eyes/Nose X Ears X Mouth/Pharynx X NECK X LYMPHATICS X LUNGS X CV X ABDOMEN X X MS X NEURO X SKIN X Vision Objective exam completed. No problems found. and Subjective assessment. No problems found Visual Acuity Screening performed and documented in nurse's note., Right 20/25-1 , Left 20/25-1 and 20/25-1 Hearing Objective exam completed. No problems found. and Subjective assessment. No problems found Audiogram passed. Toi Staging GENITALS 1: preadolescent PUBIC HAIR 2: sparse growth of long, slightly pigmented downy hair, straight or only slight Assessment Healthy child. Asthma with acute exacerbation- albuterol neb x 1 given in clinic with improved air exchange but persistent wheezing. Will treat with prednisone 20 mg BID x 5 days, albuterol every 4 hours on a scheduled basis while awake for the next few days and then as needed, start Flovent 44 two puffs twice daily. Use a spacer with inhalers. Continue Singulair. Followup in clinic in one week to discuss asthma. Seek care [facility] if symptoms acutely worsen despite the above interventions. Allergies to fish and mold- loratadine, Flonase. Schedule allergy follow-up visit. Learning disability- IEP to be re-evaluated this fall according to father. Attention concerns- behavioral health/ADHD intake packet provided to father. Encouraged him to have packet completed by parents and teachers and to schedule a 30 minute follow-up appt to review. Scheduled behavioral health follow-up visit with Aunchristina Purcell. 20 additional minutes were spent face to face with patient and father in counseling regarding management of acute asthma exacerbation, academic and behavioral concerns. Plan Per orders and patient instructions. Counseling Immunizations: Parent advised to return child in near future for deferred immunizations. Social: increased responsibility Parenting: increased autonomy in decision making Nutrition: age specific nutritional needs Play and communication: organized sports/regular exercise and appropriate use of TV/video games (total Screen Time) Health: adequate rest at night Dental: Reinforced need for regular brushing and flossing. Emphasized need for annual dental exam by a licensed dentist. Safety: seat belts Follow-up Next preventive health care visit due at next even-numbered age birthday documented in this encounter Nursing Notes Phillip Whyte LPN - 09/24/2013 11:25 AM CDT Albuterol Sulfate 0.083% via neb. Lot [id number] Expiration 12/23 Phillip Whyte LPN documented in this encounter Plan of Treatment Scheduled Referrals Name Type Priority Associated Diagnoses Order S chedule BEHAVIORAL HEALTH Referral Routine Stress Ordered: 0 09/24/2013 NURSE APPOINTMENT Referral Routine Ordered: 0 09/24/2013 ADULT/PEDS [[id number]] PT CARE COORDINATION Referral Routine Ordered : 09/24/2013 [facility]ALTH [facility] documented as of this encounter Visit Diagnoses Diagnosis Routine infant or child health check - P rimary Asthma with acute exacerbation, unspecif ied asthma severity (HRC) Wheezing Allergy to seafood Allergy to fish Other adverse food reactions, not elsewh ere classified Allergic rhinitis due to other allergen Other chronic allergic conjunctivitis Learning disability Other specific developmental learning di fficulties Stress (HRC) Other psychological or physical stress, not elsewhere classified documented in this encounter Care Teams Patient Services Manager Relationship Specialty Start Date End Date Destiny Peralta MD PCP - General Pediatric Medicine 09/23/13 01/21/15 [address] [place] [address] documented as of this encounter
--- OUTSIDE RECORDS SUMMARY | 2022-03-12 04:43 | XMS_ITS | Encounter Summary ---
:2000 Author Organization [facility] Address [address], [place] [address] Care Team Providers Name Role Phone Unavailable Primary Care Provider Unavailable Encounter Details Date Type Department Care Team Description [address] [facility] Milan Borges MD SI NGL BORN IN HOSP-NO C/DELIVERY Social History Tobacco Use Types Packs/Day Years Used Date Smoking Tobacco: Never Assessed Sex Assigned at Date Recorded Not on file documented as of this encounter Plan of Treatment Not on filedocumented as of this encounter Visit Diagnoses Diagnosis Single liveborn, born in hospital, [facility] without mention of delivery documented in this encounter
--- OUTSIDE RECORDS SUMMARY | 2022-03-12 04:43 | XMS_ITS | Encounter Summary ---
:2001 Author Organization [facility] Address [address] [place] [address] Care Team Providers Name Role Phone Marian Anderson APRN, CNP Primary Care Provider Unavailable Reason for Visit Reason Comments RASH Encounter Details Date Type Department Care Team Description 08/11/2005 Office Visit [facility] Marian Anderson, MOLLUSCUM CONTAGIOSUM (Prima ry Dx); [address] [facility] [place] [address] Social History Tobacco Use Types Packs/Day Years [...] - - Temperature 36.1 ??C (97 ??F) 08/11/2005 2:00 PM CDT Respiratory Rate - - Oxygen Saturation - - Inhaled Oxygen Concentration - - Weight 15.9 kg (35 lb) 08/11/2005 2:00 PM CDT Height - - Body Mass Index - - documented in this encounter Progress Notes 08/11/2005 2:00 PM CDT Susan Ray is a 4 yr male who presents for care, accompanied by mother. History is obtained from mother. cc: rash SUBJECTIVE: rash on face over a month, not pruritic PMH: lead of 9 not fup as recommended There is no problem list on file for this patient. ROS: otherwise negative OBJECTIVE: Temp (Src) 97 (Tympanic) Wt 35 lbs (15.9kg) skin: 3 tiny vesiculated papules on right cheek ASSESSMENT: molluscum PLAN: discussed natural course of molluscum, options, mother elects to watch lead, call if elevated CHELSEA Zuleta documented in this encounter Nursing Notes 08/11/2005 2:00 PM CDT >> GREGORY OLIVEIRA 08/11/2005 2:20 pm Payor: PMAP - FAMILY MEDICAID Plan: [facility]- 2 Product Type: HMO pt in for rash. Immunization History: DTaP 01/18/2002 03/11/2002 05/28/2002 04/14/2003 Hib-PRP-OMP 04/14/2003 Hib/HBV 01/18/2002 03/11/2002 05/28/2002 IPV(poliomyelitis) 01/18/2002 03/11/2002 05/28/2002 Influenza (6-35 Mos) 03/11/2002 04/16/2002 MMR 12/24/2002 Pneumococcal, Peds 12/24/2002 Varicella 12/24/2002 Gregory Oliveira CMA documented in this encounter Plan of Treatment Not on filedocumented as of this encounter Procedures Procedure Name Priority Date/Time Associated Diagnosis Comme nts LEAD, FINGERSTICK Routine 08/11/2005 2:34 PM Screen Contaminat ion Results for this CDT Nec procedure are i n the results section. documented in this encounter Results LEAD (08/11/2005 2:34 PM CDT) athologist Signature Lead, Blood <5 <10 mcg/dl [facility] Specimen Anatomical Collection Method Collection Time Receive d Time (Source) Location / / Volume Laterality 08/11/2005 2:34 PM 6 2:35 CDT PM CDT Marina Anderson APRN, [facility] Performing Organization Address City/State/ZIP Code Phon e Number [facility] [phone] [address] documented in this encounter Visit Diagnoses Diagnosis Molluscum contagiosum - Primary Screening for chemical poisoning and oth er contamination documented in this encounter Care Teams Bulk Fluids Handler Relationship Specialty Start Date End Date Marian Anderson APRN, DENTAL HYGIENE TEACHER PCP - General 02/02/04 02/24/11 documented as of this encounter
--- OUTSIDE RECORDS SUMMARY | 2022-03-12 04:43 | XMS_ITS | Encounter Summary ---
:2001 Author Organization [facility] Address [address] [address] Care Team Providers Name Role Phone Espinoza Gibbs APRN, EDGE INKER Primary Care Provider Unavailable Reason for Visit Reason Onset Date Comments Refill 09/06/2006 Encounter Details Date Type Department Care Team Description 09/06/2006 Refill [facility] for Espinoza Gibbs APRN, Refill [employer] [facility] EDGE INKER [facility] [place] [address] Social History Tobacco Use Types Packs/Day Years Used Date Smoking Tobacco: Never Comments: no smokers at home 11/13 Alcohol Use Standard Drinks/Week Comments Not Asked 0 (1 standard drink = 0.6 oz pure alcoho l) Sex Assigned at Date Recorded Not on file documented as of this encounter Nursing Notes Espinoza Gibbs - 09/07/2006 11:58 AM CDTApproved Prescriptions: Disp Refills TRETINOIN 0.025 % EX CREA standar0 Sig: use once a day at bedtime; wash off before going outdoors Authorizing Provider: ESPINOZA GIBBS Rianna Felipe - 09/07/2006 11:43 AM CDT Pending Prescriptions: Disp Refills TRETINOIN 0.025 % EX CREA 0 Rianna Felipe - 09/07/2006 11:43 AM CDT to provider for review for refill. Rianna Felipe RN Raffaele Gupta - 09/06/2006 2:26 PM CDT Pharmacy is requesting this med: Loratadine daniel's syurp. Give 5mls by mouth every day. Raffaele Gupta documented in this encounter Plan of Treatment Not on filedocumented as of this encounter Visit Diagnoses Diagnosis Molluscum contagiosum - Primary documented in this encounter Care Teams Lead Designer Relationship Specialty Start Date End Date Espinoza Gibbs APRN, EDGE INKER PCP - General 02/02/04 02/24/11 documented as of this encounter
--- OUTSIDE RECORDS SUMMARY | 2022-03-12 04:43 | XMS_ITS | Encounter Summary ---
:2001 Author Organization [facility] Address [address] [place] [address] Care Team Providers Name Role Phone Unassigned, Provider Primary Care Provider Unavailable Reason for Visit Reason Onset Date Comments Patient Walk Out 09/09/2011 Patient left without being seen Encounter Details Date Type Department Care Team Description 09/09/2011 [facility] WITHOUT BEING [address] [facility] SEEN/FINISHED/[place] [address] (Primary Dx) [phone] Social History Tobacco Use Types Packs/Day Years Used Date Smoking Tobacco: Never Comments: no smokers at home 11/13 Alcohol Use Standard Drinks/Week Comments Not Asked 0 (1 standard drink = 0.6 oz pure alcoho l) Sex Assigned at Date Recorded Not on file documented as of this encounter Progress Notes Angie Khan - 09/09/2011 5:47 PM CDT Patient left without being seen. documented in this encounter Plan of Treatment Not on filedocumented as of this encounter Visit Diagnoses Diagnosis LEFT WITHOUT BEING SEEN/FINISHED/REGISTE RED - Primary documented in this encounter Care Teams Social Worker Health Services Relationship Specialty Start Date End Date Unassigned, Provider PCP - General Unknown Physician 02/25/11 02/21/[address] [place] [id number] documented as of this encounter
--- OUTSIDE RECORDS SUMMARY | 2022-03-12 04:43 | XMS_ITS | Encounter Summary ---
:2001 Author Organization [facility] Address [address] [place] [address] Care Team Providers Name Role Phone Marian Anderson APRN, CNP Primary Care Provider Unavailable Encounter Details Date Type Department Care Team Description 04/14/2003 Correspondence External to Unknown, [facility] [address] [place] [address] (Wo rk) Social History Tobacco Use Types Packs/Day Years Used Date Smoking Tobacco: Never Comments: no smokers at home 04/14/03 Alcohol Use Standard Drinks/Week Comments Not Asked 0 (1 standard drink = 0.6 oz pure alcoho l) Sex Assigned at Date Recorded Not on file documented as of this encounter Progress Notes Unknown, Physician - 04/14/2003 12:00 AM SMOKE AND FLAME SPECIALIST documented in this encounter Plan of Treatment Not on filedocumented as of this encounter Visit Diagnoses Not on filedocumented in this encounter Care Teams Woods Boss Relationship Specialty Start Date End Date Marian Anderson APRN, CNP PCP - General 02/02/04 02/24/11 documented as of this encounter
--- OUTSIDE RECORDS SUMMARY | 2022-03-12 04:43 | XMS_ITS | Encounter Summary ---
:2001 Author Organization [facility] Address [address] [address] Care Team Providers Name Role Phone Marian Anderson APRN, CNP Primary Care Provider Unavailable Encounter Details Date Type Department Care Team Description 08/11/2005 Correspondence None [facility], Provider CONSENT AND RELEASE/ [facility] Social History Tobacco Use Types Packs/Day Years Used Date Smoking Tobacco: Never Comments: no smokers at home 02/11 Alcohol Use Standard Drinks/Week Comments Not Asked 0 (1 standard drink = 0.6 oz pure alcoho l) Sex Assigned at Date Recorded Not on file documented as of this encounter Progress Notes Kannan Llamas, Provider - 08/11/2005 12:00 AM CDT documented in this encounter Plan of Treatment Not on filedocumented as of this encounter Visit Diagnoses Not on filedocumented in this encounter Care Teams Mail Teller Relationship Specialty Start Date End Date Marian Anderson APRN, CNP PCP - General 02/02/04 02/24/11 documented as of this encounter
--- OUTSIDE RECORDS SUMMARY | 2022-03-12 04:43 | XMS_ITS | Encounter Summary ---
:2001 Author Organization [facility] Address [address] [address] Care Team Providers Name Role Phone No Primary/Referring, Phy Primary Care Provider Unavailable Reason for Visit Reason Comments COUGH WHEEZING Encounter Details Date Type Department Care Team Description 02/22/2013 [facility], Allergic rhinitis due to other allergen (Primary Dx); [facility] MD Randall Other chronic allergic conju nctivitis; [address] [place]ough; [place] [address] Allergy to seafood [phone] Social History Tobacco Use Types Packs/Day Years Used Date Smoking Tobacco: Never Comments: no smokers at home 11/13 Alcohol Use Standard Drinks/Week Comments Not Asked 0 (1 standard drink = 0.6 oz pure alcoho l) Sex Assigned at Date Recorded Not on file documented as of this encounter Last Filed Vital Signs Vital Sign Reading Time Taken Comments Blood Pressure 100/56 02/22/2013 8:46 AM FIRST DYER Pulse 88 02/22/2013 8:46 AM FIRST DYER Temperature - - Respiratory Rate - - Oxygen Saturation - - Inhaled Oxygen Concentration - - Weight 41.1 kg (90 lb 9.6 oz) 02/22/2013 8:46 AM FIRST DYER Height 144.8 cm (4' 9) 02/22/2013 8:46 AM FIRST DYER Body Mass Index 19.61 02/22/2013 8:46 AM FIRST DYER Body Mass Index Percentile 79.71 % 02/22/2013 8:46 AM CS T Growth Chart: CDC (Boys, 2-20 Years) documented in this encounter Patient Instructions Patient InstructionsRandall Milan MD - 02/22/2013 10:05 AM CST If you have questions, please call the Allergy department at [phone]. Your main problem is coughing. In light of your history it may be due to bronchial hyperreactivity or mild bronchial asthma. Your breathing test was essentially WNL. You have allergy nose and eye problems due to cats, dogs and outdoor molds. As you are only 12 yearsold, it is possible that you may develop more and more allergy problems in the near future. You are also allergic to fish. 1. Start Singulair 5 mg once daily. 2. Loratadine 10 mg once a day as needed. 3. Flonase 1 spray to each nostril once a day. 4. Albuterol as needed. 5. Avoid fish. 6. Carry AuviQ (epinephrine). 7. RTC in 3 months. T DYER documented in this encounter Progress Notes Randall Milan MD - 02/22/2013 1:05 PM CST AUTHOR: RANDALL MILAN ALLERGY EVALUATION (NEW PATIENT) SUBJECTIVE: This 12 years old male, who was born in and has lived in [place], was self-referred to our allergy clinic for the evaluation of his breathing, nasal and ocular problems. He has also developed a reaction after eating catfish. He is here with his aunt today. His history was obtained via his aunt and himself. They are relatively poor historians. His mother also filled out a questionnaire too. His main problem (chief complaint) is coughing. It is accompanied by wheezing and SOB. His problem is worse in spring and summer. His aunt noticed a seasonal exacerbation since when he was 7 or 8 years old. His problem is worse when he catches cold. Dog and cat exposures also trigger his breathing problem.He rarely uses albuterol. The last time he used albuterol was 1 to 2 years ago. He also started seasonal nasal and ocular problem is spring and summer when he was 7 or 8 years old.His problem is nasal congestion, itch nose, sneezing, itch and watery eyes. Animal exposures, smoke,house dust, odors and weather changes make his nasal and ocular problem worse. He has been using Benadryl and loratadine with help. He has never used intranasal steroids. When he was 7 or 8 years old, he developed swollen face and difficulty in breathing such as chest tightness after eating catfish. Since then he stopped eating fish. He is able to eat shrimp without anyproblem. R.O.S.: Constitutional; no fever, chills or weight loss. Eyes; itchy and watery eyes. ENT; no plugging or popping. GI; no nausea or vomiting. CV; no chest pain or cyanosis. ; no burning or frequency. M/S; no joint pain, redness or swelling. Integument; no itchy or dry skin. Neuro; no tremor or dizziness. Endo; no hot flashes or excessive sweating. No known drug allergy. No chronic illness such as diabetes mellitus or seizure disorder. Family History: His father is asthmatic. His sister, 8, is also allergic to fish. Environment: The patient has lived in the present house for 2 years. It is equipped with a forced air heating system and a window unit air conditioner. There is a hardwood floor, cotton pillows and a regular mattress in the bedroom. Animals: none. Social History: There is no one who smoke in the house. OBJECTIVE: BP 100/56 Pulse 88 Ht 4' 9 (1.448 m) Wt 90 lb 9.6 oz (41.096 kg) BMI 19.6 kg/m2 General Appearance; in no acute distress, alert Eyes; conjunctivae clear, TIM ENT; nose showed moderately swollen nasal membranes with a small amount of clear discharge, throat no injection or swelling, neck supple with no tenderness, mass or thyromegaly, ears TM intact with normal light reflection Lung; clear without wheezing, rales or rhonchi and with good breath sound Heart; S1 plus S2 without murmur Heme/Lymph; no lymphadenopathy in cervical area Skin; hypopigmented spots on the face Neuro; speech normal, mental status intact, muscle tone normal Psych; no sign of depression or nervousness Spirometry; FVC 2.16 (predicted 2.28), FEV1 1.77 (2.08), FUO38-10% 1.44 (2.87) Allergy Skin Test: I checked the results (wheal and flare formations) by myself and confirmed it. See a separate skin test form for details. prick test; positive to cat, HS dog, alternaria, cladosporium and codfish, negative to others including perch, salmon and tuna with a positive histamine control. ASSESSMENT: Problem 1. Cough. I feel that his breathing problem has an asthmatic component. Allergy plays a certain role in his breathing problem. Today's PFT was essentially WNL. Problem 2. Allergic rhinitis due to cats, dogs and outdoor molds. Problem 3. Chronic allergic conjunctivitis. Problem 4. 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 He developed a reaction due to catfish. Today's skin test was positive to codfish. PLAN: 1. Start Singulair 5 mg once daily. 2. Loratadine 10 mg once a day as needed. 3. Flonase 1 spray to each nostril once a day. 4. Albuterol as needed. 5. Avoid fish. 6. Carry AuviQ (epinephrine). 7. RTC in 3 months. Randall Milan MD 4:19 PM 02/22/2013 T DYER Randall Milan MD - 02/22/2013 12:00 AM CST T DYER documented in this encounter Procedure Notes Randall Milan MD - 02/22/2013 12:00 AM CSTAssociated Order(s): SPIROMETRY--SCAN T DYER documented in this encounter Nursing Notes 02/22/2013 8:30 AM CST >> Mirella Pineda RN Fri Feb 22, 2013 10:24 AM Auvi Q teaching done. Pt verbalizes understanding. Completed per physician's orders. Mirella Pineda RN 10:24 AM 02/22/2013 documented in this encounter Plan of Treatment Not on filedocumented as of this encounter Procedures Procedure Name Priority Date/Time Associated Diagnosis Comme nts SPIROMETRY--SCAN 02/22/2013 12:00 AM Resu lts for this FIRST DYER procedure are i n the results section. documented in this encounter Results SPIROMETRY--SCAN (02/22/2013 12:00 AM FIRST DYER) Specimen (Source) Anatomical Location Collection Method / Collectio n Time Received Time / Laterality Volume 02/22/2013 Narrative This result has an attachment that is no t available. Transcriptions Randall Milan MD - 02/22/2013 12:0 0 AM CST Randall Milan MD EEG/RH documented in this encounter Visit Diagnoses Diagnosis Allergic rhinitis due to other allergen - Primary Other chronic allergic conjunctivitis Cough Allergy to seafood documented in this encounter Care Teams Induction Heating Equipment Setter Relationship Specialty Start Date End Date No Primary/Referring, Phy PCP - General 02/22/13 documented as of this encounter
--- OUTSIDE RECORDS SUMMARY | 2022-03-12 04:43 | XMS_ITS | Encounter Summary ---
:2000 Author Organization [employer] Address [address] [place] [address] Care Team Providers Name Role Phone Unassigned, Provider Primary Care Provider Unavailable Reason for Visit Reason Comments PE,C&TC Encounter Details Date Type Department Care Team Description 04/14/2003 Office Visit [facility] Marian Anderson, ROUTINE CHILD HEALTH EXAM (P rimary Dx); [address] [facility], [facility] VACCINE FOR DTP; [place] [address] VACCINE FOR H FLU TYPE B; [phone] DERMATITIS NOS Social History Tobacco Use Types Packs/Day Years [...] Pressure - - Pulse - - Temperature 36.4 ??C (97.6 ??F) 04/14/2003 11:44 AM NEWS WIRE PHOTO OPERATOR Respiratory Rate - - Oxygen Saturation - - Inhaled Oxygen Concentration - - Weight 12.9 kg (28 lb 8 oz) 04/14/2003 11:44 AM NEWS WIRE PHOTO OPERATOR Height 77 cm (2' 6.31) 04/14/2003 11:44 AM NEWS WIRE PHOTO OPERATOR Jhphui-ufh-Pksjck Percentile 99.89 % 04/14/2003 11:44 AM NEWS WIRE PHOTO OPERATOR Growth Chart: WHO (Boys, 0-2 years) Head Circumference 47 cm 04/14/2003 11:44 AM NEWS WIRE PHOTO OPERATOR Head Circumference Percentile 46.20 % 04/14/2003 11:44 A M NEWS WIRE PHOTO OPERATOR Growth Chart: WHO (Boys, 0-2 years) Body Mass Index 21.81 04/14/2003 11:44 AM NEWS WIRE PHOTO OPERATOR Body Mass Index Percentile 99.97 % 04/14/2003 11:[address] Growth Chart: [facility] (Boys, 0-2 years) documented in this encounter Patient Instructions Patient Kvbnqhruapfi20/05/2004 11:40 AM NEWS WIRE PHOTO OPERATOR It's been a pleasure seeing to your child's needs today. Please schedule his next well-child check-up at age 18 months. It's been a pleasure seeing to your child's needs today. Please schedule his next well-child check-up at age 18 months. 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 History is obtained from mother. PARENTAL CONCERNS: WCC and shots, records pending from [facility]. He is getting over a cold Concerns about vision: None Concerns about hearing/speech: None ----- MENTAL HEALTH RISKS: None CHEMICAL USE: None LEAD SCREENING: Child is over 12 months old with no documented prior lead level. Lead level required? YES PMH: No hospitalizations, surgery, serious illnesses, trauma including fractures or LOC, no specialist care, no medications. Immunizations were UTD to this visit DOMESTIC VIOLENCE SCREENING denied concerns FAMILY INTERACTIONS: No problems identified. DAYCARE: in home with parent FEEDING/NUTRITION: 2% Cow's Milk, Table Foods DAILY HABITS: sleep: 1 nap stool: No constipation, diarrhea, abdominal pain urine: after most feedings DEVELOPMENTAL MILESTONES: Greets people with Hi or similar. Feeds self with a spoon. Runs. Scribbles with pencil or crayon. Says 2 words besides Mama or Niall. Makes sequential sounds that sound like sent SAFETY EVALUATION: cleaning supplies kept out of reach of child medications kept out of reach scissors/knives out of reach parent/provider aware of burn first aid parent/provider aware of choking first aid child in toddler seat in car no smokers in home parent/provider believes home is safe child not left alone in bathtub child not allowed to eat small things (choking hazard) REVIEW OF SYSTEMS: The rest of the complete review of systems was negative. O> GENERAL: well-developed, well-nourished child who behaves age appropriately. SKIN: no abnormalities noted HEENT: Head: normocephalic Eyes: red reflexes present, pupils equally round and reactive to light, eyelids normal, conjunctivae normal, corneas clear and irises have normal appearance Ears: External canals free of lesions, TM's pearly rodney with normal light reflex Nose: clear, watery discharge Mouth: no deterioration of hard tissue, no inflammation, no swelling Pharynx: posterior palate and posterior pharyngeal wall normal, tonsils present and normal, uvula normal LUNGS: clear to percussion and auscultation, no wheezes, no crackles CV: regular rate and rhythm, normal S1 and S2 without murmur or click and femoral pulses present ABDOMEN: soft, without masses, distention or organomegaly : testes descended, circumcised MS: no torsional deformities, symmetric movements NEURO: gait normal for age, muscle tone normal, no asymmetry of posture or movement and range of motion normal VISION/HEARING: normal by subjective exam A> Healthy toddler. P> Per orders. Counseling: Social: dependence/autonomy Parenting: exploring Nutrition: appetite fluctuation Play and communication: imitation Health: lead risks and immunizations Dental: Advised of benefits and explained process of daily dental care. Safety: Discussed any problems discovered in Safety Evaluation. documented in this encounter Nursing Notes 04/14/2003 11:40 AM CST >> HEIDE PARKER 04/14/2003 1:27 pm Reviewed SmartForm Immunization questions. No contraindications found. Patient/Parent(s)/Legal Guardian(s) verbalized understanding of risks, possible side effects, and benefits of the vaccines and gave permission to administer the stated immunization(s). >> ZACKERY ZAPIEN 04/14/2003 11:46 am Patient coverage: Use XV modifier SmartSet(s) pt in for 15 months [facility]. There is no immunization history on file for this patient. DOMESTIC VIOLENCE SCREEN Have you or your child ever been physically, emotionally, verbally or sexually mistreated by anyone close to him or you? Parent states No, answering for the child and herself.. documented in this encounter Plan of Treatment Not on filedocumented as of this encounter Procedures Procedure Name Priority Date/Time Associated Comments Diagnosis COMPLETE BLOOD Routine 04/14/2003 12:17 Routine Child Results for this COUNT-NO DIFF PM NEWS WIRE PHOTO OPERATOR Health Exam procedure are in the results section. LEAD, FINGERSTICK Routine 04/14/2003 12:17 Routine Child Resul ts for this PM NEWS WIRE PHOTO OPERATOR Health Exam procedure are i n the results section. documented in this encounter Results HEMOGRAM/PLTS (04/14/2003 12:17 PM NEWS WIRE PHOTO OPERATOR) P athologist Signature WBC 8.9 5.0 - 19.5 [facility] k/ul RBC 4.09 3.0 - 5.4 [facility] M/ul Hemoglobin 11.8 10.0 - 18.0 [facility] g/dl HCT 34.4 31.0 - 55.0 [facility] % MCV 84.1 77 - 104 fl [facility] MCH 28.8 26 - 34 pg [facility] MCHC 34.2 32 - 36 % [facility] RDW 15.0 11.5 - 16.0 [facility] % Platelets 333 150 - 450 [facility] k/ul Specimen Anatomical Collection Method Collection Time Receive d Time (Source) Location / / Volume Laterality 04/14/2003 12:17 04/14/2003 PM NEWS WIRE PHOTO OPERATOR 12:20 PM NEWS WIRE PHOTO OPERATOR Marian Anderson APRN, CNP LAB_1 Performing Organization Address [facility] [place] Phon e Number Bevy [phone] [phone] LEAD (04/14/2003 12:17 PM NEWS WIRE PHOTO OPERATOR) athologist Signature Lead, Blood <5 <10 mcg/dl [facility] Specimen Anatomical Collection Method Collection Time Receive d Time (Source) Location / / Volume Laterality 04/14/2003 12:17 04/14/2003 PM NEWS WIRE PHOTO OPERATOR 12:20 PM NEWS WIRE PHOTO OPERATOR Marian Anderson APRN, CNP LAB_1 Performing Organization Address [facility] [place] Phon e Number Caarbon [phone] [phone] documented in this encounter Visit Diagnoses Diagnosis Routine or child health check - P rimary Need for DTP vaccine Need for prophylactic vaccination with c ombined hiimcuubkl-ttjtizy-czvjjcrip (DTP) vaccine Need for prophylactic vaccination agains t Hemophilus influenza type B (Hib) Contact dermatitis and other eczema, due to unspecified cause documented in this encounter Care Teams System Specialist Relationship Specialty Start Date End Date Unassigned, Provider PCP - General 05/15/02 02/01/[address] [place] [id number] documented as of this encounter
--- OUTSIDE RECORDS SUMMARY | 2022-03-12 04:43 | XMS_ITS | Encounter Summary ---
:2000 Author Organization [employer] Address [address] [place] [address] Care Team Providers Name Role Phone No Primary/Referring, Phy Primary Care Provider Unavailable Reason for Visit Reason Onset Date Comments Refill 04/01/2013 Encounter Details Date Type Department Care Team Description 04/01/2013 [facility]ill [facility] Allergy Randall Milan MD Refill Clinic [address] [place] [id number] Social History Tobacco Use Types Packs/Day Years Used Date Smoking Tobacco: Never Comments: no smokers at home 11/13 Alcohol Use Standard Drinks/Week Comments Not Asked 0 (1 standard drink = 0.6 oz pure alcoho l) Sex Assigned at Date Recorded Not on file documented as of this encounter Nursing Notes Alida Herr RN - 04/01/2013 1:27 PM CST Patient's last appointment with MD was 02-22-13. Next office visit recommended in 05-24. Appointment needed? No Treatment plan reviewed and medication requested recommended by MD? Yes Last refill na Appropriate time interval for refill request? Yes. Refill ok per standing order from Dr. Randall Herr RN 1:27 PM ENTER SUPERVISOR [employer] Jerry Weinstein - 04/01/2013 9:56 AM CST Refill request: Medication: montelukast (SINGULAIR) 5 MG chewable tablet Sig: Take 1 Tab by mouth daily Qty:90 Last Refill: 02/22/2013 90 day supply requested ENTER SUPER[employer] documented in this encounter Plan of Treatment Not on filedocumented as of this encounter Visit Diagnoses Diagnosis Allergic rhinitis due to other allergen - Primary Other chronic allergic conjunctivitis Cough documented in this encounter Care Teams Boot Maker Relationship Specialty Start Date End Date No Primary/Referring, Phy PCP - General 02/22/13 documented as of this encounter
--- OUTSIDE RECORDS SUMMARY | 2022-03-12 04:43 | XMS_ITS | Encounter Summary ---
:2000 Author Organization [employer] Address [address] [place] [address] Care Team Providers Name Role Phone Michele Hernandez MD Primary Care Provider Encounter Details Date Type Department Care Team Description 12/18/2012 Correspondence External to External, Provid er SCHOOL ASSESSMENTS [place] [address] Social History Tobacco Use Types Packs/Day Years [...] on filedocumented in this encounter Care Teams Province Archivist Relationship Specialty Start Date End Date Michele Hernandez MD PCP - General Family Practice 08/13/[id number] [place], [place] [id number] documented as of this encounter
[2022-03-12 07:05] LABS: SARS PCR* Negative SARS-CoV-2 (Negative)
--- NOTE | 2022-03-12 08:29 | ED.NURSE ---
dexamethasone and abx given. pt transferred to med surg via wheelchair with belongings and mother.
--- NOTE | 2022-03-12 14:08 | PM.IMHP1 ---
Hospitalist- H&P: HPI History of Present Illness Date Seen: 03/12/22 Chief complaint: Swollen Tonsils, difficulty speaking Narrative: Sue Ray is a 21 year old male presents with 2 day history of left-sided sore throat. Patient was well prior to the onset of this. No previous problems with sore throat or other illness. No obvious exposures. Sore throat is predominantly on the left side. Radiates to his ear. He is having some difficulties with swallowing. No trouble breathing. No cough, dyspnea, chest pain. No nausea vomiting. History of mild asthma which has not been bothering him. Review of Systems Narrative: No other recent symptoms of illness. No previous hospitalizations or surgeries. 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 Smokes 2 joints of marijuana a day. He rarely drinks alcohol. He does not smoke tobacco. Code status is full. Mother is healthcare power of corporate associate attorney. Highest level of school completed/degree received: high school graduate Smoking Status: Never smoker How often do you have a drink containing alcohol: never AUDIT-C Alcohol total score: 0 Caffeine: Yes service: No Meds Home Medications and Allergies Allergies Allergy/AdvReac Type Severity Reaction Status Date / Time pollen extracts Allergy Unknown Verified 03/12/22 11:20 shellfish derived Allergy Verified 03/12/22 11:20 Exam Narrative: Exam Narrative: He is alert and appears in no distress. He gives his own history. He has a slightly muffled voice. Eyes normal. Sclerae nonicteric. Oropharynx notable for prominent left tonsillar swelling. Mild right tonsillar swelling. Tonsils do meet in the midline posteriorly. No significant exudate. Neck is supple without mass he has fullness in the anterior cervical nodes without identifiable lymphadenopathy. No stridor. Respirations are clear to auscultation. Breathing is unlabored. No wheezing. Cardiovascular: S1, S2, regular rate and rhythm. No murmur gallop or rub. Abdomen is soft without tenderness or mass. Bowel sounds are present. No hepatosplenomegaly. Extremities with good perfusion. Intact pulses. No edema. Const: Vital Signs, click to edit/add: Vital Signs - 24 hr 03/12/22 01:22 03/12/22 02:25 03/12/22 02:40 Temperature 97.3 F L Pulse Rate [Pulse Oximeter] Pulse Rate [Right Pulse Oximeter] 83 Respiratory Rate 16 Blood Pressure [Le ft Arm] Blood Pressure [Le ft Upper Arm] 129/94 H 117/92 H 135/87 Blood Pressure [Ri ght Upper Arm] Pulse Oximetry 97 Oxygen Delivery Me thod Room Air 03/12/22 03:09 03/12/22 03:30 03/12/22 04:00 Temperature Pulse Rate [Pulse Oximeter] Pulse Rate [Right Pulse Oximeter] 93 96 75 Respiratory Rate 18 18 18 Blood Pressure [Le ft Arm] Blood Pressure [Le ft Upper Arm] 143/89 H Blood Pressure [Ri ght Upper Arm] 141/86 H 127/85 Pulse Oximetry 100 99 98 Oxygen Delivery Me thod Room Air Room Air Room Air 03/12/22 04:30 03/12/22 05:00 03/12/22 05:30 Temperature Pulse Rate [Pulse Oximeter] Pulse Rate [Right Pulse Oximeter] 86 62 76 Respiratory Rate 18 18 18 Blood Pressure [Le ft Arm] Blood Pressure [Le ft Upper Arm] Blood Pressure [Ri ght Upper Arm] 132/81 133/73 120/72 Pulse Oximetry 100 100 100 Oxygen Delivery Nm thod Room Air Room Air Room Air 03/12/22 06:00 03/12/22 06:30 03/12/22 08:57 Temperature 97.9 F Pulse Rate [Pulse Oximeter] 81 Pulse Rate [Right Pulse Oximeter] 69 72 Respiratory Rate 18 18 16 Blood Pressure [Le ft Arm] 132/70 Blood Pressure [Le ft Upper Arm] Blood Pressure [Ri ght Upper Arm] 107/59 L 133/81 Pulse Oximetry 99 100 97 Oxygen Delivery Me thod Room Air Room Air Room Air 03/12/22 11:30 Temperature 97.8 F Pulse Rate [Pulse Oximeter] 87 Pulse Rate [Right Pulse Oximeter] Respiratory Rate 18 Blood Pressure [Le ft Arm] 127/78 Blood Pressure [Le ft Upper Arm] Blood Pressure [Ri ght Upper Arm] Pulse Oximetry 99 Oxygen Delivery Me thod Room Air Documenting provider has reviewed patient's vital signs: yes Hospitalist - H&P: Result Labs Labs: Short CBC 03/12/22 Range/Units 02:25 WBC 18.83 H (4.50-11.00) K/uL Hgb 15.0 (13.5-17.5) gm/dL Hct 44.3 (37.0-53.0) % Plt Count 355 (140-440) K/uL BMP 03/12/22 02:25 Sodium 140 Potassium Not Reportable Chloride 104 Carbon Dioxide 20 BUN 10 Creatinine 0.7 Glucose 109 Calcium 9.9 Liver Function 03/12/22 Range/Units 02:25 Total Bilirubin 2.8 H (0.1-1.5) mg/dL AST 62 H (12-35) U/L ALT 31 (4-50) U/L Alkaline Phosphatase 159 H (40-150) U/L Albumin 5.6 H (3.3-5.0) g/dL Assessment and Plan Assessment and plan (1) Peritonsillar abscess: Problem comment: CT scan shows small left peritonsillar abscess Status: Acute (2) Severe needle phobia: Status: Acute (3) Abnormal liver enzymes: Problem comment: Possibly linked to acute illness. Possibly represents infectious mono. Monitor liver enzymes. Consider retesting for infectious mono Status: Acute Plan Admit to hospital for monitoring of airway, IV antibiotics. Dr. Maya has been consulted. Surgical drainage if getting worse Total time spent today is 60 minutes, 40 minutes in coordination of care and discussing with patient, family and other providers management of peritonsillar abscess
--- NOTE | 2022-03-12 15:36 | PC.NURSE ---
PATIENT ADMITTED THIS AM FROM ED WITH PERITONSILAR ABSCESS. AT ADMIT, PATIENT REPORTING PAIN WITH SWALLOWING AND VOICE SOUNDING MUFFLED. PATIENT DENIES DIFFICULT BREATHING OR SOB. SHIFT PROGRESSED, PATIENT DENIES PAIN WITH SWALLOWING AND REPORTS FEELING HUNGRY. DENIES N/V. PATIENT PLEASANT AND COOPERATIVE. SUPPORTIVE MADY-YUNIER AND CINDY-JORDY.
[2022-03-12] MEDS: SODIUM CHLORIDE 0.9 % (FLUSH) 10 ML SYRINGE 5 ML IVF (20:16)
[2022-03-12] MEDS: LACTATED RINGERS 1000 ML 1,000 ML 125 ML IV (22:36)
[2022-03-13] MEDS: AMPICILLIN/SULBACTAM 3 GM in 0.9 % SODIUM CHLORIDE Mini-bag 100 ML IVPB ×3 (02:31→14:30)
[2022-03-13 03:00] VITALS: BP 141/77; PULSE 73; RESP 20; TEMP 36.5; O2SAT 96
[2022-03-13] MEDS: LACTATED RINGERS 1000 ML 1,000 ML 125 ML IV (06:45)
--- NOTE | 2022-03-13 07:02 | PC.NURSE ---
15-07: indep in room. SO (Venessa) at bedside.?Calls appropriately. No c/o throat pain, states he feels better but his throat is dry since he has been NPO at midnight. Afebrile. LR running at 125ml/h. pt refused AM blood draw, technical writer and editor offered PRN Ativan & he still refused.
[2022-03-13 09:00] VITALS: BP 114/76; RESP 16; TEMP 36.7; O2SAT 98
--- NOTE | 2022-03-13 13:00 | P.DS_ITS ---
DS: Providers Provider Date Seen: 03/13/22 Date of admission: 03/12/22 10:54 Primary care physician: Not a Local Provider Admitting Clinician: Destiny Goodman MD Attending Physician on discharge: Sergo Rosario MD Date of Discharge: 03/13/22 DS: Diagnosis Discharge Diagnosis (1) Peritonsillar abscess: Status: Acute Problem details: CT scan shows small left peritonsillar abscess (2) Severe needle phobia: Status: Acute DS: Summary Hospital Course Hospital Course: Past medical history: Healthy. No previous surgeries. Social history: Mom here. Family history: No problems with anesthesia. 21-year-old male admitted to the hospital with severe left-sided sore throat. CT soft tissue showed small left peritonsillar abscess. He was seen in consultation by Dr. Maya. Recommended medical treatment. Patient was admitted to the hospital for IV Unasyn. He also received dexamethasone on admission. He has done well overnight. He reports no longer have any throat pain. He is able to eat without discomfort. He has had no fever. At the time of admission patient had abnormal labs including liver enzymes, leukocytosis, elevated CRP. Patient has refused blood draw tab these recheck today despite an offered for EMLA cream and lorazepam to reduce pain and anxiety.. Status at Discharge Functional status at discharge: independent ambulation Overall status at discharge: patient is back to baseline Time Spent with Patient Time attestation: Total time spent providing and/or coordinating discharge services: Time spent: Greater than 30 minutes Exam Narrative: Exam Narrative: He is alert appears in no distress. His voice is improved today. Oropharynx is examined. He still has mild swelling of the left tonsil area but much improved. No exudate or erythema. Neck is supple without mass, adenopathy or tenderness. Breathing is unlabored. Const: Vital Signs, click to edit/add: Vital Signs - 24 hr 03/12/22 15:00 03/12/22 15:00 03/12/22 19:00 Temperature 98.6 F 98.3 F Pulse Rate [Pulse Oximeter] 88 88 91 Respiratory Rate 18 18 18 Blood Pressure [Le ft Arm] 137/87 145/78 H Pulse Oximetry 99 99 Oxygen Delivery Me thod Room Air Room Air 03/12/22 22:57 03/12/22 22:57 03/13/22 03:00 Temperature 98.1 F 97.7 F Pulse Rate [Pulse Oximeter] 78 78 73 Respiratory Rate 18 18 20 Blood Pressure [Le ft Arm] 131/73 141/77 H Pulse Oximetry 99 96 Oxygen Delivery Me thod Room Air Room Air 03/13/22 09:00 Temperature 98.1 F Pulse Rate [Pulse Oximeter] Respiratory Rate 16 Blood Pressure [Le ft Arm] 114/76 Pulse Oximetry 98 Oxygen Delivery Me thod Room Air Documenting provider has reviewed patient's vital signs: yes Discharge Plan Discharge Disposition: Home, Self-Care Date of Admission: 03/12/22 10:54 Attending Provider on Discharge: Sergo Rosario Primary Care Provider: Provider,Not a Local Condition: Improved Anticipated Discharge Date/Time: 03/13/22 15:00 Discharge Medications: New amoxicillin-pot clavulanate 875-125 mg tablet 1 tab PO Q12H Qty: 14 0RF Discharge Orders: Discharge Order (Routine); Ordered 03/13/22 Ordered By: Sergo Rosario Additional Instructions: Return to the emergency department immediately if throat pain or swelling are getting worse. Follow-up in clinic in 1 week. It is important that you have a repeat blood test. Your liver tests are abnormal. This may be due to infectious mononuc leosis. That can also be evaluated on a blood test. It is important to know that your liver tests are getting better. Activity Level: Activity as Tolerated Discharge Diet: Regular Follow Up Appointments: Provider,Not a Local [Primary Care Provider] - (Follow-up at the [facility] [place] in 1 week. Get a blood test to check your liver enzymes and a mono test at that time) Forms: [employer] Info Instructions
[2022-03-13 13:41] VITALS: TEMP 36.1
--- NOTE | 2022-03-13 13:41 | ONC.NURNOTE ---
refused labs this am. alert and oriented. vs wnl. states feeling much better this am. jamison some reg food. discouraged rough ,spicey or hot food for now. good u/o. will be discharged to home after 1430 IV antibiotic.
== END 2022-03-13 15:14 | disposition home or self-care (01) | DRG 153 ==
LOC: ED 06:53 → MEDSURG 08:08
PROVIDERS: Admitting Provider Family Medicine; Emergency Provider Family Medicine; Visit Provider Family Medicine
DX: J36 Peritonsillar abscess (principal); F40.232 Fear of other medical care; J45.30 Mild persistent asthma, uncomplicated; R74.8 Abnormal levels of other serum enzymes
CPT/HCPCS: 36415; 70491; 80048; 80053; 80076; 85025; 86140; 86308; 87635; 99285; 99291; A9270; J0295; J1100; J2060; J7030; J7120; Q9967